=== PATIENT | female | born 1935 | race Caucasian/White ===

== ENCOUNTER 2023-07-29 14:34 | Outpatient (CLI) | payer MEDICARE, SELFPAY ==
--- NOTE | 2023-07-29 14:42 | USCV_ITS ---
Jes Durbin Age: 88 Gender: F : 1935 Exam Date: 07/29/2023 14:52 Ordering Phys: Kathy Person Technologist: Natacha Howell Exam Location: [facility] – [place] Indication: CARDIAC ARRHYTHMIA BP: 120 / 70 HR: 76 Rhythm: Other Technical Quality: Adequate MEASUREMENTS (Male / Female) Normal Values 2D ECHO LV Diastolic Diameter PLAX 3.5 cm 4.2 - 5.9 / 3.9 - 5.3 cm LV Systolic Diameter PLAX 2.3 cm LV Chamber Size 3.2 cm IVS Diastolic Thickness 1.2 cm 0.6 - 1.0 / 0.6 - 0.9 cm IVS Systolic Thickness 1.1 cm LVPW Diastolic Thickness 1.3 cm 0.6 - 1.0 / 0.6 - 0.9 cm LVPW Systolic Thickness 1.6 cm RV Chamber Size 3.1 cm LVOT Diameter 2.0 cm LV Ejection Fraction 2D Teich 63.8 % LA Diameter 4.0 cm LA Width 4.0 cm LA Height 5.7 cm RA Width 3.9 cm RA Height 3.7 cm Aorta at Sinotubular Diameter 2.4 cm IVC Diameter 2.1 cm M-MODE Aortic Annulus Diameter 2.5 cm LA Ao Ratio MM 1.8 MV E Point Septal Separation 1.9 cm DOPPLER AV Peak Velocity 416.0 cm/s LVOT Peak Velocity 117.0 cm/s AV Area Cont Eq vti 0.9 cm squared AV Area Cont Eq pk 0.9 cm squared MV Peak Velocity 194.0 cm/s MV Area PHT 1.4 cm squared Mitral E to A Ratio 1.4 MV E' Velocity 100.0 cm/s Mitral E to MV E' Ratio 10.3 Mitral E to LV E' Lateral Ratio 14.8 Mitral E to LV E' Septal Ratio 7.8 TR Peak Velocity 302.1 cm/s TR Peak Gradient 36.5 mmHg TR Mean Velocity 219.1 cm/s TR Mean Gradient 21.9 mmHg TR Velocity Time Integral 73.5 cm Right Atrial Pressure 3.0 mmHg Pulmonary Artery Systolic Pressu 39.5 mmHg RV Acceleration Time 0.2 s RV Ejection Time 0.3 s RV AcT/ET 0.5 FINDINGS Left Ventricle Normal left ventricular cavity size. Moderate left ventricular hypertrophy. Normal left ventricular systolic function. No regional wall motion abnormalities. Grade II/IV diastolic dysfunction, moderately elevated filling pressures. Left ventricular ejection fraction is estimated at 70 %. Right Ventricle Normal right ventricular size and systolic function. Mild pulmonary hypertension, RVSP 39.5 mmHg. Right Atrium Severely increased right atrial size. Left Atrium Severely increased left atrial size. Mitral Valve Structurally normal mitral valve. Moderate mitral valve regurgitation. The mitral regurgitation jet is directed toward the atrial septum. This suggest greater dysfunction of the posterior mitral valve leaflet. Aortic Valve Structurally normal trileaflet aortic valve. Severe aortic valve calcification. Moderate to severe aortic valve stenosis, mean gradient 36.2 mmHg, KARI 0.92 cm squared. No aortic valve regurgitation. Tricuspid Valve Structurally normal tricuspid valve. Mild tricuspid valve regurgitation. Pulmonic Valve Pulmonic valve not well visualized. Pericardium Normal pericardium without effusion. Aorta Normal ascending aorta dimension. IVC The inferior vena cava appears normal. CONCLUSIONS Normal left ventricular cavity size. Moderate left ventricular hypertrophy. Normal left ventricular systolic function. No regional wall motion abnormalities. Grade II/IV diastolic dysfunction, moderately elevated filling pressures. Left ventricular ejection fraction is estimated at 70 %. Normal right ventricular size and systolic function. Mild pulmonary hypertension, RVSP 39.5 mmHg. Severely increased right atrial size. Severely increased left atrial size. Structurally normal mitral valve. Moderate mitral valve regurgitation. The mitral regurgitation jet is directed toward the atrial septum. This suggest greater dysfunction of the posterior mitral valve leaflet. Structurally normal trileaflet aortic valve. Severe aortic valve calcification. Moderate to severe aortic valve stenosis, mean gradient 36.2 mmHg, KARI 0.92 cm squared. No aortic valve regurgitation. There are no prior echocardiogram studies to compare. Dr. Nikita Jeffries MD (Electronically Signed) Final Date: 29 July 2023 16:26 S
== END 2023-07-29 14:35 | disposition home or self-care (01) ==
LOC: RAD 14:38
PROVIDERS: Family Provider Physician Assistant Medical; Visit Provider Nurse Practitioner Family
DX: R01.1 Cardiac murmur, unspecified (principal); I27.20 Pulmonary hypertension, unspecified; I51.89 Other ill-defined heart diseases; I51.7 Cardiomegaly; I35.0 Nonrheumatic aortic (valve) stenosis; I34.0 Nonrheumatic mitral (valve) insufficiency
CPT/HCPCS: 93306

== ENCOUNTER → 2023-08-21 15:08 | Outpatient (BNVA) | payer MEDICARE, SELFPAY | PROVIDERS: Family Provider Physician Assistant Medical; PCP Family Medicine; Referring Provider Family Medicine; Visit Provider Internal Medicine | DX: R07.9 Chest pain, unspecified (principal); I35.0 Nonrheumatic aortic (valve) stenosis; I50.30 Unspecified diastolic (congestive) heart failure; R94.31 Abnormal electrocardiogram [ECG] [EKG] | CPT/HCPCS: 93005; 99205 ==

== ENCOUNTER 2023-09-24 08:37 | Outpatient (CLI) | payer MEDICARE, SELFPAY ==
--- NOTE | 2023-09-24 09:00 | XACV_ITS ---
Exam Room: 2 Ht: 152 cm Wt: 42 kg BSA: 1.33 m2 Gender: Female : 1935 Any Known Allergies: Penicillins Exam Priority: Routine Procedure(s): Procedure Description: Diagnostic procedure Procedure Description: Left Heart Catheterization Procedure Description: Right Heart Catheterization Procedure Description: O2 saturation Procedure Description: Miscellaneous Procedure Description: ACT Procedure Description: Coronary Angiography Diagnostic Cath Status: Elective Diagnostic Findings * Indication: Severe aortic stenosis. * Left Main is a short vessel. No significant disease.. * Left Anterior Descending has diffuse moderate disease.. * Circumflex has mild luminal irregularities. * Proximal Right Coronary Artery: Moderate 60% stenosis, KAMI: 3 flow. * Right heart cath and aortic valve study: Elevated right and left-sided cardiac pressures. Moderate pre and postcapillary pulmonary hypertension. Severe aortic stenosis. Aortic valve area: 0.6 cm2 Mean gradient across aortic valve is 37 mmHg. * Coronary angiography shows right dominance. Conclusions 1. Moderate proximal RCA stenosis. Medical therapy. 2. Severe aortic stenosis. 3. Moderate pre and postcapillary pulmonary hypertension. Elevated right and left-sided cardiac pressures. Recommendations * We will refer patient for TAVR evaluation. * Outpatient cardiology follow-up in 2 to 4 weeks. Interventional RX Recommendation: other cardiac therapy w/o CABG/PCI Diagnostic RX Recommendation: other cardiac therapy w/o CABG/PCI Pressures Phase:Rest AO : 104 / 79 ( 86 ) @ 10:56:00 AM 142 / 65 ( 96 ) @ 11:13:00 AM 145 / 63 ( 96 ) @ 11:13:00 AM 164 / 59 ( 100 ) @ 11:14:00 AM LV : 166 / 0 / 10 @ 11:13:00 AM 170 / 0 / 11 @ 11:13:00 AM RV : 52 / 3 / 13 @ 10:36:00 AM PA : 60 / 20 ( 36 ) @ 10:35:00 AM RA : a wave = 16 v wave = 12 mean = 12 @ 10:37:00 AM PCW : a wave = 25 v wave = 31 mean = 23 @ 10:34:00 AM O2 Content Phase:Rest PA : O2 Content O2: 62.1 @ 11:13:00 AM Saturations Phase:Rest AO : 95 @ 10:56:00 AM PA : 62 @ 11:13:00 AM Cardiac Output Phase:Rest Estuardo : 2 @ 11:39:29 AM Estuardo Cardiac Index: 2 @ 11:39:29 AM Flow Phase:Rest Qp : 2 @ 11:39:29 AM Qs : 2 @ 11:39:29 AM Valves Phase:DefaultPhase AV : 25.0 @ 11:39:29 AM 25.0 @ 11:39:29 AM AV Mean Gradient: 37.0 @ 11:39:29 AM 37.0 @ 11:39:29 AM AV Flow: 140 @ 11:39:29 AM AV Area: 0.5 @ 11:39:29 AM AV Area Index: 0.39 @ 11:39:29 AM Clinical Evaluation EBL: 5mL-10mL Procedural Details Procedure Consent Obtained. Admit Source: Out Patient. Pre-Procedure Time Out. Identified patient by full name and date of as verbalized by the patient/guarantor. Does the consent match the physician's order: Yes. Accurate & Complete Informed Consent: Yes. Inpatient/Outpatient History & Physical on Chart: Yes. If H&P is completed, is and addenduem needed: Yes; If yes, is the addendum complete: Yes. Visualize and Verify Site with Patient/Guarantor: N/A. Relevant Radiology Images available: Yes. The risks, benefits, and alternatives of sedation and/or procedure were discussed by physician. The patient agrees to continue. Procedure started. [facility] Clinical Fraility Score: 4: Vulnerable. Local Bulk Driver Indications: Valvular Disease. Correct patient, site and procedure confirmed by cath team. Current diagnosis: Aortic valve stenosis, Dyspnea. PERRLA. Strong, equal hand quarter backer bilaterally. Lungs clear x 5 lobes. IV Site on Arrival: 20 gauge in the left anticubital. IV Site on Arrival: 20 gauge in the right anticubital. IV Fluids: 0.9% NaCl at 75ml/hr. 0 mL infused prior to superintendent geophysical laboratory. Pre Procedural Pulses: bilateral dorsalis pedis was 3+. Pre Procedural Pulses: bilateral posterior tibial was 3+. Pre Procedural Pulses: bilateral radial was 3+. right radial was prepped with chloroprep then draped in the usual sterile fashion. right brachial was prepped with chloroprep then draped in the usual sterile fashion. right groin was prepped with chloroprep then draped in the usual sterile fashion. Baseline sample Acquired. HR: 77 BPM. Physician notified. Physician arrived. Physician scrubbed in. Immediate Pre-Procedure Time Out. Correct Patient: Yes; Correct Procedure: Yes; Correct Site: Yes; Correct Patient Position: Yes; Correct Supplies: Yes; Dried Flammable Prep: Yes; Blood Products Available: No;. Lidocaine 1% infiltrated to the right brachial. [place] MON catheter inserted. [place] guidewire in through swan catheter to reposition catheter. [place] wire out. Oximetry samples obtained. Normal venous range 60-85%. Normal arterial range :95-100%. Pressure measurements obtained. [place] out. Lidocaine 1% infiltrated to the right radial. Arterial access obtained. ABG drawn and sent with respiratory therapy. A 5 [place] TIG catheter in over wire. Wire out. Hand injection through catheter. Glidewire in through catheter. Unable to advance glidewire. Catheter and wire out. A TR Band was successful obtaining hemostatsis at the Right Radial artery insertion site. Lidocaine 1% infiltrated to the right groin. Oxygen started at 2liters/min via nasal canula. Arterial access obtained with micropuncture set. A 5 [place] JL4 catheter in over wire. Multiple views taken of left coronary artery. Catheter removed over the exchange wire. A 5 [place] JR4 catheter in over wire. Multiple views taken of right coronary artery. Glidewire in through catheter. Catheter removed over the glidewire. A 5 [place] AL1 catheter in over glidewire. Catheter advanced to left ventricle. Glidewire out. Exchange wire in through catheter. Catheter removed over the exchange wire. 6Fr [place] dual lumen catheter in over exchange wire. Exchange wire out. Gradient taken: LV 170/0,11; AO 145/63(96); Mean: 37mmHg, Peak to Peak: 25mmHg, SEP: 16sec/min; HR: 70 BPM; SpO2: 95%. Catheter removed over the exchange wire. Wire out. ACT drawn. Results 155 seconds. Therapeutic limits - pre-heparin administration 90-150 seconds and monitoring heparin during a vascular procedure >250 seconds. Physician scrubbed out. Post Procedure: Pulses reassessed and unchanged. PERRLA. Strong, equal hand quarter backer bilaterally. No VTE prophylaxis required. Medication's Wasted: Lidocaine 1% = 6 mL. Medication's Wasted: Nitro = 49.8 mg. Medication's Wasted: Other = Fentanyl 87.5 mcg. Medication's Wasted: Heparin = 2500 units. Total IV fluids: 50 mL. Post-op diagnosis: Severe Aortic Stenosis, Moderate RCA stenosis. Complications: None. Estimated blood loss: 5mL-10mL. Responsiveness - Normal response to verbal stimuli; alert and oriented, PERRLA. Airway - Unaffected, no intervention required; spontaneous ventilation. Circulation: W/N/L, pulses unchanged. Nausea/Vomiting: No. A Manual Compression was successful obtaining hemostatsis at the Right Brachial Vein insertion site. A Manual Compression was successful obtaining hemostatsis at the Right Femoral artery insertion site. Sheath(s) removed and manual pressure held until hemostasis was achieved. Sterile 4x4 and Op-site applied to the puncture site. No oozing or hematoma noted. Post sheath removal instructions were given and the patient verbalized understanding. Procedure completed. Patient transferred by bed to 1st floor. Vital chart was stopped. Access Site Site: Right Brachial Vein Sheath Size: 6 Fr Hemostasis Method: Manual Compression Hemostasis Success: Successful Site: Right Radial artery Sheath Size: 6 Fr Hemostasis Method: TR Band Hemostasis Success: Successful Site: Right Femoral artery Sheath Size: 6 Fr Hemostasis Method: Manual Compression Hemostasis Success: Successful Procedure Medications Start: 10:27 AM Stop: :27 AM Medication: Versed Amount: 0.5 mg Route: I.V. Start: 10:27 AM Stop: 10:27 AM Medication: Fentanyl Amount: 12.5 mcg Route: I.V. Start: 10:37 AM Stop: 10:37 AM Medication: Versed Amount: 0.5 mg Route: I.V. Start: 10:42 AM Stop: 10:42 AM Medication: Nitrogylcerin Amount: 200 mcg Route: I.A. Start: 10:55 AM Stop: 10:55 AM Medication: Versed Amount: 0.5 mg Route: I.V. Start: 11:03 AM Stop: 11:03 AM Medication: Heparin Amount: 1500 units Route: I.V. Start: 11:05 AM Stop: 11:05 AM Medication: Versed Amount: 0.5 mg Route: I.V. I, the attending physician, have reviewed and verified all procedure medications. Yes, all medications given per verbal order History/Risk Factors Hypertension: No Dyslipidemia: No Peripheral Arterial Disease (PAD): No Myocardial Infarction ([place]): No Obesity: No Renal Disease: No Tobacco Use: Never Prior Interventions PCI: No CABG: No Valve Surgery: No Report Signatures Finalized by Teja Rdz MD on 09/30/2023 11:39 AM
[2023-09-24] MEDS: aspirin 325 mg Tablet PO (09:10)
[2023-09-24] MEDS: diphenhydrAMINE 50 mg Capsule PO (09:15)
[2023-09-24 09:26] LABS: Basophils # 0.1 10^3/uL (0.0-0.1); Basophils % 0.9 %; Eosinophils # 0.2 10^3/uL (0.0-0.8); Eosinophils % 2.9 %; Hematocrit 39.3 % (36-47); Lymphocytes # 2.1 10^3/uL (0.8-4.8); Lymphocytes % 27.4 %; Mean Corpuscular HGB Conc 30.8 g/dL (30-55); Mean Corpuscular Hemoglobin 26.8 pg (27-33); Mean Corpuscular Volume 86.9 fl (85-98); Mean Platelet Volume 9.6 fL (7.4-10.4); Monocytes % 12.8 %; Neutrophils # 4.35 10^3/uL (1.8-7.7); Neutrophils % 55.7 %; Nucleated Red Blood Cells % 0 %; Platelet Count 231 10^3/cmm (157-399); Red Blood Count 4.52 10^6/uL (3.85-5.65); Red Cell Distribution Width 13.4 % (12.1-15.1); White Blood Count 7.81 10^3/uL (3.29-11.43)
[2023-09-24 09:31] VITALS: BP 169/95; PULSE 71; RESP 20; O2SAT 97; BMI 18.1
[2023-09-24 10:01] LABS: Anion Gap 12.6 (5-19); Blood Urea Nitrogen 18 mg/dL (8-23); Calcium 9.9 mg/dL (8.5-10.5); Carbon Dioxide 26 mmol/L (22-29); Chloride 101 mmol/L (98-107); Glucose 116 mg/dL (65-115); Osmolality Calculated 285 mOsm/kg (285-295); Potassium 3.6 mmol/L (3.5-5.1); Sodium 136 mmol/L (136-145)
--- NOTE | 2023-09-24 10:13 | W.PM.OPSFHP ---
Same Day Surgery H&P Indication for Procedure/HPI DATE OF PROCEDURE: September 24, 2023 CHIEF COMPLAINT/INDICATIONFOR SURGICAL PROCEDURE: Dyspnea on exertion/ severe aortic stenosis PREOP DIAGNOSIS: Dyspnea on exertion/ severe aortic stenosis PLANNED PROCEDURE: Operation Date: 09/24/23 10:00 Proposed Procedures p Right and Left Heart Cath 89438,I35.0,I20.0(Bilateral) - Teja Rdz M.D Possible percutaneous coronary intervention 88-year-old woman with past medical history of hypertension who has recently been diagnosed with severe aortic stenosis with aortic valve area of 0.9 cm? and mean gradient of 36 mmHg. She has been having dyspnea on exertion. Plan for right and left heart cath with valve study. Medications/Allergies* Home Medications Medication Instructions Recorded Confirmed Type amlodipine 5 mg tablet (Norvasc) 5 mg PO DAILY 08/21/23 09/24/23 History atenolol 100 mg tablet 100 mg PO DAILY 08/21/23 09/24/23 History furosemide 20 mg tablet (Lasix) 20 mg PO DAILY 08/21/23 09/24/23 History omeprazole 40 mg capsule,delayed 40 mg PO DAILY 08/21/23 09/24/23 History release potassium chloride 20 mEq 20 meq PO DAILY 08/21/23 09/24/23 History tablet,extended release trazodone 150 mg tablet 150 mg PO DAILY 08/21/23 09/24/23 History Allergies/Adverse Reactions Allergy/AdvReac Type Severity Reaction Status Date / Time Penicillins Allergy Unknown Unknown Verified 08/21/23 15:13 Current Medications: Generic Name Dose Route Start Last Admin Trade Name Freq PRN Reason Stop Dose Admin Sodium Chloride 1,000 mls @ 50 mls/hr 09/24/23 09:00 09/24/23 09:37 Sodium Chloride 0.9% IV 09/25/23 04:59 Not Given .Q20H ONE Pertinent Exam Findings alert, oriented x 3, clear to auscultation bilaterally and regular rate & rhythm Conscious Sedation Assessment PATIENT ASSESSED PRIOR TO SEDATION, WITH NO CHANGE NOTED: Yes AIRWAY EVAL/ANESTHESIA PLAN: normal airway, ASA III, Local Anesthesia, Risks, benefits & alternatives of sedation and/or procedure discussed and Patient agrees to continue as planned ADDITIONAL INFORMATION: Moderate sedation Recommendations Surgery/Procedure today (Left heart cath with possible percutaneous coronary intervention) Coding Level of Care Code Acute Code for Chg Fwd
[2023-09-24 10:52] LABS: Arterial Blood Gas Hematocrit 36.2 % (37-47); Blood Gas Operator Identificat glc; Blood Gas Sample Site Not specified; Blood Gas Sample Type Arterial; Carboxyhemoglobin 1.1 %THgb (0.4-20.1); HGB O2 Sat 93.2 % (95-100); Methemoglobin 0.3 % (0.4-1.5); Total Hemoglobin 11.8 g/dL (12-16)
[2023-09-24 10:56] LABS: Alveolar-Arterial Oxygen Gradi 8.2 mmHg (5-10); Arterial Blood Gas Hematocrit 35.6 % (37-47); Blood Gas Operator Identificat glc; Blood Gas Sample Site Not specified; Blood Gas Sample Type Arterial; Carboxyhemoglobin 1.1 %THgb (0.4-20.1); HGB O2 Sat 61.2 % (95-100); Methemoglobin 0.3 % (0.4-1.5); Total Hemoglobin 11.6 g/dL (12-16)
--- NOTE | 2023-09-24 12:07 | PC.NURSE ---
Patient presents to CSU from catheter finisher and inspector via a bed at 1150. She has a right radial TR-band and a dressing on the right groin area. cheesemaking laborer pulled her sheath right before bring her to CSU.
[2023-09-24 13:26] VITALS: PULSE 66; RESP 16; O2SAT 98
--- NOTE | 2023-09-24 16:10 | PC.NURSE ---
Patient has a right radial TR-band. 2ml's of air is removed at 1326. 2ml's of air is removed at 1358. 2ml's of air is removed at 1506. 2ml's of air is removed at 1515. 2ml's of air is removed at 1530. 2ml's of air is removed at 1545. TR-band is removed at 1610. No hematoma is noted. Dressing of a 2 x 2 and tegaderm is applied. Patient tolerated well.
[2023-09-24 16:30] VITALS: BP 132/64; PULSE 72; RESP 22; TEMP 36.6; O2SAT 97
--- NOTE | 2023-09-24 17:52 | PC.NURSE ---
Patient is being discharged to with family. Medication review, heart catheterization, post angiogram home care instructions, and follow up visits are discussed. Questions are answered. Belongings are sent with patient. Vitals are HR: 78, R: 16, O2: 97%, and BP:146/64. Patient left via a wheelchair.
== END 2023-09-24 18:16 | disposition home or self-care (01) ==
LOC: CCL 08:40 → CSU 11:55
PROVIDERS: PCP Family Medicine; Visit Provider Internal Medicine
DX: I35.0 Nonrheumatic aortic (valve) stenosis (principal); I27.20 Pulmonary hypertension, unspecified; I10 Essential (primary) hypertension; E78.5 Hyperlipidemia, unspecified
CPT/HCPCS: 36415; 80048; 82810; 85025; 85347; 93460; 96361; 96365; 99152; 99153; C1751; C1769; C1887; C1894; J1644; J2250; J3010; J3490; J7030; Q0163; Q9967

== ENCOUNTER → 2023-10-02 08:41 | Outpatient (BNVA) | payer MEDICARE, SELFPAY | PROVIDERS: PCP Family Medicine; Visit Provider Nurse Practitioner Family | DX: I35.0 Nonrheumatic aortic (valve) stenosis (principal) | CPT/HCPCS: 36415; 80048; 99214 ==

== ENCOUNTER 2023-10-09 09:42 | Observation (INO) | payer MEDICARE, SELFPAY ==
[2023-10-09] VITALS (11 sets, daily range): BP systolic 90–145; BP diastolic 48–70; PULSE 75–89; RESP 16–22; TEMP 36.7–37.6; O2SAT 87–95; BMI 18.3; BMI 18.2
--- NOTE | 2023-10-09 09:53 | ECG_ITS ---
[facility] Test Date: 2023-10-09 Pat Name: Jes Durbin Department: Room: Gender: Female Brass Buffer: : 1935 Requested By: Suman Kidd Order Number: [id number] MD: Cesar Kessler M.D. Measurements Intervals [place] Rate: 83 P: 75 [place]: 145 QRS: 63 QRSD: 128 T: 80 QT: 389 QTc: 460 Interpretive Statements SINUS RHYTHM WITH SINUS ARRHYTHMIA LEFT VENTRICULAR HYPERTROPHY AND ST-T CHANGE [VOLTAGE CRITERIA PLUS ST/T ABNORMALITY] POSSIBLE ANTERIOR MYOCARDIAL INFARCTION , OF INDETERMINATE AGE [30 ms Q WAVE IN V3/V4, OR R < 0.2 mV IN V4] Compared to ECG 08/21/2023 15:23:29 Left ventricular hypertrophy now present ST (T wave) deviation now present Myocardial infarct finding still present Electronically Signed On 10-10-2023 19:16:22 HOIST[place] by Cesar Kessler M.D. [id number]
--- NOTE | 2023-10-09 09:56 | XRR_ITS ---
PROCEDURE INFORMATION: Exam: XR Chest Exam date and time: 10/09/2023 10:11 AM Age: 88 years old Clinical indication: Shortness of breath; Additional info: SOB TECHNIQUE: Imaging protocol: Radiologic exam of the chest. Views: 1 view. COMPARISON: No relevant prior studies available. FINDINGS: Lungs: Vascular engorgement, interstitial edema, and bilateral pleural effusions indicate congestive heart failure. Nodules are present in the right lower lobe, perhaps related infiltrates but actual nodules not excluded. Chest CT recommended for further evaluation. Pleural spaces: See Lungs finding. Heart/Mediastinum: Unremarkable. No cardiomegaly. Bones/joints: Unremarkable. XR/XR chest 1V portable [id number] IMPRESSION: CHF with possible pulmonary nodules. Chest CT recommended.
--- NOTE | 2023-10-09 10:04 | ED_ITS ---
HPI - SOB/Dyspnea 2 General: Chief Complaint: Shortness of Breath/Dyspnea Stated Complaint: sob Time Seen by Provider: 10/09/23 09:56 Source: patient Mode of arrival: ambulatory Limitations: no limitations History of Present Illness: HPI Narrative: 88-year-old female with history aortic s tenosis, congestive heart failure states she has had increasing shortness of breath over the last 2 weeks is getting much worse since last night states she has had a increasing cough especially since yesterday. She states she has been having wheezing dyspnea with exertion she denies any pain she had a cardiac cath 3 weeks ago. She denies any vomiting or diarrhea. Associated symptoms: Deny abdominal pain, chest pain, fever(s), nausea or vomiting Review of Systems 2 Const: Denies: fever(s), chills, body aches or change in appetite ENMT: Denies: throat pain or dental pain Card: Denies: chest pain Resp: Reports: dyspnea and non-productive cough GI: Denies: abdominal pain, nausea, vomiting or diarrhea : Denies: dysuria Musc: Denies: neck pain or back pain Skin/Breast: Denies: rash Neuro: Denies: headache(s) Physical Exam 2 Const: COMMON NORMALS: patient oriented x3 HENMT: COMMON NORMALS: normocephalic and atraumatic HEAD & SCALP: n ormocephalic and atraumatic Eye: COMMON NORMALS: Equal, round and reactive pupils present and EOMs intact bilaterally PUPIL: Yes Equal, round and reactive pupils present Neck/C-Spine: COMMON NORMALS: full ROM and supple Chest: COMMONS NORMALS: normal inspection of the chest and normal palpation of entire chest wall Resp: COMMON NORMALS: normal respiratory effort, No retractions and No use of accessory muscles AUSCULTATION: rhonchi Cardio: COMMON NORMALS: regular rate, regular rhythm and No murmurs present (Cardio) RATE: regular rate RHYTHM: regular rhythm GI: COMMON NORMALS: Normal to inspection, nondistended, normoactive bowel sounds present, Soft to palpation, non-tender and no masses PALPATION: Yes Soft to palpation Extremity: COMMON NORMALS: normal to inspection and full ROM Neuro: COMMON NORMALS: patient oriented x3, moves all extremities and no focal motor deficits Psych: COMMON NORMALS: mental status grossly normal, Normal thought process present and cooperative THOUGHT PROCESS: Normal thought process present Skin: COMMON NORMALS: no rashes or lesions noted and no wounds GENERAL SKIN EXAM: no rashes or lesions noted Course 2 Vital Signs: Vital signs: Vital Signs Temperature 98.0 F 10/09/23 09:43 Pulse Rate 79 10/09/23 10:37 Respiratory Rate 18 10/09/23 10:33 Blood Pressure 132/67 10/09/23 09:43 Pulse Oximetry 95 10/09/23 10:33 Oxygen Delivery Me thod Room Air 10/09/23 10:33 MDM - SOB/Dyspnea Medical Decision Making Patient presents here with shortness of breath x-ray shows right-sided pulmonary edema versus pulmonary effusion or pneumonia. Will get CT of her chest we will diurese her here start antibiotics I spoke to the hospitalist will admit. Medical Records I reviewed the patient's medical records. Lab Data I reviewed the patient's lab results. 10/09/23 10:12 10/09/23 10:12 Labs/Radiology: Radiology Impressions Chest X-Ray 10/09/23 09:56 IMPRESSION: CHF with possible pulmonary nodules. Chest CT recommended. Laboratory Results WBC 10.21 10^3/uL (3.29-11.43) 10/09/23 10:12 RBC 4.39 10^6/uL (3.85-5.65) 10/09/23 10:12 Hgb 11.90 g/dL (11.27-16.99) 10/09/23 10:12 Hct 37.0 % (36-47) 10/09/23 10:12 MCV 84.3 fl (85-98) L 10/09/23 10:12 MCH 27.1 pg (27-33) 10/09/23 10:12 MCHC 32.2 g/dL (30-55) 10/09/23 10:12 RDW 14.0 % (12.1-15.1) 10/09/23 10:12 Plt Count 228 10^3/cmm (157-399) 10/09/23 10:12 MPV 9.6 fL (7.4-10.4) 10/09/23 10:12 Neut % (Auto) 84.6 % 10/09/23 10:12 Lymph % (Auto) 5.3 % 10/09/23 10:12 [place] % (Auto) 9.1 % 10/09/23 10:12 Eos % (Auto) 0.2 % 10/09/23 10:12 Baso % (Auto) 0.4 % 10/09/23 10:12 Neut # (Auto) 8.64 10^3/uL (1.8-7.7) H 10/09/23 10:12 Lymph # (Auto) 0.5 10^3/uL (0.8-4.8) L 10/09/23 10:12 [place] # (Auto) 0.9 10^3/uL (0.2-0.9) 10/09/23 10:12 Eos # (Auto) 0.0 10^3/uL (0.0-0.8) 10/09/23 10:12 Baso # (Auto) 0.0 10^3/uL (0.0-0.1) 10/09/23 10:12 Nucleated RBC % (auto) 0 % 10/09/23 10:12 Nucleated RBCs # 0.0 /100WBC 10/09/23 10:12 Sodium 133 mmol/L (136-145) L 10/09/23 10:12 Potassium 4.0 mmol/L (3.5-5.1) 10/09/23 10:12 Chloride 96 mmol/L (98-107) L 10/09/23 10:12 Carbon Dioxide 27 mmol/L (22-29) 10/09/23 10:12 Anion Gap 14.0 (5-19) 10/09/23 10:12 BUN 16 mg/dL (8-23) 10/09/23 10:12 Creatinine 0.7 mg/dL (0.5-0.9) 10/09/23 10:12 GFR Calculation Not Reportable 10/09/23 10:12 Glucose 125 mg/dL (65-115) H 10/09/23 10:12 Calculated Osmolality 279 mOsm/kg (285-295) L 10/09/23 10:12 Calcium 10.0 mg/dL (8.5-10.5) 10/09/23 10:12 Total Bilirubin 0.4 mg/dL (0.15-1.2) 10/09/23 10:12 AST 29 U/L (0-32) 10/09/23 10:12 ALT 16 U/L (0-33) 10/09/23 10:12 Alkaline Phosphatase 129 U/L (35-105) H 10/09/23 10:12 NT-Pro-B Natriuret Pep 5643 pg/mL (0-450) H 10/09/23 10:12 Total Protein 7.6 g/dL (6.6-8.7) 10/09/23 10:12 Albumin 4.3 g/dL (3.5-5.2) 10/09/23 10:12 Globulin 3.3 g/dL (1.3-4.6) 10/09/23 10:12 No radiology studies performed this visit EKG Data EKG 1: I personally reviewed and interpreted this EKG as follows: EKG Interpretation Date: 10/09/23 EKG interpretation time: 09:53 Interpretation: nsr hr [address] or t wave abnormalities qrs 128 qtc 429 Discharge Plan Discharge Patient Disposition: Admitted As Inpatient Clinical Impression: Aortic stenosis, CHF exacerbation Condition: Stable Prescriptions: No Action potassium chloride 20 mEq tablet extended release 20 meq PO QAM furosemide [Lasix] 20 mg tablet 20 mg PO QAM amlodipine [Norvasc] 5 mg tablet 5 mg PO QAM atenolol 100 mg tablet 100 mg PO QPM omeprazole 40 mg capsule,delayed release(DR/EC) 40 mg PO QAM trazodone 150 mg tablet 150 mg PO QPM Referrals: Stoney Jo [Primary Care Provider] - Coding Level of Care Code ED Brass Roller for Chg Chirag
[2023-10-09 10:26] LABS: Basophils % 0.4 %; Eosinophils % 0.2 %; Lymphocytes # 0.5 10^3/uL (0.8-4.8); Lymphocytes % 5.3 %; Mean Corpuscular HGB Conc 32.2 g/dL (30-55); Mean Corpuscular Hemoglobin 27.1 pg (27-33); Mean Corpuscular Volume 84.3 fl (85-98); Mean Platelet Volume 9.6 fL (7.4-10.4); Monocytes # 0.9 10^3/uL (0.2-0.9); Monocytes % 9.1 %; Neutrophils # 8.64 10^3/uL (1.8-7.7); Neutrophils % 84.6 %; Nucleated Red Blood Cells % 0 %; Platelet Count 228 10^3/cmm (157-399); Red Blood Count 4.39 10^6/uL (3.85-5.65); White Blood Count 10.21 10^3/uL (3.29-11.43)
[2023-10-09] MEDS: ipratropium-albuterol 3 mL Neb INHALATION ×3 (10:33→20:48)
--- NOTE | 2023-10-09 10:41 | CT_ITS ---
WS: [id number] CTA OF THE CHEST WITH PULMONARY EMBOLISM PROTOCOL TECHNIQUE: High-resolution contrast enhanced CTA of the chest with coronal and sagittal reformatted i anams with pulmonary embolism protocol. MIP images are also reviewed. CLINICAL INFORMATION: sob COMPARISON: None. DLP: 162.[address] scans at [facility] use at least one of these dose optimization techniques: automated e xposure control; mA and/or kV adjustment per patient size (includes targeted exams where dose is matc hed to clinical indication); or iterative reconstruction. FINDINGS: Proximal pulmonary arteries are normal. Normal segmental and subsegmental pulmonary arteries. No fill ing defects. No evidence of pulmonary embolus. Normal caliber thoracic aorta. Aortic calcification. No mediastinal or hilar lymphadenopathy. No axil adelaida lymphadenopathy. Small bilateral pleural effusions. Compressive atelectasis in the lung bases. P atchy hazy groundglass infiltrates in both lower lobes with bronchiectasis. Areas of groundglass infi ltrates in the RIGHT greater than LEFT lower lobes. Recommend correlation for COVID-pneumonia. Subseg mental atelectasis RIGHT middle lobe with a few groundglass infiltrates. Mild thoracic curve. Thoracic kyphosis. Splenic granulomas. Small esophageal hiatal hernia. Adrenal glands are normal. Incidental hepatic cys t. IMPRESSION: 1. No evidence of pulmonary embolus. 2. Small bilateral pleural effusions with patchy infiltrates and compressive atelectasis in the lung bases. 3. Additional nodular groundglass infiltrates in both lower lobes and RIGHT middle lobe. Recommend c orrelation for COVID-pneumonia. 4. Bronchiectasis in the RIGHT middle lobe. 5. Small esophageal hernia.
[2023-10-09 10:55] LABS: Alanine Aminotransferase 16 U/L (0-33); Albumin Level 4.3 g/dL (3.5-5.2); Alkaline Phosphatase 129 U/L (35-105); Aspartate Amino Transferase 29 U/L (0-32); Blood Urea Nitrogen 16 mg/dL (8-23); Carbon Dioxide 27 mmol/L (22-29); Chloride 96 mmol/L (98-107); Creatinine Clr Calc Pharmacy 34.0365; Globulin 3.3 g/dL (1.3-4.6); Glucose 125 mg/dL (65-115); NT Pro B Type Natriuretic Pept 5643 pg/mL (0-450); Osmolality Calculated 279 mOsm/kg (285-295); Sodium 133 mmol/L (136-145); Total Bilirubin 0.4 mg/dL (0.15-1.2); Total Protein 7.6 g/dL (6.6-8.7)
[2023-10-09] MEDS: FUROsemide 10 mg/mL SDV 10mL 60 MG IVP (11:17)
[2023-10-09] MEDS: cefTRIAXone 1,000 MG in sodium chloride 0.9% (plus) 50 ML 100 MG IV (11:21)
--- NOTE | 2023-10-09 11:58 | PC.NURSE ---
PT CARE TRANSFERED AT 11 TO ONCOMING NURSE
[2023-10-09] MEDS: iohexol 350 mg/mL 500 mL Btl (per mL) IV (12:10)
--- NOTE | 2023-10-09 12:42 | PM.HP ---
Documented by User: [email or web address] Tobar 10/09/23 13:33 Providers/Chief Complaint Admitting Physician: Jason England MD Primary Care Provider: Stoney Jo Chief Complaint: sob History of Present Illness Patient is 88-year-old female with a past medical history of diastolic CHF, aortic stenosis who presents to the emergency room with increased shortness of breath and dyspnea. Patient will be admitted to the hospital for further medical management of acute CHF exacerbation and community-acquired pneumonia. Patient reports ongoing increased shortness of breath for the past couple of months. Patient had a recent echocardiogram on 07/29/2023 which showed severe aortic valve calcification with severe aortic valve stenosis. Patient was referred to [facility] for a TAVR. Procedure has not taken place yet. This recent visit today, 10/09/2023, patient reports increased shortness of breath/dyspnea that has worsened over the past week or so. Reports last night, she had increased nonproductive cough with audible wheezes and dyspnea with exertion. States that she is unable to take more than 10 steps without becoming short of breath and weak. She denies any generalized pain, coughing blood, vomiting, nausea, diarrhea, chest discomfort, or extremity swelling. Reports alleviating factors of sleeping upright in a chair at night and rest. While in the emergency room, laboratory studies and radiology imaging were performed and stated below. Patient received and nebulized DuoNeb treatment, azithromycin, ceftriaxone, Lasix 60 mg IV. Review of Systems Narrative: Comprehensive 10 point ROS is negative except as noted in the HPI above. Resp: Reports: dyspnea, non-productive cough, wheezing and chest congestion Medications/Allergies Home Medications Medication Instructions Recorded Confirmed Last Taken Type amlodipine 5 mg tablet (Norvasc) 5 mg PO QAM 08/21/23 10/09/23 10/09/23 History atenolol 100 mg tablet 100 mg PO QPM 08/21/23 10/09/23 10/08/23 History furosemide 20 mg tablet (Lasix) 20 mg PO QAM 08/21/23 10/09/23 10/09/23 History omeprazole 40 mg capsule,delayed 40 mg PO QAM 08/21/23 10/09/23 10/09/23 History release potassium chloride 20 mEq 20 meq PO QAM 08/21/23 10/09/23 10/09/23 History tablet,extended release trazodone 150 mg tablet 150 mg PO QPM 08/21/23 10/09/23 10/08/23 History Allergies Allergy/AdvReac Type Severity Reaction Status Date / Time Penicillins Allergy Unknown Unknown Verified 08/21/23 15:13 PFSH Acute PFSH: Medical History (Updated 10/09/23 @ 13:41 by Jason England MD) Coronary artery disease CHF exacerbation Diastolic congestive heart failure Aortic stenosis Surgical History (Updated 10/09/23 @ 13:41 by Jason England MD) History of coronary angiogram Social History Smoking and tobacco/nicotine status: never used tobacco/nicotine Second hand smoke exposure: No Alcohol intake: never Substance/Drug Use: never Lives independently: Yes Vitals/I&O/Wt Last Vital Signs Temp 98.0 F 10/09/23 09:43 Pulse 85 10/09/23 11:55 Resp 22 H 10/09/23 11:55 BP 145/70 10/09/23 11:55 Pulse Ox 87 L 10/09/23 11:55 O2 Del Method Room Air 10/09/23 10:33 Weight last 48 hrs Weight 42.638 kg Physical Exam Narrative: General: Alert, oriented, slight respiratory distress HEENT: Moist mucous membranes, head normocephalic Lymph: No lymphadenopathy noted Chest: Normal to inspection Respiratory: Slight respiratory distress, audible wheezes, inspiratory and expiratory wheezes and crackles throughout per auscultation. On room air at 92% SpO2 Cardio: RRR, pulses 2+ bilateral radial and dorsalis pedis. No edema to upper or lower extremity. 2/4 murmur. GI: Active bowel sounds throughout, nontender on palpation : Deferred Neuro: Alert oriented x 4, able to answer questions appropriately Skin: No rashes or lesions noted, right groin from recent PCI healed with small nodule (not red). Data 10/09/23 10:12 10/09/23 10:12 Other Labs: Alk phos 129, BNP 5643, sodium 133 CXR: My impression: Per my interpretation, interstitial edema with bilateral pleural effusions. Right lower lobe infiltrates. Radiologist's impression: CHF with possible pulmonary nodules. Chest CT recommended. CTA Chest: My impression: Per my interpretation, small bilateral pleural effusions with right lower lobe infiltrate Radiologist's impression: 1. No evidence of pulmonary embolus. 2. Small bilateral pleural effusions with patchy infiltrates and compressive atelectasis in the lung bases. 3. Additional nodular groundglass infiltrates in both lower lobes and RIGHT middle lobe. Recommend correlation for COVID-pneumonia. 4. Bronchiectasis in the RIGHT middle lobe. 5. Small esophageal hernia. EKG 1: My Interpretation: Sinus rhythm with PVCs. Bundle branch block. No ST elevation or depression EKG computer-generated impression: Sinus rhythm with sinus arrhythmia Left ventricular hypertrophy ST and T wave deviation now present. A&P Assessment and plan (1) CHF exacerbation: Patient with recent diagnosis of CHF and has increased work of breathing/dyspnea/shortness of breath. Most likely consistent with recent diagnosis of severe aortic stenosis that was found on echocardiogram that was performed on 07/29/2023. Echocardiogram revealed no regional wall motion abnormalities. Severe aortic valve calcification with severe aortic valve stenosis gradient 3 6.2 mmHg, KARI 0.92 cm?. grade 2/4 diastolic dysfunction, moderately elevated filling pressures. LVEF 70% mild pulmonary hypertension moderate mitral valve regurg. Patient recently referred to [facility] for a TAVR procedure due to echocardiogram findings and left heart cath findings. Coronary angiogram for aortic stenosis revealed no significant disease of left main, diffuse moderate disease of the LAD, no significant disease of the circumflex, proximal RCA contained 60% stenosis. Right heart cath elevated right and left sided cardiac pressures, moderate pre and postcapillary pulmonary hypertension. No complications with right radial/femoral cath site upon physical exam. TAVR scheduled but not yet performed. Patient will receive 40 mg IV Lasix every 12 hours. Telemetry (2) Community acquired pneumonia: Chest x-ray consistent with right lower lobe infiltrate. CTA confirms right lower lobe infiltrate with bilateral pleural effusions Continue azithromycin and Rocephin. Monitor and trend blood cultures Obtain and trend sputum Oxygen protocol. Maintain SpO2 >90% Will obtain flu and COVID swab (3) Aortic stenosis: As per #1 Patient has scheduled TAVR at [facility]. Qualifiers: Cardiac valve disease etiology: nonrheumatic Qualified Code(s): I35.0 - Nonrheumatic aortic (valve) stenosis Plan Plan as stated above. Will obtain flu and COVID swab. Sputum culture. We will trend blood culture results. Plan for diuresis and continue antibiotic treatment for pneumonia. Elevated glucose levels, will obtain A1c. CODE STATUS: Full code. In the event patient is unable to make decisions for herself, Anuj son make decisions for her. DVT prophylaxis: Lovenox Coding Level of Care Code 22656 Diagnoses CHF exacerbation I50.9 Community acquired pneumonia J18.9 Nonrheumatic aortic valve stenosis I35.0 Cardiac valve disease etiology: nonrheumatic Time Spent (min) 64 Documented by User: Jason England MD 10/09/23 13:43 Providers/Chief Complaint Chief Complaint: sob Medications/Allergies Home Medications Medication Instructions Recorded Confirmed Last Taken Type amlodipine 5 mg tablet (Norvasc) 5 mg PO QAM 08/21/23 10/09/23 10/09/23 History atenolol 100 mg tablet 100 mg PO QPM 08/21/23 10/09/23 10/08/23 History furosemide 20 mg tablet (Lasix) 20 mg PO QAM 08/21/23 10/09/23 10/09/23 History omeprazole 40 mg capsule,delayed 40 mg PO QAM 08/21/23 10/09/23 10/09/23 History release potassium chloride 20 mEq 20 meq PO QAM 08/21/23 10/09/23 10/09/23 History tablet,extended release trazodone 150 mg tablet 150 mg PO QPM 08/21/23 10/09/23 10/08/23 History Allergies Allergy/AdvReac Type Severity Reaction Status Date / Time Penicillins Allergy Unknown Unknown Verified 08/21/23 15:13 PFSH Acute PFSH: Medical History (Updated 10/09/23 @ 13:41 by Jason England MD) Coronary artery disease CHF exacerbation Diastolic congestive heart failure Aortic stenosis Surgical History (Updated 10/09/23 @ 13:41 by Jason England MD) History of coronary angiogram Social History Smoking and tobacco/nicotine status: never used tobacco/nicotine Second hand smoke exposure: No Alcohol intake: never Substance/Drug Use: never Lives independently: Yes Data 10/09/23 10:12 10/09/23 10:12 A&P Assessment and plan (1) CHF exacerbation: Patient with recent diagnosis of CHF and has increased work of breathing/dyspnea/shortness of breath. Most likely consistent with recent diagnosis of severe aortic stenosis that was found on echocardiogram that was performed on 07/29/2023. Echocardiogram revealed no regional wall motion abnormalities. Severe aortic valve calcification with severe aortic valve stenosis gradient 3 6.2 mmHg, KARI 0.92 cm?. grade 2/4 diastolic dysfunction, moderately elevated filling pressures. LVEF 70% mild pulmonary hypertension moderate mitral valve regurg. Patient recently referred to [facility] for a TAVR procedure due to echocardiogram findings and left heart cath findings. Coronary angiogram for aortic stenosis revealed no significant disease of left main, diffuse moderate disease of the LAD, no significant disease of the circumflex, proximal RCA contained 60% stenosis. Right heart cath elevated right and left sided cardiac pressures, moderate pre and postcapillary pulmonary hypertension. No complications with right radial/femoral cath site upon physical exam. TAVR scheduled but not yet performed. Patient will receive 40 mg IV Lasix every 12 hours. BMP daily, as Lasix is a potentially nephrotoxic medication. Telemetry Consistent with acute diastolic heart failure, likely valve related (2) Community acquired pneumonia: Chest x-ray consistent with right lower lobe infiltrate. CTA confirms right lower lobe infiltrate with bilateral pleural effusions Continue azithromycin and Rocephin. Monitor and trend blood cultures Obtain and trend sputum Oxygen protocol. Maintain SpO2 >90% Will obtain flu and COVID swab DuoNeb as needed (3) Aortic stenosis: Qualifiers: Cardiac valve disease etiology: nonrheumatic Qualified Code(s): I35.0 - Nonrheumatic aortic (valve) stenosis Attestations Medical Necessity Statement*: Will need less than 2 midnight stay for evaluation and treatment of acute CHF, diastolic as well as pneumonia. Diagnoses CHF exacerbation I50.9 Community acquired pneumonia J18.9 Nonrheumatic aortic valve stenosis I35.0 Cardiac valve disease etiology: nonrheumatic Time Spent (min) 64
--- NOTE | 2023-10-09 12:42 | PC.NURSE ---
ATTEMPTED REPORT AT 1158, NURSE TO CALL BACK. ATTEMPTING REPORT AGAIN [id number]
[2023-10-09 14:05] LABS: Estmated Average Glucose 105; Hemoglobin A1C 5.3 % (4.0-6.0)
[2023-10-09 14:11] LABS: Thyroid Stimulating Hormone 4.47 uIU/mL (0.27-4.20)
[2023-10-09] MEDS: azithromycin 500 MG in sodium chloride 0.9% 250 ML 250 MG IV (14:40)
[2023-10-09] MEDS: enoxaparin 40 mg/0.4 mL Syringe SUBCUT (14:40)
[2023-10-09] MEDS: trolamine salicylate 10% 141 gm Cream 1 APPLIC TOPICAL (14:41)
[2023-10-09 15:27] LABS: Influenza A by IFA negative (Negative); Influenza B by IFA negative (Negative)
[2023-10-09] MEDS: trazodone 150 mg Tablet PO (21:24)
[2023-10-09] MEDS: FUROsemide 10 mg/mL SDV 4mL 40 MG IVP (21:31)
[2023-10-10 02:28] VITALS: PULSE 78; RESP 17; O2SAT 93
[2023-10-10] MEDS: ipratropium-albuterol 3 mL Neb INHALATION (02:28)
[2023-10-10 04:04] VITALS: BP 110/72; PULSE 56; RESP 16; TEMP 36.9; O2SAT 91
[2023-10-10] MEDS: amlodipine 5 mg Tablet PO (05:01)
[2023-10-10] MEDS: potassium chloride ER 20 mEq Tablet PO (05:02)
[2023-10-10] MEDS: pantoprazole DR 40 mg Tablet PO (05:02)
[2023-10-10 06:00] VITALS: PULSE 77
[2023-10-10 06:08] LABS: Basophils # 0.1 10^3/uL (0.0-0.1); Basophils % 0.8 %; Hematocrit 32.3 % (36-47); Lymphocytes # 1.1 10^3/uL (0.8-4.8); Lymphocytes % 15.9 %; Mean Corpuscular HGB Conc 32.2 g/dL (30-55); Mean Corpuscular Hemoglobin 26.9 pg (27-33); Mean Corpuscular Volume 83.5 fl (85-98); Mean Platelet Volume 10.1 fL (7.4-10.4); Monocytes # 1.1 10^3/uL (0.2-0.9); Monocytes % 16.5 %; Neutrophils % 66.6 %; Nucleated Red Blood Cells % 0 %; Platelet Count 183 10^3/cmm (157-399); Red Blood Count 3.87 10^6/uL (3.85-5.65); Red Cell Distribution Width 14.6 % (12.1-15.1)
[2023-10-10 06:34] LABS: Alanine Aminotransferase 18 U/L (0-33); Albumin Level 3.7 g/dL (3.5-5.2); Alkaline Phosphatase 100 U/L (35-105); Anion Gap 16.6 (5-19); Aspartate Amino Transferase 32 U/L (0-32); Blood Urea Nitrogen 29 mg/dL (8-23); Calcium 9.5 mg/dL (8.5-10.5); Carbon Dioxide 26 mmol/L (22-29); Chloride 97 mmol/L (98-107); Globulin 2.9 g/dL (1.3-4.6); Glucose 100 mg/dL (65-115); Osmolality Calculated 288 mOsm/kg (285-295); Potassium 3.6 mmol/L (3.5-5.1); Sodium 136 mmol/L (136-145); Total Bilirubin 0.3 mg/dL (0.15-1.2); Total Protein 6.6 g/dL (6.6-8.7)
[2023-10-10 07:50] VITALS: BP 118/49; PULSE 80; RESP 16; TEMP 37; O2SAT 92
[2023-10-10] MEDS: FUROsemide 10 mg/mL SDV 4mL 40 MG IVP (08:43)
[2023-10-10] MEDS: cefTRIAXone 1,000 MG in sodium chloride 0.9% (plus) 50 ML 100 MG IV (08:44)
--- NOTE | 2023-10-10 08:51 | PC.CHAP ---
Pastoral Care Encounter/Spiritual Assessment Type of Contact [] Declined clean room assembler visit [] Patient/Family/Request visit [] Outpatient visit [] Follow-up visit [] Physician referral [] Code/Alert [x] Routine visit [] Staff referral [] Actively dying [] Patient sleeping [] Family support [] [] Out of room [] Palliative care [] [] Receiving care in room [] Pre-surgical visit [] Trauma [] Long length of stay [] ICU visit [] Other: Relational/Emotional Strength [] Patient feels connected with others/family/visitors/staff [] Distress [] Loneliness/isolation [] Abandonment Spirituality of Patient [x] Person of Shahida [] Attends Sikh of their Shahida [x] Believes in Prayer [] Reads Bible or Taoist materials [] There are Spiritual issues to be addressed Juvenile Corrections Officer Interventions [x] Prayer [x] Active listening [] Non-anxious presence [x] Spiritual/emotional support [] Crisis/trauma care [] Spiritual counseling [] Bereavement support [] Provided bereavement packet [] Provided Bible/devotional materials [] Provided toy/stuffed animal, coloring book to patient or family member [] Provided Communion [] Anointing/[place] [] Salvation [x] Completed spiritual assessment [] Other: Impact on Illness or Injury [] Angry [] Fearful [] Anxious [] Often cries [] Exhaustion [] Unable to work [] Unable to attend religious [] Unable to walk/stand [] Unable to read [] Unable to drive [] Unable to eat/drink [] Unable to sleep [] Unable to be with family [] Patient intubated [] Other: Summary Time spent with patient 5 min
--- NOTE | 2023-10-10 10:10 | PM.DCS ---
Discharge Providers Date of Admission: 10/09/23 12:15 Date of Discharge: October 10, 2023 Attending Provider at Admission: Jason England MD Attending Provider at Discharge: Jason England MD Primary Care Provider: Stoney Jo Diagnoses at Discharge Discharge Diagnosis (1) CHF exacerbation: Status: Acute (2) Community acquired pneumonia: Status: Acute (3) Aortic stenosis: Status: Acute Qualifiers: Cardiac valve disease etiology: nonrheumatic Qualified Code(s): I35.0 - Nonrheumatic aortic (valve) stenosis Reason for Visit Reason for Visit: sob Hospital Course Hospital Course eJs is an 88-year-old white female who presented to the emergency department with shortness of breath, wheezing, and cough. She has not had any fever. There was concern of right lower lobe infiltrate, as well as heart failure on admission. She has a history of severe aortic stenosis, and has been referred to [place] for possible TAVR. BNP was elevated on admission. She was diuresed with IV Lasix 40 mg IV every 12 hours. She was started on cefdinir and Zithromax. Overnight she did not require any oxygen. By the morning she was feeling much better. She had never run any fevers. White blood cell count was normal. It was thought she could go home on a higher dose of Lasix, keep her appointment in [place], follow-up with her primary care provider in 3 to 5 days with a BMP, and complete a short course of antibiotics. She was given the opportunity to ask questions, and agreed with the plan. Physical Exam Narrative: General exam no distress Neck is supple Cardiovascular regular rate and rhythm with 3/6 systolic murmur Lungs clear Abdomen is soft Extremities no cyanosis clubbing or edema Discharge Data Studies Completed and Pending Completed Studies During Hospitalization Category Date Time Status CTA chest [CT angio chest PE protcl [id number]] Stat Cat Scan 10/09/23 10:41 Completed XR chest 1V portable [id number] Stat Exams 10/09/23 09:56 Completed Pending at discharge Category Date Time Status Blood Cultures ([facility]) Routine Lab 10/09/23 11:10 Received Blood Cultures ([facility]) Routine Lab 10/09/23 11:17 Received COVID OZH [Coronavirus PCR] Routine Lab 10/09/23 14:50 Received Sputum Culture and Gram Stain Routine Lab 10/09/23 19:02 Received Radiology Impressions Chest X-Ray 10/09/23 09:56 IMPRESSION: CHF with possible pulmonary nodules. Chest CT recommended. Laboratory Results WBC 6.60 10^3/uL (3.29-11.43) 10/10/23 05:29 RBC 3.87 10^6/uL (3.85-5.65) 10/10/23 05:29 Hgb 10.40 g/dL (11.27-16.99) L 10/10/23 05:29 Hct 32.3 % (36-47) L 10/10/23 05:29 MCV 83.5 fl (85-98) L 10/10/23 05:29 MCH 26.9 pg (27-33) L 10/10/23 05:29 MCHC 32.2 g/dL (30-55) 10/10/23 05:29 RDW 14.6 % (12.1-15.1) 10/10/23 05:29 Plt Count 183 10^3/cmm (157-399) 10/10/23 05:29 MPV 10.1 fL (7.4-10.4) 10/10/23 05:29 Neut % (Auto) 66.6 % 10/10/23 05:29 Lymph % (Auto) 15.9 % 10/10/23 05:29 [place] % (Auto) 16.5 % 10/10/23 05:29 Eos % (Auto) 0.0 % 10/10/23 05:29 Baso % (Auto) 0.8 % 10/10/23 05:29 Neut # (Auto) 4.40 10^3/uL (1.8-7.7) 10/10/23 05:29 Lymph # (Auto) 1.1 10^3/uL (0.8-4.8) 10/10/23 05:29 [place] # (Auto) 1.1 10^3/uL (0.2-0.9) H 10/10/23 05:29 Eos # (Auto) 0.0 10^3/uL (0.0-0.8) 10/10/23 05:29 Baso # (Auto) 0.1 10^3/uL (0.0-0.1) 10/10/23 05:29 Nucleated RBC % (auto) 0 % 10/10/23 05:29 Nucleated RBCs # 0.0 /100WBC 10/10/23 05:29 Sodium 136 mmol/L (136-145) 10/10/23 05:29 Potassium 3.6 mmol/L (3.5-5.1) 10/10/23 05:29 Chloride 97 mmol/L (98-107) L 10/10/23 05:29 Carbon Dioxide 26 mmol/L (22-29) 10/10/23 05:29 Anion Gap 16.6 (5-19) 10/10/23 05:29 BUN 29 mg/dL (8-23) H 10/10/23 05:29 Creatinine 1.1 mg/dL (0.5-0.9) H 10/10/23 05:29 GFR Calculation Not Reportable 10/10/23 05:29 Glucose 100 mg/dL (65-115) 10/10/23 05:29 Estimat Average Glucose 105 10/09/23 10:12 Hemoglobin A1c 5.3 % (4.0-6.0) 10/09/23 10:12 Calculated Osmolality 288 mOsm/kg (285-295) 10/10/23 05:29 Calcium 9.5 mg/dL (8.5-10.5) 10/10/23 05:29 Magnesium 2.0 mg/dL (1.7-2.3) 10/10/23 05:29 Total Bilirubin 0.3 mg/dL (0.15-1.2) 10/10/23 05:29 AST 32 U/L (0-32) 10/10/23 05:29 ALT 18 U/L (0-33) 10/10/23 05:29 Alkaline Phosphatase 100 U/L (35-105) 10/10/23 05:29 NT-Pro-B Natriuret Pep 5643 pg/mL (0-450) H 10/09/23 10:12 Total Protein 6.6 g/dL (6.6-8.7) 10/10/23 05:29 Albumin 3.7 g/dL (3.5-5.2) 10/10/23 05:29 Globulin 2.9 g/dL (1.3-4.6) 10/10/23 05:29 TSH 4.47 uIU/mL (0.27-4.20) H 10/09/23 10:12 Influenza Type A Ag negative (Negative) 10/09/23 14:50 Influenza Type B Ag negative (Negative) 10/09/23 14:50 Vitals Last Vital Signs Temp 98.6 F 10/10/23 07:50 Pulse 80 10/10/23 07:50 Resp 16 10/10/23 07:50 BP 118/49 10/10/23 07:50 Pulse Ox 92 10/10/23 07:50 O2 Del Method Room Air 10/10/23 07:50 Discharge Plan Discharge Patient Disposition: Home Condition: Stable Prescriptions: New furosemide 40 mg Tablet 40 mg PO DAILY@0800 Qty: 30 0RF azithromycin [Zithromax] 500 mg tablet 500 mg PO DAILY Qty: 1 0RF cefdinir 300 mg capsule 300 mg PO BID 7 Days Qty: 14 0RF Continued potassium chloride 20 mEq tablet extended release 20 meq PO QAM amlodipine [Norvasc] 5 mg tablet 5 mg PO QAM atenolol 100 mg tablet 100 mg PO QPM omeprazole 40 mg capsule,delayed release(DR/EC) 40 mg PO QAM trazodone 150 mg tablet 150 mg PO QPM Discontinued furosemide [Lasix] 20 mg tablet 20 mg PO QAM Discharge Orders: Discharge Order (Routine); Ordered 10/10/23 Ordered By: Jason England Referrals: Stoney Jo [Primary Care Provider] - 4-7 days (BMP on follow-up) Discharge Diet: Cardiac Discharge Activity: Increase activity as tolerated Patient Instructions: Opioid Safety Activity Restrictions/Additional Instructions: Take all medicine as prescribed Follow-up with your primary care provider 3 to 5 days, BMP on follow-up Keep your follow-up already arranged for possible TAVR, October in [place] Return for any concerns Weigh yourself daily, notify primary care provider should weight go up more than 2 pounds 2 days in a row Discharge Attestations Time Spent in Discharge Care*: greater than 30 min Quality Metrics Clinical Quality Measures [ No reported AMI, CVA or VTE this stay] Coding Level of Care Code 58297 Total time (in minutes) for Discharge: 34 Diagnoses CHF exacerbation I50.9 Community acquired pneumonia J18.9 Nonrheumatic aortic valve stenosis I35.0 Cardiac valve disease etiology: nonrheumatic
[2023-10-10 11:38] VITALS: BP 100/59; PULSE 61; RESP 18; TEMP 36.9; O2SAT 94
[2023-10-10 12:31] LABS: Adenovirus Not Detected (NOT DETECT); Chlamydia Pneumoniae Not Detected (NOT DETECT); Coronavirus 229E,HKU1,NL63,OC4 Not Detected (NOT DETECT); Human Metapneumovirus Not Detected (NOT DETECT); Human Rhinovirus/Enterovirus Not Detected (NOT DETECT); Influenza A Not Detected (NOT DETECT); Influenza A H1 Not Detected (NOT DETECT); Influenza A H1-2009 Not Detected (NOT DETECT); Influenza A H3 Not Detected (NOT DETECT); Influenza B Not Detected (NOT DETECT); Mycoplasma Pneumoniae Not Detected (NOT DETECT); Parainfluenza Virus Type 1 Not Detected (NOT DETECT); Parainfluenza Virus Type 2 Not Detected (NOT DETECT); Parainfluenza Virus Type 3 Not Detected (NOT DETECT); Parainfluenza Virus Type 4 Not Detected (NOT DETECT); Respiratory Syncytial Virus A Not Detected (NOT DETECT); Respiratory Syncytial Virus B Not Detected (NOT DETECT)
[2023-10-10 12:36] LABS: SARS-COV-2 Detected (NOT DETECT)
--- NOTE | 2023-10-10 12:40 | PC.NURSE ---
Patient had already been discharged at this time. Lab Called with a critical lab that patient's Covid-19 test came back positive. Called Dr. England notified verbally at this time. Verbal order to notify the patient and to let the patient know that we will continue with the discharge as planned. To take her antibiotic's as ordered. Called patient's home and her daughter that she lives with was notified that her Covid-19 test was positive. Updated daughter updated that patient would be fine to quarantine for 7 to 10 days.
[2023-10-10 13:21] VITALS: BP 100/59; PULSE 61; RESP 18; TEMP 36.9; O2SAT 94
== END 2023-10-10 13:00 | disposition home or self-care (01) ==
LOC: ER 11:13 → MEDSURG 14:09
PROVIDERS: Admitting Provider Internal Medicine; Emergency Provider Emergency Medicine; PCP Family Medicine; Visit Provider Internal Medicine
DX: I50.30 Unspecified diastolic (congestive) heart failure (principal); J18.9 Pneumonia, unspecified organism; I35.0 Nonrheumatic aortic (valve) stenosis; I25.10 Atherosclerotic heart disease of native coronary artery without angina pectoris
CPT/HCPCS: 36415; 71045; 71275; 80053; 83036; 83735; 83880; 84443; 85025; 87040; 87070; 87077; 87186; 87205; 87635; 87804; 93005; 94640; 96365; 96366; 96367; 96372; 96375; 96376; 99285; G0378; J0456; J0696; J1650; J1940; J7050; Q9967

== ENCOUNTER 2023-10-17 08:47 | Emergency (ER) | payer MEDICARE, SELFPAY ==
[2023-10-17] VITALS (7 sets, daily range): BP systolic 125–153; BP diastolic 70–84; PULSE 65–73; RESP 16–29; TEMP 36.5; O2SAT 93–98; BMI 18.1
--- NOTE | 2023-10-17 08:53 | ECG_ITS ---
[facility] Test Date: 2023-10-17 Pat Name: Jes Durbin Department: Room: Gender: Female Recruitment Specialist: : 1935 Requested By: Sung Perez Order Number: [id number] MD: Teja Rdz M.D. Measurements Intervals [place] Rate: 73 P: 76 TX: 167 QRS: 68 QRSD: 127 T: 64 QT: 430 QTc: 477 Interpretive Statements SINUS RHYTHM WITH OCCASIONAL VENTRICULAR PREMATURE COMPLEXES WITH FREQUENT SUPRAVENTRICULAR PREMATURE COMPLEXES LEFT BUNDLE BRANCH BLOCK [120+ ms QRS DURATION, 80+ ms Q/S IN V1/V2, 85+ ms R IN I/aVL/V5/V6] Compared to ECG 10/09/2023 09:53:51 Ventricular premature complex(es) now present Left bundle-branch block now present Sinus arrhythmia no longer present Left ventricular hypertrophy no longer present ST (T wave) deviation no longer present Myocardial infarct finding no longer present Electronically Signed On 10-17-2023 14:55:54 COMMERCIAL INSTRUCTOR SUPERVISOR by Teja Rdz M.D. [email or web address]
--- NOTE | 2023-10-17 08:53 | XRR_ITS ---
PROCEDURE INFORMATION: Exam: XR Chest Exam date and time: 10/17/2023 9:02 AM Age: 88 years old Clinical indication: Dyspnea TECHNIQUE: Imaging protocol: Radiologic exam of the chest. Views: 1 view. COMPARISON: 1. CR XR chest 1V portable [id number] 10/09/2023 10:[address] angio chest PE protcl [id number] 10/09/2023 12:07 PM FINDINGS: Lungs: Lung volumes are large. There is no focal consolidation. There is mild coarse reticular opacity in the lower lungs bilaterally which is markedly decreased since 10/09/2023. There is a 5 mm nodule in the right mid lung. Pleural spaces: The right lateral costophrenic sulcus is blunted. The left lateral costophrenic sulcus is blunted. No pneumothorax. Heart/Mediastinum: The cardiac silhouette is within normal limits of size given AP technique. Bones/joints: Convex right thoracolumbar scoliosis and upper lumbar degenerative disease. There is severe degenerative disease of the right shoulder. There is moderate degenerative disease at the left shoulder. No acute fracture. XR/XR chest 1V portable [id number] IMPRESSION: 1. Decreased bilateral lower lung consolidation since 10/09/2023. 2. Decreased size of bilateral pleural effusions.
--- NOTE | 2023-10-17 09:10 | ED_ITS ---
HPI - SOB/Dyspnea 2 General: Chief Complaint: Shortness of Breath/Dyspnea Stated Complaint: sob Time Seen by Provider: 10/17/23 08:51 History of Present Illness: HPI Narrative: Patient presents to the ER for worsening shortness of breath. Patient says she could not sleep last night because she could not breathe. She has been short of breath since Friday. Patient was in the hospital about a week ago for shortness of breath. He was discharged on 40 Lasix daily azithromycin and cefdinir Review of Systems 2 General: Reports: 10 or more systems reviewed and unremarkable except in HPI and below PFSH ED 2 PFSH: Medical History Coronary artery disease CHF exacerbation Diastolic congestive heart failure Aortic stenosis Surgical History History of coronary angiogram Social History Smoking and tobacco/nicotine status: never used tobacco/nicotine Second hand smoke exposure: No Alcohol intake: never Substance/Drug Use: never Lives independently: Yes Physical Exam 2 Const: COMMON NORMALS: no acute distress, average body habitus, patient oriented x3, no limitations, healthy appearing, alert and well nourished HENMT: COMMON NORMALS: normocephalic, atraumatic, hearing grossly normal bilaterally, external ears normal, Normal external nose present, moist oral mucous membranes and oropharynx normal HEAD & SCALP: normocephalic and atraumatic NOSE: Normal external nose present EXTERNAL EAR: Yes external ears normal Eye: COMMON NORMALS: Equal, round and reactive pupils present, EOMs intact bilaterally, conjunctivae normal and no scleral icterus CONJUNCTIVA: Yes conjunctivae normal PUPIL: Yes Equal, round and reactive pupils present Neck/C-Spine: COMMON NORMALS: full ROM, no lymphadenopathy, supple, no meningeal signs, no JVD and Thyroid normal THYROID: Thyroid normal Chest: COMMONS NORMALS: normal inspection of the chest and normal palpation of entire chest wall Resp: COMMON NORMALS: normal respiratory effort, No retractions, No use of accessory muscles and clear to auscultation bilaterally AUSCULTATION: clear to auscultation bilaterally Cardio: COMMON NORMALS: no JVD, regular rate, regular rhythm, S1 normal heart sound present, S2 normal heart sound present, No gallops present (Cardio), No clicks present (Cardio), No murmurs present (Cardio) and No rub (Cardio) R ATE: regular rate RHYTHM: regular rhythm HEART SOUNDS: S1 normal heart sound present and S2 normal heart sound present GI: COMMON NORMALS: Normal to inspection, nondistended, normoactive bowel sounds present, Soft to palpation, non-tender, No hepatosplenomegaly present and no masses PALPATION: Yes Soft to palpation and Yes No hepatosplenomegaly present Neuro: COMMON NORMALS: patient oriented x3 SENSORIUM/ORIENTATION: Yes alert MENINGEAL SIGNS: Yes no meningeal signs Course 2 Vital Signs: Vital signs: Vital Signs Temperature 97.7 F 10/17/23 08:54 Pulse Rate 71 10/17/23 12:00 Respiratory Rate 22 H 10/17/23 12:00 Blood Pressure 125/70 10/17/23 11:54 Pulse Oximetry 94 10/17/23 12:00 Oxygen Delivery Me thod Room Air 10/17/23 12:00 MDM - SOB/Dyspnea Medical Decision Making Patient presented to the ER with shortness of breath. Last hospitalization was reviewed. Chest x-ray was performed which was improved. As well as blood work. Patient maintain her oxygen saturation of 94 to 98% on room air. These findings was discussed with the patient and her family. Come to find out patient needs a heart valve that she is already set up for in [place]. This is probably the likely cause of her worsening shortness of breath when she is lying flat sleeping. Patient be discharged to follow-up with her cardiothoracic surgeon as previously scheduled to get this valve. Patient to follow-up with her PCP in the meantime. Differential Diagnosis Unlikely acute exacerbation of chronic obstructive airways disease, congestive heart failure, community acquired pneumonia, asthma with exacerbation or pulmonary embolism Medical Records I reviewed the patient's medical records. Lab Data I reviewed the patient's lab results. 10/17/23 09:12 10/17/23 09:12 Labs/Radiology: Radiology Impressions Chest X-Ray 10/17/23 08:53 IMPRESSION: 1. Decreased bilateral lower lung consolidation since 10/09/2023. 2. Decreased size of bilateral pleural effusions. Laboratory Results WBC 5.25 10^3/uL (3.29-11.43) 10/17/23 09:12 RBC 4.64 10^6/uL (3.85-5.65) 10/17/23 09:12 Hgb 12.30 g/dL (11.27-16.99) 10/17/23 09:12 Hct 39.1 % (36-47) 10/17/23 09:12 MCV 84.3 fl (85-98) L 10/17/23 09:12 MCH 26.5 pg (27-33) L 10/17/23 09:12 MCHC 31.5 g/dL (30-55) 10/17/23 09:12 RDW 14.2 % (12.1-15.1) 10/17/23 09:12 Plt Count 228 10^3/cmm (157-399) 10/17/23 09:12 MPV 9.9 fL (7.4-10.4) 10/17/23 09:12 Neut % (Auto) 63.8 % 10/17/23 09:12 Lymph % (Auto) 23.8 % 10/17/23 09:12 [place] % (Auto) 10.5 % 10/17/23 09:12 Eos % (Auto) 1.1 % 10/17/23 09:12 Baso % (Auto) 0.6 % 10/17/23 09:12 Neut # (Auto) 3.35 10^3/uL (1.8-7.7) 10/17/23 09:12 Lymph # (Auto) 1.3 10^3/uL (0.8-4.8) 10/17/23 09:12 [place] # (Auto) 0.6 10^3/uL (0.2-0.9) 10/17/23 09:12 Eos # (Auto) 0.1 10^3/uL (0.0-0.8) 10/17/23 09:12 Baso # (Auto) 0.0 10^3/uL (0.0-0.1) 10/17/23 09:12 Nucleated RBC % (auto) 0 % 10/17/23 09:12 Nucleated RBCs # 0.0 /100WBC 10/17/23 09:12 Sodium 136 mmol/L (136-145) 10/17/23 09:12 Potassium 4.2 mmol/L (3.5-5.1) 10/17/23 09:12 Chloride 98 mmol/L (98-107) 10/17/23 09:12 Carbon Dioxide 22 mmol/L (22-29) 10/17/23 09:12 Anion Gap 20.2 (5-19) H 10/17/23 09:12 BUN 17 mg/dL (8-23) 10/17/23 09:12 Creatinine 0.9 mg/dL (0.5-0.9) 10/17/23 09:12 GFR Calculation Not Reportable 10/17/23 09:12 Glucose 99 mg/dL (65-115) 10/17/23 09:12 Calculated Osmolality 284 mOsm/kg (285-295) L 10/17/23 09:12 Calcium 10.3 mg/dL (8.5-10.5) 10/17/23 09:12 Magnesium 2.0 mg/dL (1.7-2.3) 10/17/23 09:12 Total Bilirubin 0.4 mg/dL (0.15-1.2) 10/17/23 09:12 AST 23 U/L (0-32) 10/17/23 09:12 ALT 14 U/L (0-33) 10/17/23 09:12 Alkaline Phosphatase 120 U/L (35-105) H 10/17/23 09:12 Troponin T Baseline 21 ng/L (0-10) H 10/17/23 09:12 Troponin T 120 Minute 20.83 ng/L (0-10) H 10/17/23 11:12 Delta Troponin T -0.17 ABS# (0-10) L 10/17/23 11:12 NT-Pro-B Natriuret Pep 2702 pg/mL (0-450) H 10/17/23 09:12 Total Protein 8.0 g/dL (6.6-8.7) 10/17/23 09:12 Albumin 4.7 g/dL (3.5-5.2) 10/17/23 09:12 Globulin 3.3 g/dL (1.3-4.6) 10/17/23 09:12 All radiology interpretation(s) finalized by discharge EKG Data EKG 1: I personally reviewed and interpreted this EKG as follows: EKG Interpretation Date: 10/17/23 EKG interpretation time: 09:00 Prior EKG tracings: not available for review Interpretation: EKG showed ventricular rate 73 bpm, OH interval 167, QRS duration 127, QTc of 456, sinus rhythm with occasional PVC, left bundle branch block, EKG 2: I personally reviewed and interpreted this EKG as follows: EKG Interpretation Date: 10/17/23 EKG interpretation time: 10:37 Prior EKG tracings: available for review Interpretation: EKG showed ventricular rate 71 beats minute, OH interval 170, QRS duration 123, QTc of 490, sinus rhythm with occasional PVC, left ventricular operatively Discharge Plan Discharge Patient Disposition: Home Clinical Impression: Shortness of breath, Valvular heart disease Condition: Stable Prescriptions: No Action potassium chloride 20 mEq tablet extended release 20 meq PO QAM amlodipine [Norvasc] 5 mg tablet 5 mg PO QAM atenolol 100 mg tablet 100 mg PO QPM omeprazole 40 mg capsule,delayed release(DR/EC) 40 mg PO QAM trazodone 150 mg tablet 150 mg PO QPM furosemide 40 mg Tablet 40 mg PO DAILY@0800 Qty: 30 0RF albuterol sulfate [ProAir HFA] 90 mcg/actuation HFA aerosol inhaler 1 inh inhalation Q6H PRN (Reason: shortness of breath or wheezing) Qty: 8.5 0RF levofloxacin 750 mg tablet 750 mg PO DAILY 10 Days Qty: 10 0RF cefdinir 300 mg capsule 300 mg PO BID Discharge Orders: Discharge ED (Routine); Ordered 10/17/23 Ordered By: Sung Perez Referrals: Stoney Jo [Primary Care Provider] - 7-10 days Patient Instructions: Shortness of Breath (ED) Activity Restrictions/Additional Instructions: Please keep your appointment already scheduled with your cardiothoracic surgeon for your valve replacement. Please follow-up with your family practice physician in the meantime within 7 to 10 days for further evaluation and treatment. Coding Level of Care Code ED Chief Meter Reader for Zully Beard
[2023-10-17 09:27] LABS: Basophils % 0.6 %; Eosinophils # 0.1 10^3/uL (0.0-0.8); Eosinophils % 1.1 %; Hematocrit 39.1 % (36-47); Lymphocytes # 1.3 10^3/uL (0.8-4.8); Lymphocytes % 23.8 %; Mean Corpuscular HGB Conc 31.5 g/dL (30-55); Mean Corpuscular Hemoglobin 26.5 pg (27-33); Mean Corpuscular Volume 84.3 fl (85-98); Mean Platelet Volume 9.9 fL (7.4-10.4); Monocytes # 0.6 10^3/uL (0.2-0.9); Monocytes % 10.5 %; Neutrophils # 3.35 10^3/uL (1.8-7.7); Neutrophils % 63.8 %; Nucleated Red Blood Cells % 0 %; Platelet Count 228 10^3/cmm (157-399); Red Blood Count 4.64 10^6/uL (3.85-5.65); Red Cell Distribution Width 14.2 % (12.1-15.1); White Blood Count 5.25 10^3/uL (3.29-11.43)
[2023-10-17 09:46] LABS: Troponin(5th) Baseline 21 ng/L (0-10)
[2023-10-17 10:01] LABS: Alanine Aminotransferase 14 U/L (0-33); Albumin Level 4.7 g/dL (3.5-5.2); Alkaline Phosphatase 120 U/L (35-105); Anion Gap 20.2 (5-19); Aspartate Amino Transferase 23 U/L (0-32); Blood Urea Nitrogen 17 mg/dL (8-23); Calcium 10.3 mg/dL (8.5-10.5); Carbon Dioxide 22 mmol/L (22-29); Chloride 98 mmol/L (98-107); Globulin 3.3 g/dL (1.3-4.6); Glucose 99 mg/dL (65-115); NT Pro B Type Natriuretic Pept 2702 pg/mL (0-450); Osmolality Calculated 284 mOsm/kg (285-295); Potassium 4.2 mmol/L (3.5-5.1); Sodium 136 mmol/L (136-145); Total Bilirubin 0.4 mg/dL (0.15-1.2)
--- NOTE | 2023-10-17 10:53 | ECG_ITS ---
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 Measurements Intervals [place] Rate: 71 P: 89 [place]: 170 QRS: 66 QRSD: 123 T: 69 QT: 468 QTc: 509 Interpretive Statements SINUS RHYTHM WITH FREQUENT SUPRAVENTRICULAR PREMATURE COMPLEXES LEFT VENTRICULAR HYPERTROPHY AND ST-T CHANGE [VOLTAGE CRITERIA PLUS ST/T ABNORMALITY] Compared to ECG 10/17/2023 09:00:56 Left ventricular hypertrophy now present ST (T wave) deviation now present Ventricular premature complex(es) no longer present Left bundle-branch block no longer present Electronically Signed On 10-17-2023 15:40:17 DIRECTOR OF REAL ESTATE by Teja Rdz M.D. [email or web address]'s daughters medical centerAscendant Dxcleveland clinic south pointe hospital.Sr.[place]/store/OM/[id number]/[id number]
[2023-10-17 11:39] LABS: Troponin 5 2HR 20.83 ng/L (0-10)
[2023-10-17 11:40] LABS: Troponin 5 2HR Delta -0.17 ABS# (0-10)
== END 2023-10-17 13:04 | disposition home or self-care (01) ==
PROVIDERS: Emergency Provider Emergency Medicine; PCP Family Medicine
DX: R06.02 Shortness of breath (principal); I38 Endocarditis, valve unspecified; I25.10 Atherosclerotic heart disease of native coronary artery without angina pectoris; I50.30 Unspecified diastolic (congestive) heart failure
CPT/HCPCS: 36415; 71045; 80053; 83735; 83880; 84484; 85025; 93005; 99285

== ENCOUNTER 2023-12-01 09:45 | Inpatient (IN) | payer MEDICARE, SELFPAY ==
[2023-12-01] VITALS (19 sets, daily range): BP systolic 108–161; BP diastolic 56–90; PULSE 64–136; RESP 15–22; TEMP 36.4–36.6; O2SAT 92–98; BMI 18.1
--- NOTE | 2023-12-01 10:11 | XR_ITS ---
WS: [id number] PORTABLE CHEST HISTORY: dyspnea/cough COMPARISON: 10/17/2023, 10/09/2023 Hyperinflated lungs. Reaccumulation of small bilateral pleural effusions and hazy opacifications at t he lung bases since 10/17/2023. Slightly greater consolidation at the RIGHT lung base. Chronic emphys sadaf and mild pulmonary edema. No pneumothorax. Cardiac size: Cardiac silhouette is slightly increased in size since the prior study. In particular t he atria are enlarged. 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 This is new since 10/17/2023. Diffuse osteopenia. Degenerative changes at the glenohumeral joint RIGHT shoulder. IMPRESSION: 1. Reaccumulation of small bilateral pleural effusions since 10/17/2023. The effusions had slightly improved on the prior examination as compared to 10/09/2023. 2. Most dense consolidation at the RIGHT lung base. 3. Mild pulmonary edema. 4. Interval placement of aortic valve graft since the prior study.
--- NOTE | 2023-12-01 10:11 | ED_ITS ---
HPI - SOB/Dyspnea 2 General: Chief Complaint: Shortness of Breath/Dyspnea Stated Complaint: regained fluid since aortic valve replacement Time Seen by Provider: 12/01/23 10:09 Source: patient Mode of arrival: ambulatory History of Present Illness: HPI Narrative: 88-year-old female recently underwent TA VR. Post procedure she was on Lasix 40 mg daily for approximately 5 days then shifted to 20 mg daily she seen her primary lace machine operator last week she seemed to be a little bit more fluid overloaded and they had her increase her Lasix back to 40 a day for a few days and resume 20 mg daily today which she did take. States she has had a increased fluid replacement some increased swelling in her legs slight weight gain of about 3 to 4 pounds which is fluctuated slightly since her procedure. She has noticed increasing orthopnea but denies any chest pain on arrival here she is in atrial fibrillation when she does not recall being told that she had in the past. MD elicited complaint: shortness of breath and cough Pertinent past history: congestive heart failure Onset (ago): day(s) Timing: constant Exacerbating factors: lying flat, exertion and coughing Relieving factors: upright position and medication (Lasix) Known history of: congestive heart failure Associated symptoms: Reports chest congestion, cough and orthopnea; Deny abdominal pain, chest pain, diaphoresis, dizziness, extremity pain, fever(s), hemoptysis, lightheadedness, myalgias, nausea, palpitations, paresthesias, polydipsia, polyuria, rash, sense of impending doom, syncope or vomiting Treatment prior to arrival: none Review of Systems 2 Const: Denies: fever(s), chills or diaphoresis Card: Reports: orthopnea; Denies: chest pain, palpitations, lightheadedness or syncope Resp: Reports: chest congestion; Denies: dyspnea or hemoptysis GI: Denies: abdominal pain, nausea or vomiting : Denies: dysuria, urinary frequency or urinary urgency Musc: Denies: neck pain, back pain or extremity pain Skin/Breast: Denies: rash Neuro: Denies: dizziness Endo: Denies: polyuria or polydipsia PFSH ED 2 PFSH: Medical History Coronary artery disease CHF exacerbation Diastolic congestive heart failure Aortic stenosis Surgical History History of coronary angiogram Social History Smoking and tobacco/nicotine status: never used tobacco/nicotine Second hand smoke exposure: No Alcohol intake: never Substance/Drug Use: never Lives independently: Yes Physical Exam 2 Const: GENERAL APPEARANCE: cooperative and comfortable O RIENTATION/CONSCIOUSNESS: Yes awake, Yes oriented to person, Yes oriented to place and Yes oriented to time HENMT: COMMON NORMALS: normocephalic, atraumatic and hearing grossly normal bilaterally HEAD & SCALP: normocephalic and atraumatic Resp: COMMON NORMALS: normal respiratory effort, No retractions and No use of accessory muscles AUSCULTATION: crackles Cardio: COMMON NORMALS: No murmurs present (Cardio) RATE: tachycardic R HYTHM: abnormal rhythm irregularly irregular GI: COMMON NORMALS: Soft to palpation and No hepatosplenomegaly present A USCULTATION: Yes normoactive bowel sounds PALPATION: Yes Soft to palpation, No Tenderness to palpation present (GI), No Guarding due to palpation present (GI) and Yes No hepatosplenomegaly present Extremity: COMMON NORMALS: normal to inspection, capillary refill normal, no clubbing, cyanosis or edema, no calf tenderness and no pedal edema Neuro: SENSORIUM/ORIENTATION: Yes oriented to person, Yes oriented to place and Yes oriented to time Skin: COMMON NORMALS: no rashes or lesions noted GENERAL SKIN EXAM: no rashes or lesions noted Course 2 Vital Signs: Vital signs: Vital Signs Temperature 97.6 F 12/01/23 09:52 Pulse Rate 99 12/01/23 12:55 Respiratory Rate 21 H 12/01/23 12:55 Blood Pressure 135/82 12/01/23 12:55 Pulse Oximetry 94 12/01/23 12:55 Oxygen Delivery Me thod Room Air 12/01/23 09:52 MDM - SOB/Dyspnea Medical Decision Making Mild exacerbation congestive heart failure patient also having atrial fibrillation. Is not noted in her chart. Family is aware that she has had in the past she tells me she was seen at [facility] there they recommend an anticoagulant and increase her metoprolol. Her lace machine operator decreased the metoprolol told her not to take the anticoagulant while she was on the higher dose she had heart rates dipping into the 40s at times. Initially after he presented here what rest her heart rate is tolerable in the 90s in the low 100s less than 110 most of the time however when she gets up to use the bedside commode her heart rate goes up into the 140s and 150s. She did had some improvement in her symptoms with diuresis but they are still present. Discussed the hospitalist will admit for diuresis further evaluation rate control. We did start her on Cardizem IV push and a drip. Medical Records I reviewed the patient's medical records. Lab Data I reviewed the patient's lab results. 12/01/23 10:13 12/01/23 10:13 Labs/Radiology: Laboratory Results WBC 7.34 10^3/uL (3.29-11.43) 12/01/23 10:13 RBC 4.07 10^6/uL (3.85-5.65) 12/01/23 10:13 Hgb 10.50 g/dL (11.27-16.99) L 12/01/23 10:13 Hct 34.2 % (36-47) L 12/01/23 10:13 MCV 84.0 fl (85-98) L 12/01/23 10:13 MCH 25.8 pg (27-33) L 12/01/23 10:13 MCHC 30.7 g/dL (30-55) 12/01/23 10:13 RDW 14.5 % (12.1-15.1) 12/01/23 10:13 Plt Count 303 10^3/cmm (157-399) 12/01/23 10:13 MPV 9.3 fL (7.4-10.4) 12/01/23 10:13 Neut % (Auto) 73.2 % 12/01/23 10:13 Lymph % (Auto) 15.5 % 12/01/23 10:13 [place] % (Auto) 9.4 % 12/01/23 10:13 Eos % (Auto) 0.8 % 12/01/23 10:13 Baso % (Auto) 0.7 % 12/01/23 10:13 Neut # (Auto) 5.37 10^3/uL (1.8-7.7) 12/01/23 10:13 Lymph # (Auto) 1.1 10^3/uL (0.8-4.8) 12/01/23 10:13 [place] # (Auto) 0.7 10^3/uL (0.2-0.9) 12/01/23 10:13 Eos # (Auto) 0.1 10^3/uL (0.0-0.8) 12/01/23 10:13 Baso # (Auto) 0.1 10^3/uL (0.0-0.1) 12/01/23 10:13 Nucleated RBC % (auto) 0 % 12/01/23 10:13 Nucleated RBCs # 0.0 /100WBC 12/01/23 10:13 Sodium 133 mmol/L (136-145) L 12/01/23 10:13 Potassium 4.0 mmol/L (3.5-5.1) 12/01/23 10:13 Chloride 96 mmol/L (98-107) L 12/01/23 10:13 Carbon Dioxide 25 mmol/L (22-29) 12/01/23 10:13 Anion Gap 16.0 (5-19) 12/01/23 10:13 BUN 19 mg/dL (8-23) 12/01/23 10:13 Creatinine 0.8 mg/dL (0.5-0.9) 12/01/23 10:13 GFR Calculation Not Reportable 12/01/23 10:13 Glucose 113 mg/dL (65-115) 12/01/23 10:13 Calculated Osmolality 279 mOsm/kg (285-295) L 12/01/23 10:13 Calcium 9.4 mg/dL (8.5-10.5) 12/01/23 10:13 Total Bilirubin 0.2 mg/dL (0.15-1.2) 12/01/23 10:13 AST 53 U/L (0-32) H 12/01/23 10:13 ALT 43 U/L (0-33) H 12/01/23 10:13 Alkaline Phosphatase 143 U/L (35-105) H 12/01/23 10:13 Troponin T Baseline 41 ng/L (0-10) H 12/01/23 10:13 Troponin T 120 Minute 43.06 ng/L (0-10) H 12/01/23 12:22 Delta Troponin T 2.06 ABS# (0-10) 12/01/23 12:22 NT-Pro-B Natriuret Pep 8609 pg/mL (0-450) H 12/01/23 10:13 Total Protein 7.6 g/dL (6.6-8.7) 12/01/23 10:13 Albumin 3.9 g/dL (3.5-5.2) 12/01/23 10:13 Globulin 3.7 g/dL (1.3-4.6) 12/01/23 10:13 All radiology interpretation(s) finalized by discharge Discharge Plan Discharge Patient Disposition: Admitted As Inpatient Admit Provider: Sebastian Fischer Clinical Impression: Diastolic congestive heart failure, Atrial fibrillation with RVR Aortic stenosis Qualifiers: Cardiac valve disease etiology: nonrheumatic Qualified Code(s): I35.0 - Nonrheumatic aortic (valve) stenosis Condition: Stable Coding Level of Care Code ED Director Of Aviation for Zully Beard
--- NOTE | 2023-12-01 10:11 | ECG_ITS ---
[facility] Test Date: 2023-12-01 Pat Name: Jes Durbin Department: Room: Gender: Female Senior Dentist: : 1935 Requested By: Benji Bui Order Number: [id number] MD: Nikita Jeffries M.D. Measurements Intervals [place] Rate: 111 P: 0 [place]: 0 QRS: 76 QRSD: 121 T: 88 QT: 349 QTc: 476 Interpretive Statements ATRIAL FIBRILLATION WITH RAPID VENTRICULAR RESPONSE ANTEROSEPTAL MYOCARDIAL INFARCTION , OF INDETERMINATE AGE [40+ ms Q WAVE IN V1-V4] Compared to ECG 10/17/2023 10:37:43 Myocardial infarct finding now present Sinus rhythm no longer present Left ventricular hypertrophy no longer present ST (T wave) deviation no longer present Electronically Signed On 12-01-2023 14:18:54 GROOVING LATHE TENDER by Nikita Jeffries M.D. [email or web address] coast veterans health care systemGoalShare.commercy [facility].KrowdPad/store/NU/[id number] f
[2023-12-01 10:19] LABS: Basophils # 0.1 10^3/uL (0.0-0.1); Basophils % 0.7 %; Eosinophils # 0.1 10^3/uL (0.0-0.8); Eosinophils % 0.8 %; Hematocrit 34.2 % (36-47); Lymphocytes # 1.1 10^3/uL (0.8-4.8); Lymphocytes % 15.5 %; Mean Corpuscular HGB Conc 30.7 g/dL (30-55); Mean Corpuscular Hemoglobin 25.8 pg (27-33); Mean Platelet Volume 9.3 fL (7.4-10.4); Monocytes # 0.7 10^3/uL (0.2-0.9); Monocytes % 9.4 %; Neutrophils # 5.37 10^3/uL (1.8-7.7); Neutrophils % 73.2 %; Nucleated Red Blood Cells % 0 %; Platelet Count 303 10^3/cmm (157-399); Red Blood Count 4.07 10^6/uL (3.85-5.65); Red Cell Distribution Width 14.5 % (12.1-15.1); White Blood Count 7.34 10^3/uL (3.29-11.43)
[2023-12-01 10:38] LABS: Troponin(5th) Baseline 41 ng/L (0-10)
[2023-12-01] MEDS: FUROsemide 10 mg/mL SDV 10mL 60 MG IVP (10:46)
[2023-12-01 10:47] LABS: Alanine Aminotransferase 43 U/L (0-33); Albumin Level 3.9 g/dL (3.5-5.2); Alkaline Phosphatase 143 U/L (35-105); Aspartate Amino Transferase 53 U/L (0-32); Blood Urea Nitrogen 19 mg/dL (8-23); Calcium 9.4 mg/dL (8.5-10.5); Carbon Dioxide 25 mmol/L (22-29); Chloride 96 mmol/L (98-107); Globulin 3.7 g/dL (1.3-4.6); Glucose 113 mg/dL (65-115); NT Pro B Type Natriuretic Pept 8609 pg/mL (0-450); Osmolality Calculated 279 mOsm/kg (285-295); Sodium 133 mmol/L (136-145); Total Bilirubin 0.2 mg/dL (0.15-1.2); Total Protein 7.6 g/dL (6.6-8.7)
--- NOTE | 2023-12-01 10:55 | PC.PHAR ---
PT TAKEN OFF OF AMLODIPINE 5MG AND ATENOLOL 100MG. REPLACED WITH LOSARTAN 25 MG WHICH HAS ALREADY BEEN INCREASED TO 50 MG TWICE DAILY AND METOPROLOL SUCC. ER 25MG DAILY.
--- NOTE | 2023-12-01 12:01 | ECG_ITS ---
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 Measurements Intervals [place] Rate: 113 P: 0 [place]: 0 QRS: 80 QRSD: 115 T: 89 QT: 345 QTc: 475 Interpretive Statements ATRIAL FIBRILLATION WITH RAPID VENTRICULAR RESPONSE ANTEROSEPTAL MYOCARDIAL INFARCTION , OF INDETERMINATE AGE [40+ ms Q WAVE IN V1-V4] Compared to ECG 12/01/2023 10:03:51 No significant changes Electronically Signed On 12-01-2023 14:20:54 INVESTMENT OFFICER by Nikita Jeffries M.D. [email or web address] promise [facility] v[facility]Contextbrokerprotestant hospital.[employer]/store/OM/[id number]
[2023-12-01] MEDS: metoprolol tartrate 25 mg Tablet 12.5 MG PO (12:40)
--- NOTE | 2023-12-01 12:47 | ECG_ITS ---
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 Measurements Intervals [place] Rate: 113 P: 0 [place]: 0 QRS: 70 QRSD: 117 T: 88 QT: 359 QTc: 493 Interpretive Statements ATRIAL FIBRILLATION WITH RAPID VENTRICULAR RESPONSE POSSIBLE ANTERIOR MYOCARDIAL INFARCTION , OF INDETERMINATE AGE [30 ms Q WAVE IN V3/V4, OR R < 0.2 mV IN V4] Compared to ECG 12/01/2023 12:01:36 No significant changes Electronically Signed On 12-01-2023 14:21:04 DRAWBRIDGE TENDER by Nikita Jeffries M.D. [email or web address].LabMindsServerPilotkettering health – soin medical center.[employer]/store/[id number]
[2023-12-01 13:02] LABS: Troponin 5 2HR 43.06 ng/L (0-10); Troponin 5 2HR Delta 2.06 ABS# (0-10)
[2023-12-01] MEDS: dilTIAZem 5 mg/mL SDV 5 mL 20 MG IVP (13:06)
--- NOTE | 2023-12-01 14:27 | USR_ITS ---
PROCEDURE INFORMATION: Exam: US Duplex Lower Extremity Veins, Bilateral Exam date and time: 12/01/2023 5:00 PM Age: 88 years old Clinical indication: Other: SOB TECHNIQUE: Imaging protocol: Real-time duplex ultrasound of the bilateral extremities with 2-D mcpherson scale, color Doppler flow and spectral waveform analysis including responses to compression and other maneuvers (when performed) with image documentation. Complete exam focused on the lower extremity veins. COMPARISON: No relevant prior studies available. FINDINGS: Right deep veins: The common femoral, femoral, proximal profunda femoral and popliteal veins are patent without evidence of thrombus and demonstrate normal waveforms. Left deep veins: The common femoral, femoral, proximal profunda femoral and popliteal veins are patent without evidence of thrombus and demonstrate normal waveforms. Superficial veins: Bilateral saphenofemoral junctions are patent without thrombus. No evidence of thrombophlebitis. Soft tissues: Sonographically unremarkable. US/CV venous duplex [facility] [id number] IMPRESSION: 1. No sonographic evidence of deep venous thrombosis in either lower extremity.
--- NOTE | 2023-12-01 14:27 | USCV_ITS ---
Jes Durbin Age: 88 Gender: F : 1935 Exam Date: 12/01/2023 19:54 Ordering Phys: Sebastian Fischer MD Technologist: [place] [facility] [place]: [place] s/p recent TAVR. BP: 138 / 66 HR: 90 Rhythm: Atrial fibrillation Technical Quality: Adequate MEASUREMENTS (Male / Female) Normal Values 2D ECHO LV Diastolic Diameter PLAX 3.6 cm 4.2 - 5.9 / 3.9 - 5.3 cm LV Systolic Diameter PLAX 2.5 cm IVS Diastolic Thickness 1.4 cm 0.6 - 1.0 / 0.6 - 0.9 cm IVS Systolic Thickness 1.5 cm LVPW Diastolic Thickness 0.7 cm 0.6 - 1.0 / 0.6 - 0.9 cm LVPW Systolic Thickness 0.8 cm LVOT Diameter 1.5 cm LV Ejection Fraction 2D Teich 58.4 % LV Ejection Fraction MOD 2C 66.4 % LV Ejection Fraction 2C AL 67.8 % LA Diameter 5.0 cm LA Width 5.8 cm LA Height 5.3 cm RA Width 3.3 cm RA Height 4.5 cm Aorta at Sinotubular Diameter 3.0 cm IVC Diameter 1.9 cm M-MODE Aortic Annulus Diameter 1.6 cm LA Ao Ratio MM 3.1 MV E Point Septal Separation 0.2 cm DOPPLER AV Peak Velocity 163.0 cm/s LVOT Peak Velocity 92.0 cm/s AV Area Cont Eq vti 1.0 cm squared AV Area Cont Eq pk 1.0 cm squared MV Peak Velocity 202.0 cm/s MV Area PHT 2.2 cm squared MV E' Velocity 101.0 cm/s Mitral E to MV E' Ratio 19.7 Mitral E to LV E' Lateral Ratio 17.1 Mitral E to LV E' Septal Ratio 23.3 TR Peak Velocity 373.0 cm/s TR Peak Gradient 55.7 mmHg TV Peak E Velocity 56.0 cm/s Right Atrial Pressure 10.0 mmHg Pulmonary Artery Systolic Pressu 65.7 mmHg PV Peak Velocity 91.0 cm/s RV Acceleration Time 0.1 s RV Ejection Time 0.3 s RV AcT/ET 0.4 FINDINGS Left Ventricle Left ventricle is normal size. LV systolic function is normal with EF of 55 to 60%. No regional wall motion normalities are seen. Right Ventricle Normal in size and function Right Atrium Normal in size Left Atrium Dilated. Mitral Valve Moderate mitral annular calcification. Mild to moderate mitral regurgitation. Moderate mitral stenosis. Mean gradient of 7 mmHg. Aortic Valve Bioprosthetic aortic valve. Mild to moderate aortic regurgitation. No significant stenosis. DVI is 0.59. Mean gradient of 5 mmHg. Tricuspid Valve Mild tricuspid regurgitation. RVSP is more than 60 mmHg. This is consistent with severe pulm hypertension. Pulmonic Valve Not well-visualized Pericardium Pleural effusion is seen. Trivial pericardial effusion. Aorta Normal in size. IVC Appears to be normal. CONCLUSIONS LV systolic function is normal with EF 55 to 60%. Left ventricle is severely dilated. Pleural effusion is seen. Trivial pericardial effusion Bioprosthetic aortic valve is seen. Mild to moderate aortic regurgitation. No significant stenosis. Mild to moderate mitral regurgitation. Moderate mitral stenosis. Mild tricuspid regurgitation. Severe pulmonary hypertension Compared to prior echocardiogram from 2022,patient now has bioprosthetic aortic valve. Teja Rdz MD (Electronically Signed) Final Date: 02 December 2023 11:02 S
--- NOTE | 2023-12-01 14:28 | PM.HP ---
Providers/Chief Complaint Admitting Physician: Sebastian Fischer MD Primary Care Provider: Stoney Jo Chief Complaint: regained fluid since aortic valve replacement History of Present Illness Jes Durbin is a 88 year old female with a past medical history of History of TAVR, on November 19, 2023, for aortic stenosis, who presents to [facility] for shortness of breath. Patient tells me that since her aortic valve surgery, on the for about 4 days she felt significantly better, but after, she felt increasingly short of breath, short of breath with exertion with orthopnea paroxysmal nocturnal dyspnea, she tells me that they had her on a tapering dose of Lasix, she feels that she was taking too quickly off Lasix, she has gained about 4 pounds in the last few weeks, she was also found to have A-fib with RVR in the emergency room, she tells me that her special investigation unit investigator in [place] due to elevated heart rate had increased her metoprolol to 50 mg daily, however due to issues with bradycardia, her special investigation unit investigator in [place] wanted her to continue 25 mg once daily currently she is in A-fib, heart rates in the 60s, room air normotensive, alert oriented x 3, following all commands, denies being on blood thinners she was told that the special investigation unit investigator in [place] did not want her to be on any blood thinners Review of Systems Const: Denies: fever(s) Card: Reports: palpitations, dyspnea on exertion and orthopnea; Denies: chest pain Resp: Reports: dyspnea : Denies: flank pain Medications/Allergies Home Medications Medication Instructions Recorded Confirmed Last Taken Type omeprazole 40 mg capsule,delayed 40 mg PO QAM 08/21/23 12/01/23 12/01/23 History release potassium chloride 20 mEq 20 meq PO QAM 08/21/23 12/01/23 12/01/23 History tablet,extended release trazodone 150 mg tablet 150 mg PO QPM 08/21/23 12/01/23 11/30/23 History albuterol sulfate 90 mcg/actuation 1 inh inhalation Q6H PRN shortness 10/10/23 12/01/23 Unknown Rx aerosol inhaler (ProAir HFA) of breath or wheezing #8.5 grams furosemide 40 mg tablet 40 mg PO DAILY@0800 #30 tabs 10/10/23 12/01/23 12/01/23 Rx aspirin 81 mg tablet,delayed 81 mg PO DAILY 12/01/23 12/01/23 12/01/23 History release losartan 25 mg tablet 50 mg PO BID 12/01/23 12/01/23 12/01/23 History metoprolol succinate 25 mg 25 mg PO DAILY 12/01/23 12/01/23 12/01/23 History tablet,extended release 24 hr Allergies Allergy/AdvReac Type Severity Reaction Status Date / Time Penicillins Allergy Unknown Unknown Verified 12/01/23 09:48 PFSH Acute PFSH: Medical History Coronary artery disease CHF exacerbation Diastolic congestive heart failure Aortic stenosis Surgical History History of coronary angiogram Social History Smoking and tobacco/nicotine status: never used tobacco/nicotine Second hand smoke exposure: No Alcohol intake: never Substance/Drug Use: never Lives independently: Yes Vitals/I&O/Wt Last Vital Signs Temp 97.6 F 12/01/23 09:52 Pulse 71 12/01/23 13:49 Resp 15 12/01/23 13:49 BP 127/63 12/01/23 13:49 Pulse Ox 94 12/01/23 13:49 O2 Del Method Room Air 12/01/23 09:52 Weight last 48 hrs Weight 42.184 kg Physical Exam Const: COMMON NORMALS: no acute distress and patient oriented x3 HENMT: COMMON NORMALS: normocephalic HEAD & SCALP: normocephalic Eye: COMMON NORMALS: Equal, round and reactive pupils present and EOMs intact bilaterally Neck/C-Spine: COMMON NORMALS: no JVD Lymph: LYMPHATIC: no lymphadenopathy noted Resp: COMMON NORMALS: normal respiratory effort, No retractions, No use of accessory muscles and clear to auscultation bilaterally AUSCULTATION: clear to auscultation bilaterally Cardio: COMMON NORMALS: regular rate, regular rhythm, S1 normal heart sound present and S2 normal heart sound present RATE: regular rate RHYTHM: abnormal rhythm irregularly irregular HEART SOUNDS: S1 normal heart sound present and S2 normal heart sound present GI: COMMON NORMALS: Normal to inspection, nondistended, normoactive bowel sounds present, Soft to palpation and non-tender Extremity: COMMON NORMALS: no pedal edema Neuro: COMMON NORMALS: patient oriented x3, CN's II-XII intact bilaterally, moves all extremities and no focal motor deficits Psych: COMMON NORMALS: mental status grossly normal Data 12/01/23 10:13 12/01/23 10:13 A&P Assessment and plan (1) Diastolic congestive heart failure: (2) CHF exacerbation: (3) Aortic stenosis: Qualifiers: Cardiac valve disease etiology: nonrheumatic Qualified Code(s): I35.0 - Nonrheumatic aortic (valve) stenosis (4) Atrial fibrillation with RVR: (5) Shortness of breath: Plan Shortness of breath -Likely multifactorial -From A-fib with RVR -Diastolic CHF exacerbation -Recent history of TAVR Plan -Admit to cardiac stepdown unit -Has received 60 mg IV push Lasix in the emergency room, will dose Lasix based on clinical progress -Currently in A-fib heart rates are well-controlled but she has developed A-fib with RVR in the emergency room, there was plans on Cardizem drip currently heart rates are well-controlled we will hold off -Patient has been having tachybradycardia syndrome, will continue to monitor continue home metoprolol 25 mg once daily -Cardiac echo -Recent surgery, venous ultrasound for DVT, Pro-Anthony, CRP, D-dimer, respiratory viral panel -Troponin series, serial EKGs, serial troponins, telemetry monitoring -Full code -Lovenox for DVT prophylaxis Attestations Medical Necessity Statement*: Patient requires hospitalization, inpatient, greater than 2 midnights, for shortness of breath, likely multifactorial from CHF exacerbation diastolic, fluid overload, A-fib with RVR Diagnoses Diastolic congestive heart failure I50.30 CHF exacerbation I50.9 Nonrheumatic aortic valve stenosis I35.0 Cardiac valve disease etiology: nonrheumatic Atrial fibrillation with RVR I48.91 Shortness of breath R06.02
[2023-12-01 14:40] LABS: INR 0.97 (0.8-1.2)
[2023-12-01 14:49] LABS: D Dimer 3.09 ug/mLFEU (0-0.59)
[2023-12-01] MEDS: enoxaparin 40 mg/0.4 mL Syringe SUBCUT (14:50)
[2023-12-01] MEDS: pantoprazole 40 mg SDV IVP (14:51)
[2023-12-01 15:12] LABS: Procalcitonin 0.11 ng/mL (0-0.5); Thyroid Stimulating Hormone 6.39 uIU/mL (0.27-4.20)
[2023-12-01 15:17] LABS: Troponin 5 6HR 47.12 ng/L (0-10); Troponin 5 6HR Delta 6.12 ng/L (0-12)
[2023-12-01 15:19] LABS: Lactic Sepsis W/Reflex 1.5 mmol/L (0.5-2.2)
[2023-12-01 15:23] LABS: C Reactive Protein 7.9 mg/L (0.0-4.9)
--- NOTE | 2023-12-01 15:52 | CTR_ITS ---
PROCEDURE INFORMATION: Exam: CTA Chest With Contrast Exam date and time: 12/01/2023 4:05 PM Age: 88 years old Clinical indication: Shortness of breath; Prior surgery; Surgery date: <1 month; Surgery type: Heart valve replacement; Additional info: SOB TECHNIQUE: Imaging protocol: Computed tomographic angiography of the chest with contrast. Exam focused on the arteries. 3D rendering (Not supervised by radiologist): MIP and/or 3D reconstructed images were created by the technologist. Radiation optimization: All CT scans at this facility use at least one of these dose optimization techniques: automated exposure control; mA and/or kV adjustment per patient size (includes targeted exams where dose is matched to clinical indication); or iterative reconstruction. Contrast material: OMNI 350; Contrast volume: 100 ml; Contrast route: INTRAVENOUS (IV); COMPARISON: CT angio chest PE protcl [id number] 10/09/2023 12:07 PM RADIATION DOSE METRICS: Total DLP (mGy-cm): 151.2 FINDINGS: Pulmonary arteries: Evaluation for pulmonary thromboembolism is limited beyond the segmental level due to respiratory motion. No evidence of PE. Aorta: Postsurgical changes of the aortic valve and aortic root. No evidence of aneurysmal dilatation. Detailed evaluation is limited by minimal IV contrast within the thoracic aorta. No evidence of dissection. Thyroid: Grossly unremarkable. Lungs: No focal consolidation or evidence of pneumonia. There is bibasilar mucous plugging and subsegmental atelectasis. Fibronodular changes of the apices. Moderate simple bilateral pleural effusions. No pneumothorax. Heart: Mild cardiomegaly. No pericardial effusion. Mediastinal space: No evidence of mediastinal mass, fluid collection or hematoma. Lymph nodes: No mediastinal or hilar adenopathy. There are few prominent mediastinal and hilar nodes, possibly secondary to lymphovascular congestion. Bones/joints: No evidence of acute fracture or aggressive osseous lesion. Soft tissues: No evidence of fluid collection or hematoma in the superficial soft tissues. Other findings: No evidence of acute abnormality in the upper abdomen. CT/CT angio chest PE protcl [id number] IMPRESSION: 1. No evidence of PE or acute aortic abnormality. 2. Moderate bilateral pleural effusions. 3. Bibasilar mucous plugging and subsegmental atelectasis. 4. Postsurgical changes of the aortic valve and aortic root.
[2023-12-01 16:45] LABS: Bilirubin Urine Neg (Negative); Blood Urine 2+ (Negative); Glucose Urine UA Norm (Normal); Ketones Urine Negative (Negative); Nitrate Urine Negative (Negative); Protein Urine Neg (Negative); Specific Gravity, Urine 1.005 (1.005-1.030); Urine Appearance Clear (CLEAR); Urine Color Straw (Yellow); pH Urine 7 (5-7)
[2023-12-01 16:46] LABS: Add Urine Culture? Yes; Add Urine Microscopic? YES; Bacteria Urine 1+ /hpf; Leukocyte Esterase Urine 2+ (Negative); RBC Urine 0-4 /hpf (0-2); Squamous Epithelial Cell Urine 0-4 /hpf (0-5); Urobilinogen Urine Norm (Negative)
[2023-12-01 16:48] LABS: ABG PCO2 37.6 mmHg (35-45); ABG PH Result 7.47 (7.35-7.45); Arterial Blood Gas Hematocrit 30.2 % (37-47); Base Excess ABG 3.2 mmol/L (-2.0-2.0); Blood Gas Allen Test Pos; Blood Gas Operator Identificat glc; Blood Gas Sample Site Radial, right; Blood Gas Sample Type Arterial; HCO3 ABG 27.1 mmol/L (22-26); Oxygen Device ROOM AIR; PO2 ABG 64.1 mmHg (80.0-100.0); PO2 FiO2 Ratio Arterial Blood 0
[2023-12-01] MEDS: losartan 50 mg Tablet PO (17:24)
[2023-12-01 17:27] LABS: Adenovirus Not Detected (NOT DETECT); Chlamydia Pneumoniae Not Detected (NOT DETECT); Coronavirus 229E,HKU1,NL63,OC4 Not Detected (NOT DETECT); Human Metapneumovirus Not Detected (NOT DETECT); Human Rhinovirus/Enterovirus Not Detected (NOT DETECT); Influenza A Not Detected (NOT DETECT); Influenza A H1 Not Detected (NOT DETECT); Influenza A H1-2009 Not Detected (NOT DETECT); Influenza A H3 Not Detected (NOT DETECT); Influenza B Not Detected (NOT DETECT); Mycoplasma Pneumoniae Not Detected (NOT DETECT); Parainfluenza Virus Type 1 Not Detected (NOT DETECT); Parainfluenza Virus Type 2 Not Detected (NOT DETECT); Parainfluenza Virus Type 3 Not Detected (NOT DETECT); Parainfluenza Virus Type 4 Not Detected (NOT DETECT); Respiratory Syncytial Virus A Not Detected (NOT DETECT); Respiratory Syncytial Virus B Not Detected (NOT DETECT); SARS-COV-2 Not Detected (NOT DETECT)
[2023-12-01] MEDS: trazodone 150 mg Tablet PO (20:40)
[2023-12-01] MEDS: acetaminophen 325 mg Tablet 650 MG PO (23:53)
[2023-12-02] VITALS (16 sets, daily range): BP systolic 112–141; BP diastolic 58–93; PULSE 94–134; RESP 16–26; TEMP 36.3–37; O2SAT 94–98
[2023-12-02] MEDS: albuterol 2.5 mg/3 mL Neb INHALATION ×2 (03:42→20:42)
[2023-12-02 05:21] LABS: Basophils # 0.1 10^3/uL (0.0-0.1); Basophils % 0.9 %; Eosinophils # 0.2 10^3/uL (0.0-0.8); Hematocrit 30.9 % (36-47); Lymphocytes # 1.6 10^3/uL (0.8-4.8); Lymphocytes % 21.2 %; Mean Corpuscular HGB Conc 30.7 g/dL (30-55); Mean Corpuscular Hemoglobin 25.4 pg (27-33); Mean Corpuscular Volume 82.6 fl (85-98); Mean Platelet Volume 9.3 fL (7.4-10.4); Monocytes # 0.8 10^3/uL (0.2-0.9); Monocytes % 10.8 %; Neutrophils # 4.81 10^3/uL (1.8-7.7); Neutrophils % 63.7 %; Nucleated Red Blood Cells % 0 %; Platelet Count 280 10^3/cmm (157-399); Red Blood Count 3.74 10^6/uL (3.85-5.65); Red Cell Distribution Width 14.6 % (12.1-15.1); White Blood Count 7.56 10^3/uL (3.29-11.43)
[2023-12-02 05:49] LABS: Anion Gap 14.4 (5-19); Blood Urea Nitrogen 31 mg/dL (8-23); Calcium 8.9 mg/dL (8.5-10.5); Carbon Dioxide 27 mmol/L (22-29); Chloride 101 mmol/L (98-107); Glucose 127 mg/dL (65-115); Magnesium 2.3 mg/dL (1.7-2.3); Osmolality Calculated 294 mOsm/kg (285-295); Phosphorus 4.3 mg/dL (2.5-4.5); Potassium 4.4 mmol/L (3.5-5.1); Sodium 138 mmol/L (136-145)
[2023-12-02] MEDS: pantoprazole DR 40 mg Tablet PO (06:11)
[2023-12-02 08:39] LABS: Alanine Aminotransferase 31 U/L (0-33); Albumin Level 3.5 g/dL (3.5-5.2); Alkaline Phosphatase 117 U/L (35-105); Aspartate Amino Transferase 36 U/L (0-32); Globulin 2.7 g/dL (1.3-4.6); Total Bilirubin 0.2 mg/dL (0.15-1.2); Total Protein 6.2 g/dL (6.6-8.7)
[2023-12-02] MEDS: potassium chloride ER 20 mEq Tablet PO (08:47)
[2023-12-02] MEDS: losartan 50 mg Tablet PO ×2 (08:48→17:31)
[2023-12-02] MEDS: metoprolol tartrate 25 mg Tablet PO ×2 (08:48→20:27)
[2023-12-02] MEDS: aspirin 81 mg EC Tablet PO (08:48)
[2023-12-02] MEDS: FUROsemide 10 mg/mL SDV 4mL 40 MG IVP (08:49)
[2023-12-02] MEDS: enoxaparin 40 mg/0.4 mL Syringe SUBCUT (15:05)
--- NOTE | 2023-12-02 15:18 | P.PN_ITS ---
Subjective 2 Subjective: Patient was seen this morning, she sitting up at the side of the bed, heart rates in the 140s, A-fib with RVR, she is receiving her morning metoprolol she tells me that she continues to feel short of breath, does have palpitations no chest pain, no lightheadedness, dizziness, no nausea, no vomiting, Vitals/I&O/Wt Last Vital Signs Temp 97.3 F L 12/02/23 11:15 Pulse 97 12/02/23 14:00 Resp 21 H 12/02/23 11:15 BP 118/65 12/02/23 11:15 Pulse Ox 94 12/02/23 11:15 O2 Del Method Room Air 12/02/23 11:15 12/02/23 12/02/23 12/02/23 06:59 14:59 22:59 Intake Total 200 / 920 480 / 480 Balance 200 / 840 480 / 480 Weight last 48 hrs Weight 43.726 kg Weight 42.779 kg Weight 42.184 kg Physical Exam 2 Const: COMMON NORMALS: no acute distress and patient oriented x3 Resp: COMMON NORMALS: normal respiratory effort, No retractions and No use of accessory muscles AUSCULTATION: crackles and wheezes Cardio: COMMON NORMALS: regular rhythm, S1 normal heart sound present and S2 normal heart sound present RATE: tachycardic RHYTHM: regular rhythm H EART SOUNDS: S1 normal heart sound present and S2 normal heart sound present GI: COMMON NORMALS: Normal to inspection, nondistended, normoactive bowel sounds present and non-tender Extremity: COMMON NORMALS: no pedal edema Neuro: COMMON NORMALS: patient oriented x3 Psych: COMMON NORMALS: mental status grossly normal Data 12/02/23 04:59 12/02/23 04:59 Micro: Microbiology 12/01/23 16:18 Urine Culture - Final Urine,Clean Catch Strep agalactiae - (group b) A&P Assessment and plan (1) Diastolic congestive heart failure: (2) CHF exacerbation: (3) Aortic stenosis: Qualifiers: Cardiac valve disease etiology: nonrheumatic Qualified Code(s): I35.0 - Nonrheumatic aortic (valve) stenosis (4) Atrial fibrillation with RVR: (5) Shortness of breath: Plan Shortness of breath -Likely multifactorial -From A-fib with RVR -Diastolic CHF exacerbation -Recent history of TAVR Plan -Admit to cardiac stepdown unit - 1 dose of IV lasix 40mg -metoprolol 25mg BID -Cardiac echo CONCLUSIONS LV systolic function is normal with EF 55 to 60%. Left ventricle is severely dilated. Pleural effusion is seen. Trivial pericardial effusion Bioprosthetic aortic valve is seen. Mild to moderate aortic regurgitation. No significant stenosis. Mild to moderate mitral regurgitation. Moderate mitral stenosis. Mild tricuspid regurgitation. Severe pulmonary hypertension Compared to prior echocardiogram from 2022,patient now has bioprosthetic aortic valve. -Recent surgery, venous ultrasound for negative for DVT, ct angio negative for pe -Troponin series, serial EKGs, serial troponins, telemetry monitoring -Full code -Lovenox for DVT prophylaxis Plan for today diuresis with Lasix 40 mg IV, increase metoprolol to 25 twice daily, monitor heart rate as patient is in A-fib with RVR, follow cultures, Attestations 2 Medical Necessity Statement*: Patient requires hospitalization, inpatient, greater than 2 minutes, for CHF exacerbation, A-fib, Diagnoses Diastolic congestive heart failure I50.30 CHF exacerbation I50.9 Nonrheumatic aortic valve stenosis I35.0 Cardiac valve disease etiology: nonrheumatic Atrial fibrillation with RVR I48.91 Shortness of breath R06.02
[2023-12-02] MEDS: trazodone 150 mg Tablet PO (20:27)
[2023-12-03] VITALS (11 sets, daily range): BP systolic 114–136; BP diastolic 54–96; PULSE 84–142; RESP 18–35; TEMP 36.4–37; O2SAT 94–100
[2023-12-03 04:53] LABS: Basophils # 0.1 10^3/uL (0.0-0.1); Basophils % 0.7 %; Eosinophils # 0.3 10^3/uL (0.0-0.8); Eosinophils % 3.6 %; Hematocrit 29.3 % (36-47); Lymphocytes # 1.6 10^3/uL (0.8-4.8); Lymphocytes % 22.6 %; Mean Corpuscular Hemoglobin 25.1 pg (27-33); Mean Corpuscular Volume 83.5 fl (85-98); Mean Platelet Volume 9.9 fL (7.4-10.4); Monocytes # 0.8 10^3/uL (0.2-0.9); Monocytes % 11.9 %; Neutrophils # 4.22 10^3/uL (1.8-7.7); Neutrophils % 60.8 %; Nucleated Red Blood Cells % 0 %; Platelet Count 266 10^3/cmm (157-399); Red Blood Count 3.51 10^6/uL (3.85-5.65); Red Cell Distribution Width 14.6 % (12.1-15.1); White Blood Count 6.95 10^3/uL (3.29-11.43)
[2023-12-03 05:13] LABS: Alanine Aminotransferase 26 U/L (0-33); Albumin Level 3.4 g/dL (3.5-5.2); Alkaline Phosphatase 108 U/L (35-105); Anion Gap 14.3 (5-19); Aspartate Amino Transferase 24 U/L (0-32); Blood Urea Nitrogen 35 mg/dL (8-23); Carbon Dioxide 25 mmol/L (22-29); Chloride 102 mmol/L (98-107); Glucose 99 mg/dL (65-115); Magnesium 2.2 mg/dL (1.7-2.3); Osmolality Calculated 292 mOsm/kg (285-295); Phosphorus 3.8 mg/dL (2.5-4.5); Potassium 4.3 mmol/L (3.5-5.1); Sodium 137 mmol/L (136-145); Total Bilirubin 0.2 mg/dL (0.15-1.2); Total Protein 6.4 g/dL (6.6-8.7)
[2023-12-03] MEDS: pantoprazole DR 40 mg Tablet PO (06:12)
[2023-12-03] MEDS: losartan 50 mg Tablet PO (08:45)
[2023-12-03] MEDS: metoprolol tartrate 25 mg Tablet PO (08:46)
[2023-12-03] MEDS: FUROsemide 10 mg/mL SDV 4mL 40 MG IVP (08:46)
[2023-12-03] MEDS: aspirin 81 mg EC Tablet PO (08:46)
--- NOTE | 2023-12-03 11:14 | PC.SOCIAL ---
Pg 2 IMM Explained to pt Pg 2 IMM. No questions voiced. Provided pt a copy. Initialed, dated, & timed a copy & placed in chart.
--- NOTE | 2023-12-03 13:11 | PC.NURSE ---
PT BRINGS IN AUTOLOGOUS SERUM EYE GTTS FROM HOME TO BE TAKEN TID. MUST BE REFRIGERATED. DR. MARTIN OK'D STARTING THESE IN HOSPITAL. NOTIFIED ALICIA IN PHARMACY. GTTS TAKEN TO PHARMACY FOR VERIFICATION.
--- NOTE | 2023-12-03 14:43 | P.PN_ITS ---
Subjective 2 Subjective: Patient does report fluctuations of her heart rate, does report shortness of breath and edema but it is improving, during my discussion with her with minimal movement her heart rates to go to the 140s, but quickly settled back down into the low 100s Vitals/I&O/Wt Last Vital Signs Temp 97.9 F 12/03/23 12:00 Pulse 103 H 12/03/23 12:00 Resp 18 12/03/23 12:00 BP 119/60 12/03/23 12:00 Pulse Ox 94 12/03/23 12:00 O2 Del Method Room Air 12/03/23 12:00 12/02/23 12/03/23 12/03/23 22:59 06:59 14:59 Intake Total 400 / 880 Balance 400 / 880 Weight last 48 hrs Weight 44.633 kg Weight 43.726 kg Physical Exam 2 Const: COMMON NORMALS: no acute distress and patient oriented x3 Resp: COMMON NORMALS: normal respiratory effort, No retractions, No use of accessory muscles and clear to auscultation bilaterally AUSCULTATION: clear to auscultation bilaterally Cardio: COMMON NORMALS: regular rate, regular rhythm, S1 normal heart sound present and S2 normal heart sound present RATE: regular rate RHYTHM: r egular rhythm HEART SOUNDS: S1 normal heart sound present and S2 normal heart sound present GI: COMMON NORMALS: Normal to inspection, nondistended, normoactive bowel sounds present and non-tender Extremity: COMMON NORMALS: no pedal edema Neuro: COMMON NORMALS: patient oriented x3 Psych: COMMON NORMALS: mental status grossly normal Data 12/03/23 04:12 12/03/23 04:12 Micro: Microbiology 12/01/23 16:18 Urine Culture - Final Urine,Clean Catch Strep agalactiae - (group b) A&P Assessment and plan (1) Diastolic congestive heart failure: (2) CHF exacerbation: (3) Aortic stenosis: Qualifiers: Cardiac valve disease etiology: nonrheumatic Qualified Code(s): I35.0 - Nonrheumatic aortic (valve) stenosis (4) Atrial fibrillation with RVR: (5) Shortness of breath: Plan Shortness of breath -Likely multifactorial -From A-fib with RVR -Diastolic CHF exacerbation -Recent history of TAVR Plan -Admit to cardiac stepdown unit - 1 dose of IV lasix 40mg -Increase metoprolol to 37.5 mg twice daily -Cardiac echo CONCLUSIONS LV systolic function is normal with EF 55 to 60%. Left ventricle is severely dilated. Pleural effusion is seen. Trivial pericardial effusion Bioprosthetic aortic valve is seen. Mild to moderate aortic regurgitation. No significant stenosis. Mild to moderate mitral regurgitation. Moderate mitral stenosis. Mild tricuspid regurgitation. Severe pulmonary hypertension Compared to prior echocardiogram from 2022,patient now has bioprosthetic aortic valve. -Recent surgery, venous ultrasound for negative for DVT, ct angio negative for pe -Troponin series, serial EKGs, serial troponins, telemetry monitoring -Full code -Lovenox for DVT prophylaxis Plan for today diuresis with Lasix 40 mg IV, increase metoprolol to 37.5 twice daily, monitor heart rate as patient is in A-fib with RVR, follow cultures, Attestations 2 Medical Necessity Statement*: Patient requires hospitalization for A-fib with RVR, fluid overload Coding Level of Care Code Acute Code for Chg Fwd Diagnoses Diastolic congestive heart failure I50.30 CHF exacerbation I50.9 Nonrheumatic aortic valve stenosis I35.0 Cardiac valve disease etiology: nonrheumatic Atrial fibrillation with RVR I48.91 Shortness of breath R06.02
[2023-12-03] MEDS: enoxaparin 40 mg/0.4 mL Syringe SUBCUT (15:14)
[2023-12-03] MEDS: metoprolol tartrate 25 mg Tablet 37.5 MG PO (17:14)
[2023-12-03] MEDS: trazodone 150 mg Tablet PO (20:42)
[2023-12-03] MEDS: albuterol 2.5 mg/3 mL Neb INHALATION (21:19)
[2023-12-04] VITALS (7 sets, daily range): BP systolic 110–123; BP diastolic 57–81; PULSE 79–110; RESP 20–24; TEMP 36.4–37.1; O2SAT 94–100; BMI 19.0
[2023-12-04 03:56] LABS: Basophils # 0.1 10^3/uL (0.0-0.1); Eosinophils # 0.3 10^3/uL (0.0-0.8); Eosinophils % 4.1 %; Hematocrit 30.2 % (36-47); Lymphocytes # 1.9 10^3/uL (0.8-4.8); Lymphocytes % 29.8 %; Mean Corpuscular HGB Conc 30.1 g/dL (30-55); Mean Corpuscular Hemoglobin 25.2 pg (27-33); Mean Corpuscular Volume 83.7 fl (85-98); Mean Platelet Volume 9.9 fL (7.4-10.4); Monocytes # 0.9 10^3/uL (0.2-0.9); Neutrophils # 3.19 10^3/uL (1.8-7.7); Neutrophils % 50.8 %; Nucleated Red Blood Cells % 0 %; Platelet Count 255 10^3/cmm (157-399); Red Blood Count 3.61 10^6/uL (3.85-5.65); Red Cell Distribution Width 14.5 % (12.1-15.1); White Blood Count 6.28 10^3/uL (3.29-11.43)
[2023-12-04 04:20] LABS: Alanine Aminotransferase 20 U/L (0-33); Albumin Level 3.4 g/dL (3.5-5.2); Alkaline Phosphatase 102 U/L (35-105); Anion Gap 13.5 (5-19); Aspartate Amino Transferase 22 U/L (0-32); Blood Urea Nitrogen 48 mg/dL (8-23); Calcium 9.2 mg/dL (8.5-10.5); Carbon Dioxide 27 mmol/L (22-29); Chloride 103 mmol/L (98-107); Globulin 3.3 g/dL (1.3-4.6); Glucose 94 mg/dL (65-115); Magnesium 2.3 mg/dL (1.7-2.3); Osmolality Calculated 300 mOsm/kg (285-295); Phosphorus 4.1 mg/dL (2.5-4.5); Potassium 4.5 mmol/L (3.5-5.1); Sodium 139 mmol/L (136-145); Total Bilirubin 0.2 mg/dL (0.15-1.2); Total Protein 6.7 g/dL (6.6-8.7)
[2023-12-04] MEDS: pantoprazole DR 40 mg Tablet PO (06:18)
[2023-12-04] MEDS: metoprolol tartrate 25 mg Tablet 37.5 MG PO (06:19)
[2023-12-04] MEDS: aspirin 81 mg EC Tablet PO (08:00)
[2023-12-04] MEDS: FUROsemide 10 mg/mL SDV 4mL 40 MG IVP (09:18)
--- NOTE | 2023-12-04 09:44 | PC.NURSE ---
ambulating down hallways with machinist apprentice wood at bedside. Pt denies any chest pain or discomfort but reports of shortness of breath. Afib rhythm for a couple sec during activity increased to 110 to 120s then down to upper 80s with rest. Doctor Fischer notified.
--- NOTE | 2023-12-04 11:57 | PM.DCS ---
Discharge Providers Date of Admission: 12/01/23 13:32 Date of Discharge: December 04, 2023 Attending Provider at Admission: Sebastian Fischer MD Attending Provider at Discharge: Sebastian Fischer MD Primary Care Provider: Stoney Jo Diagnoses at Discharge Discharge Diagnosis (1) Diastolic congestive heart failure: Status: Acute (2) CHF exacerbation: Status: Acute (3) Aortic stenosis: Status: Acute Qualifiers: Cardiac valve disease etiology: nonrheumatic Qualified Code(s): I35.0 - Nonrheumatic aortic (valve) stenosis (4) Atrial fibrillation with RVR: Status: Acute (5) Shortness of breath: Status: Inactive Reason for Visit Reason for Visit: regained fluid since aortic valve replacement Hospital Course Hospital Course Jes Durbin is a 88 year old female with a past medical history of History of TAVR, on November 19, 2023, for aortic stenosis, who presents to [facility] for shortness of breath. Patient tells me that since her aortic valve surgery, on the for about 4 days she felt significantly better, but after, she felt increasingly short of breath, short of breath with exertion with orthopnea paroxysmal nocturnal dyspnea, she tells me that they had her on a tapering dose of Lasix, she feels that she was taking too quickly off Lasix, she has gained about 4 pounds in the last few weeks, she was also found to have A-fib with RVR in the emergency room, she tells me that her gastroenterology professor in [place] due to elevated heart rate had increased her metoprolol to 50 mg daily, however due to issues with bradycardia, her gastroenterology professor in [place] wanted her to continue 25 mg once daily currently she is in A-fib, heart rates in the 60s, room air normotensive, alert oriented x 3, following all commands, denies being on blood thinners she was told that the gastroenterology professor in [place] did not want her to be on any blood thinners Patient was admitted to [facility] for shortness of breath likely multifactorial from A-fib with RVR, diastolic CHF exacerbation, recent TAVR, for A-fib with RVR, due to developing of tachybradycardia syndrome, her metoprolol was slowly upward titrated to 37.5 mg twice daily, follow-up with cardiology as outpatient, her heart rates do increase into the 120s at times with exertion, however these rapidly improved, the hindrance to increasing her metoprolol dose is development of bradycardia. Patient was advised if she has any chest pain or palpitations to go to emergency room. For her A-fib, stroke prophylaxis, discharged on Eliquis 2.5 mg twice daily for diastolic CHF exacerbation she was diuresed as inpatient, discharged on Lasix 40 mg once daily with potassium placement therapy Physical Exam Const: COMMON NORMALS: no acute distress and patient oriented x3 Resp: COMMON NORMALS: normal respiratory effort, No retractions, No use of accessory muscles and clear to auscultation bilaterally AUSCULTATION: clear to auscultation bilaterally Cardio: COMMON NORMALS: regular rate, S1 normal heart sound present and S2 normal heart sound present RATE: regular rate RHYTHM: abnormal rhythm irregularly irregular HEART SOUNDS: S1 normal heart sound present and S2 normal heart sound present GI: COMMON NORMALS: Normal to inspection, nondistended, normoactive bowel sounds present, Soft to palpation, non-tender, No hepatosplenomegaly present, no masses and no bruits PALPATION: Yes Soft to palpation and Yes No hepatosplenomegaly present Extremity: COMMON NORMALS: no pedal edema Neuro: COMMON NORMALS: patient oriented x3 Psych: COMMON NORMALS: mental status grossly normal Discharge Data Studies Completed and Pending Completed Studies During Hospitalization Category Date Time Status CT angio chest PE protcl [id number] Stat Cat Scan 12/01/23 15:52 Completed XR chest 1V portable [id number] Stat Exams 12/01/23 10:11 [place] [id number] Routine Ultrasound 12/01/23 14:27 Completed CV. echo complete* [id number] Routine Ultrasound 12/01/23 14:27 Completed Pending at discharge Category Date Time Status Complete Blood Count w/Auto AM LABS Lab 12/05/23 04:00 Ordered Comprehensive Metabolic Panel AM LABS Lab 12/05/23 04:00 Ordered Magnesium AM LABS Lab 12/05/23 04:00 Ordered Phosphorus AM LABS Lab 12/05/23 04:00 Ordered Radiology Impressions Venous Duplex 12/01/23 14:27 IMPRESSION: 1. No sonographic evidence of deep venous thrombosis in either lower extremity. Chest CTA 12/01/23 15:52 IMPRESSION: 1. No evidence of PE or acute aortic abnormality. 2. Moderate bilateral pleural effusions. 3. Bibasilar mucous plugging and subsegmental atelectasis. 4. Postsurgical changes of the aortic valve and aortic root. Laboratory Results WBC 6.28 10^3/uL (3.29-11.43) 12/04/23 03:10 RBC 3.61 10^6/uL (3.85-5.65) L 12/04/23 03:10 Hgb 9.10 g/dL (11.27-16.99) L 12/04/23 03:10 Hct 30.2 % (36-47) L 12/04/23 03:10 MCV 83.7 fl (85-98) L 12/04/23 03:10 MCH 25.2 pg (27-33) L 12/04/23 03:10 MCHC 30.1 g/dL (30-55) 12/04/23 03:10 RDW 14.5 % (12.1-15.1) 12/04/23 03:10 Plt Count 255 10^3/cmm (157-399) 12/04/23 03:10 MPV 9.9 fL (7.4-10.4) 12/04/23 03:10 Neut % (Auto) 50.8 % 12/04/23 03:10 Lymph % (Auto) 29.8 % 12/04/23 03:10 Garrett % (Auto) 14.0 % 12/04/23 03:10 Eos % (Auto) 4.1 % 12/04/23 03:10 Baso % (Auto) 1.0 % 12/04/23 03:10 Neut # (Auto) 3.19 10^3/uL (1.8-7.7) 12/04/23 03:10 Lymph # (Auto) 1.9 10^3/uL (0.8-4.8) 12/04/23 03:10 Garrett # (Auto) 0.9 10^3/uL (0.2-0.9) 12/04/23 03:10 Eos # (Auto) 0.3 10^3/uL (0.0-0.8) 12/04/23 03:10 Baso # (Auto) 0.1 10^3/uL (0.0-0.1) 12/04/23 03:10 Nucleated RBC % (auto) 0 % 12/04/23 03:10 Nucleated RBCs # 0.0 /100WBC 12/04/23 03:10 PT 13.20 SECONDS (12.1-14.9) 12/01/23 10:13 INR 0.97 (0.8-1.2) 12/01/23 10:13 D-Dimer 3.09 ug/mLFEU (0-0.59) H 12/01/23 10:13 Specimen Type Arterial 12/01/23 16:38 Sample Site Radial, right 12/01/23 16:38 ABG pH 7.47 (7.35-7.45) H 12/01/23 16:38 ABG pCO2 37.6 mmHg (35-45) 12/01/23 16:38 ABG pO2 64.1 mmHg (80.0-100.0) L 12/01/23 16:38 ABG PO2/FiO2 Ratio 0 12/01/23 16:38 ABG HCO3 27.1 mmol/L (22-26) H 12/01/23 16:38 ABG Base Excess 3.2 mmol/L (-2.0-2.0) H 12/01/23 16:38 Zaid Test Pos 12/01/23 16:38 Hematocrit 30.2 % (37-47) L 12/01/23 16:38 O2 Delivery Device Room air 12/01/23 16:38 FiO2 21.0 % 12/01/23 16:38 Aeronautical Engineer ID glc 12/01/23 16:38 Sodium 139 mmol/L (136-145) 12/04/23 03:10 Potassium 4.5 mmol/L (3.5-5.1) 12/04/23 03:10 Chloride 103 mmol/L (98-107) 12/04/23 03:10 Carbon Dioxide 27 mmol/L (22-29) 12/04/23 03:10 Anion Gap 13.5 (5-19) 12/04/23 03:10 BUN 48 mg/dL (8-23) H 12/04/23 03:10 Creatinine 1.1 mg/dL (0.5-0.9) H 12/04/23 03:10 GFR Calculation Not Reportable 12/04/23 03:10 Glucose 94 mg/dL (65-115) 12/04/23 03:10 Calculated Osmolality 300 mOsm/kg (285-295) H 12/04/23 03:10 Lactic Acid 1.5 mmol/L (0.5-2.2) 12/01/23 14:30 Calcium 9.2 mg/dL (8.5-10.5) 12/04/23 03:10 Phosphorus 4.1 mg/dL (2.5-4.5) 12/04/23 03:10 Magnesium 2.3 mg/dL (1.7-2.3) 12/04/23 03:10 Total Bilirubin 0.2 mg/dL (0.15-1.2) 12/04/23 03:10 Direct Bilirubin 0.20 mg/dL (0.00-0.30) 12/02/23 04:59 AST 22 U/L (0-32) 12/04/23 03:10 ALT 20 U/L (0-33) 12/04/23 03:10 Alkaline Phosphatase 102 U/L (35-105) 12/04/23 03:10 Troponin T Baseline 41 ng/L (0-10) H 12/01/23 10:13 Troponin T 120 Minute 43.06 ng/L (0-10) H 12/01/23 12:22 Delta Troponin T 2.06 ABS# (0-10) 12/01/23 12:22 Troponin T Hi Sens 6Hr 47.12 ng/L (0-10) H 12/01/23 14:30 Troponin T Hi Sens 6Hr Delta 6.12 ng/L (0-12) 12/01/23 14:30 C-Reactive Protein 7.9 mg/L (0.0-4.9) H 12/01/23 10:13 NT-Pro-B Natriuret Pep 8609 pg/mL (0-450) H 12/01/23 10:13 Total Protein 6.7 g/dL (6.6-8.7) 12/04/23 03:10 Albumin 3.4 g/dL (3.5-5.2) L 12/04/23 03:10 Globulin 3.3 g/dL (1.3-4.6) 12/04/23 03:10 Procalcitonin 0.11 ng/mL (0-0.5) 12/01/23 10:13 TSH 6.39 uIU/mL (0.27-4.20) H 12/01/23 10:13 Urine Color Straw (Yellow) 12/01/23 16:18 Urine Appearance Clear (CLEAR) 12/01/23 16:18 Urine pH 7 (5-7) 12/01/23 16:18 Ur Specific [place] 1.005 (1.005-1.030) 12/01/23 16:18 Urine Protein Neg (Negative) 12/01/23 16:18 Urine Glucose (UA) Norm (Normal) 12/01/23 16:18 Urine Ketones Negative (Negative) 12/01/23 16:18 Urine Blood 2+ (Negative) H 12/01/23 16:18 Urine Nitrate Negative (Negative) 12/01/23 16:18 Urine Bilirubin Neg (Negative) 12/01/23 16:18 Urine Urobilinogen Norm mg/dL (Negative) 12/01/23 16:18 Ur Leukocyte Esterase 2+ (Negative) H 12/01/23 16:18 Urine RBC 0-4 /hpf (0-2) H 12/01/23 16:18 Urine WBC 5-10 /hpf (0-5) H 12/01/23 16:18 Ur Squamous Epith Cells 0-4 /hpf (0-5) H 12/01/23 16:18 Amorphous Sediment Not Reportable 12/01/23 16:18 Urine Bacteria 1+ /hpf (NONE) H 12/01/23 16:18 Adenovirus (PCR) Not detected (NOT DETECT) 12/01/23 15:34 C. pneumoniae DNA (PCR) Not detected (NOT DETECT) 12/01/23 15:34 Coronavirus 229E (PCR) Not detected (NOT DETECT) 12/01/23 15:34 Human Metapneumovir PCR Not detected (NOT DETECT) 12/01/23 15:34 Influenza A (H1) PCR Not detected (NOT DETECT) 12/01/23 15:34 Influ A (H1/09) PCR Not detected (NOT DETECT) 12/01/23 15:34 Influenza A (H3) PCR Not detected (NOT DETECT) 12/01/23 15:34 Influenza Type A (PCR) Not detected (NOT DETECT) 12/01/23 15:34 Influenza Type B (PCR) Not detected (NOT DETECT) 12/01/23 15:34 M. pneumoniae (PCR) Not detected (NOT DETECT) 12/01/23 15:34 Parainfluenza 1 (PCR) Not detected (NOT DETECT) 12/01/23 15:34 Parainfluenza 2 (PCR) Not detected (NOT DETECT) 12/01/23 15:34 Parainfluenza 3 (PCR) Not detected (NOT DETECT) 12/01/23 15:34 Parainfluenza 4 (PCR) Not detected (NOT DETECT) 12/01/23 15:34 RSV Type A (PCR) Not detected (NOT DETECT) 12/01/23 15:34 RSV Type B (PCR) Not detected (NOT DETECT) 12/01/23 15:34 Entero/Rhino (PCR) Not detected (NOT DETECT) 12/01/23 15:34 SARS-CoV-2 (PCR) Not detected (NOT DETECT) 12/01/23 15:34 Vitals Last Vital Signs Temp 98.7 F 12/04/23 11:06 Pulse 85 12/04/23 11:06 Resp 21 H 12/04/23 11:06 BP 111/57 12/04/23 11:06 Pulse Ox 100 12/04/23 11:06 O2 Del Method Room Air 12/04/23 11:06 Discharge Plan Discharge Patient Disposition: Home Condition: Stable Prescriptions: New metoprolol tartrate 25 mg Tablet 37.5 mg PO Q12H 30 Days Qty: 90 0RF Eliquis 2.5 mg tablet 2.5 mg PO BID 30 Days Qty: 60 0RF Continued omeprazole 40 mg capsule,delayed release(DR/EC) 40 mg PO QAM trazodone 150 mg tablet 150 mg PO QPM albuterol sulfate [ProAir HFA] 90 mcg/actuation HFA aerosol inhaler 1 inh inhalation Q6H PRN (Reason: shortness of breath or wheezing) Qty: 8.5 0RF potassium chloride 20 mEq tablet extended release 20 meq PO QAM 30 Days Qty: 30 0RF furosemide 40 mg Tablet 40 mg PO DAILY@0800 30 Days Qty: 30 0RF Discontinued Aspir-Low 81 mg Tablet,Delayed Release (Dr/Ec) 81 mg PO DAILY losartan 25 mg tablet 50 mg PO BID metoprolol succinate 25 mg tablet extended release 24 hr 25 mg PO DAILY Discharge Orders: Discharge Order (Routine); Ordered 12/04/23 Ordered By: Sebastian Fischer Referrals: Teja Rdz M.D [Physician] - 4-7 days Stoney Jo [Primary Care Provider] - 12/10/23 2:00 pm Discharge Diet: Cardiac Discharge Activity: Resume usual activity Patient Instructions: Heart Failure (DC), CHF Stoplight Activity Restrictions/Additional Instructions: - Please limit fluid intake to 2 L a day -Please take Eliquis 2.5 mg twice daily, if you develop bloody or black stools please go to emergency room -If you have worsening shortness of breath please go to emergency room -Take Lasix 40 mg once daily with potassium replacement Discharge Attestations Time Spent in Discharge Care*: greater than 30 min Quality Metrics Clinical Quality Measures [ No reported AMI, CVA or VTE this stay] Coding Level of Care Code 62816 Total time (in minutes) for Discharge: 45 Diagnoses Diastolic congestive heart failure I50.30 CHF exacerbation I50.9 Nonrheumatic aortic valve stenosis I35.0 Cardiac valve disease etiology: nonrheumatic Atrial fibrillation with RVR I48.91 Shortness of breath R06.02
--- NOTE | 2023-12-04 13:53 | PC.NURSE ---
called doctor pt's family at bedside would like to speak to the hospitalist. they have questions regarding her discharge.
--- NOTE | 2023-12-04 15:52 | PC.NURSE ---
Notified doctor son and granddaughter at bedside and has multiple questions, doctor notified and doctor in room with nurse. They feel like the pt is not ready to go home without an event monitor. Called [facility] and they said that she has an appointment on with event monitor and dr matthews. pt verbalizes understanding.
[2023-12-04] MEDS: albuterol 2.5 mg/3 mL Neb INHALATION (16:02)
[2023-12-04] MEDS: enoxaparin 30 mg/0.3 mL Syringe SUBCUT (16:10)
--- NOTE | 2023-12-04 17:00 | PC.NURSE ---
Discharge instructions Educated pt and family that she will have an appt on dec 09 at 10:30 AM for event monitor then ff-up w/ Dr Rdz at 1:30 PM. Educated pt and family on new meds dosing and timing and possible side effects. Informed pt and family on stopped meds. Discharge packet provided to family.
== END 2023-12-04 17:09 | disposition home or self-care (01) | DRG 308 ==
LOC: ER 10:12 → CSU 13:51
PROVIDERS: Admitting Provider Family Medicine; Emergency Provider Family Medicine; PCP Family Medicine; Visit Provider Family Medicine
DX: I48.91 Unspecified atrial fibrillation (principal); I50.31 Acute diastolic (congestive) heart failure; I25.10 Atherosclerotic heart disease of native coronary artery without angina pectoris; I49.5 Sick sinus syndrome; Z11.52 Encounter for screening for COVID-19; Z95.3 Presence of xenogenic heart valve
CPT/HCPCS: 36415; 36600; 71045; 71275; 80048; 80053; 80076; 81001; 82803; 83605; 83735; 83880; 84100; 84145; 84443; 84484; 85025; 85378; 85610; 86140; 87086; 87486; 87581; 87633; 93005; 93306; 93970; 94640; 94664; 96365; 96372; 96375; 96376; 97110; 97116; 97161; 97165; 99285; C9113; J1650; J1940; J3490; J7613; Q9967

== ENCOUNTER 2023-12-08 08:36 | Inpatient (IN) | payer MEDICARE, SELFPAY ==
[2023-12-08] VITALS (39 sets, daily range): BP systolic 111–146; BP diastolic 48–94; PULSE 69–128; RESP 16–34; TEMP 36.3–36.6; O2SAT 88–99; BMI 18.1
--- NOTE | 2023-12-08 08:50 | XRR_ITS ---
PROCEDURE INFORMATION: Exam: XR Chest Exam date and time: 12/08/2023 9:26 AM Age: 88 years old Clinical indication: Cough and dyspnea; Additional info: Dyspnea/cough TECHNIQUE: Imaging protocol: Radiologic exam of the chest. Views: 1 view. COMPARISON: CT angio chest PE protcl [id number] 12/01/2023 4:05 PM FINDINGS: Lungs: Bibasilar airspace opacities. Pleural spaces: Small bilateral pleural effusions. No pneumothorax. Heart/Mediastinum: Aortic valve replacement. Bones/joints: Unremarkable. XR/XR chest 1V portable [id number] IMPRESSION: Small bilateral pleural effusions with bibasilar airspace opacities, which may reflect atelectasis or pneumonia.
--- NOTE | 2023-12-08 09:09 | ECG_ITS ---
[facility] Test Date: 2023-12-08 Pat Name: Jes Durbin Department: Room: Gender: Female Form Grader Operator: : [id number] Requested By: Benji Bui Order Number: [id number] MD: Teja Rdz M.D. Measurements Intervals Premier Rate: 125 P: 0 LA: 0 QRS: 5 QRSD: 122 T: 82 QT: 326 QTc: 470 Interpretive Statements ATRIAL FIBRILLATION WITH RAPID VENTRICULAR RESPONSE POSSIBLE ANTERIOR MYOCARDIAL INFARCTION , OF INDETERMINATE AGE [30 ms Q WAVE IN V3/V4, OR R < 0.2 mV IN V4] Compared to ECG 12/01/2023 12:47:56 No significant changes Electronically Signed On 12-08-2023 9:48:58 INDIRECT SALES EXEC by Teja Rdz M.D. [id number]
[2023-12-08] MEDS: dilTIAZem 5 mg/mL SDV 5 mL 10 MG IVP (09:31)
[2023-12-08 09:42] LABS: Basophils # 0.1 10^3/uL (0.0-0.1); Basophils % 0.7 %; Eosinophils % 0.5 %; Lymphocytes # 0.9 10^3/uL (0.8-4.8); Lymphocytes % 12.3 %; Mean Corpuscular HGB Conc 29.7 g/dL (30-55); Mean Corpuscular Hemoglobin 24.9 pg (27-33); Mean Platelet Volume 9.9 fL (7.4-10.4); Monocytes # 0.6 10^3/uL (0.2-0.9); Neutrophils # 5.84 10^3/uL (1.8-7.7); Neutrophils % 78.1 %; Nucleated Red Blood Cells % 0 %; Platelet Count 319 10^3/cmm (157-399); Red Blood Count 3.93 10^6/uL (3.85-5.65); Red Cell Distribution Width 14.7 % (12.1-15.1); White Blood Count 7.48 10^3/uL (3.29-11.43)
--- NOTE | 2023-12-08 09:45 | W.ED.SOB ---
HPI - SOB/Dyspnea General: Chief Complaint: Shortness of Breath/Dyspnea Stated Complaint: Retaining Fluids Time Seen by Provider: 12/08/23 08:49 Source: patient and family Mode of arrival: ambulatory History of Present Illness: HPI Narrative: 88-year-old female presents emergency room complaining of shortness of breath with minimal activity. Was seen last week she was admitted for 3 days she had some diastolic congestive heart failure and was also in atrial fibrillation she recently had a TAVR procedure done she is on metoprolol for her rate control she did take that this morning on arrival here she is in the 120s and very symptomatic she converted and decreased her heart rate with a single dose of Cardizem 10 mg IV push she is resting comfortably she denies any chest pain. MD elicited complaint: shortness of breath Pertinent past history: congestive heart failure Context: occurred during exertion Exacerbating factors: exertion Relieving factors: rest Known history of: congestive heart failure Associated symptoms: Deny abdominal pain, chest congestion, chest pain, cough, diaphoresis, dizziness, extremity pain, fever(s), hemoptysis, lightheadedness, myalgias, nausea, orthopnea, palpitations, paresthesias, polydipsia, polyuria, rash, sense of impending doom, syncope or vomiting Treatment prior to arrival: none Review of Systems Const: Denies: fever(s) or diaphoresis Card: Denies: chest pain, palpitations, lightheadedness, syncope or orthopnea Resp: Denies: hemoptysis or chest congestion GI: Denies: abdominal pain, nausea or vomiting : Denies: dysuria, urinary frequency or urinary urgency Musc: Denies: extremity pain Skin/Breast: Denies: rash Neuro: Denies: dizziness Endo: Denies: polyuria or polydipsia [facility] ED PFSH: Medical History (Updated 12/08/23 @ 14:52 by Benji Mcdaniel DO) Atrial fibrillation Mitral regurgitation Coronary artery disease CHF exacerbation Diastolic congestive heart failure Aortic stenosis Surgical History S/P TAVR (transcatheter aortic valve replacement) History of coronary angiogram Social History Smoking and tobacco/nicotine status: never used tobacco/nicotine Second hand smoke exposure: No Alcohol intake: never Substance/Drug Use: never Lives independently: Yes Physical Exam Const: GENERAL APPEARANCE: cooperative and comfortable ORIENTATION/CONSCIOUSNESS: Yes awake, Yes oriented to person, Yes oriented to place and Yes oriented to time HENMT: COMMON NORMALS: normocephalic, atraumatic and hearing grossly normal bilaterally HEAD & SCALP: normocephalic and atraumatic Resp: COMMON NORMALS: normal respiratory effort, No retractions, No use of accessory muscles and clear to auscultation bilaterally AUSCULTATION: clear to auscultation bilaterally Cardio: COMMON NORMALS: No murmurs present (Cardio) RATE: tachycardic RHYTHM: abnormal rhythm irregularly irregular GI: COMMON NORMALS: Soft to palpation and No hepatosplenomegaly present AUSCULTATION: Yes normoactive bowel sounds PALPATION: Yes Soft to palpation, No Tenderness to palpation present (GI), No Guarding due to palpation present (GI) and Yes No hepatosplenomegaly present Extremity: COMMON NORMALS: normal to inspection, capillary refill normal, no clubbing, cyanosis or edema, no calf tenderness and no pedal edema Neuro: SENSORIUM/ORIENTATION: Yes oriented to person, Yes oriented to place and Yes oriented to time Skin: COMMON NORMALS: no rashes or lesions noted GENERAL SKIN EXAM: no rashes or lesions noted Course Vital Signs: Vital signs: Vital Signs Temperature 97.6 F 12/08/23 11:56 Pulse Rate 69 12/08/23 13:40 Respiratory Rate 16 12/08/23 13:40 Blood Pressure 118/63 12/08/23 12:40 Pulse Oximetry 96 12/08/23 13:40 Oxygen Delivery Me thod Room Air 12/08/23 13:40 MDM - SOB/Dyspnea Medical Decision Making On return patient initially has A-fib with RVR resolves down to the 70s and 80s with IV push Cardizem however after time and rate began to worsen again. She did take all of her medications this morning she has had problems in the past with recent hospitalization of the same. Patient started on a Cardizem drip will admit to the hospitalist discussed with Dr. Argueta he will see the patient as well Medical Records I reviewed the patient's medical records. Lab Data I reviewed the patient's lab results. 12/08/23 09:32 12/08/23 09:32 Labs/Radiology: Radiology Impressions Chest X-Ray 12/08/23 08:50 IMPRESSION: Small bilateral pleural effusions with bibasilar airspace opacities, which may reflect atelectasis or pneumonia. Laboratory Results WBC 7.48 10^3/uL (3.29-11.43) 12/08/23 09:32 RBC 3.93 10^6/uL (3.85-5.65) 12/08/23 09:32 Hgb 9.80 g/dL (11.27-16.99) L 12/08/23 09:32 Hct 33.0 % (36-47) L 12/08/23 09:32 MCV 84.0 fl (85-98) L 12/08/23 09:32 MCH 24.9 pg (27-33) L 12/08/23 09:32 MCHC 29.7 g/dL (30-55) L 12/08/23 09:32 RDW 14.7 % (12.1-15.1) 12/08/23 09:32 Plt Count 319 10^3/cmm (157-399) 12/08/23 09:32 MPV 9.9 fL (7.4-10.4) 12/08/23 09:32 Neut % (Auto) 78.1 % 12/08/23 09:32 Lymph % (Auto) 12.3 % 12/08/23 09:32 [place] % (Auto) 8.0 % 12/08/23 09:32 Eos % (Auto) 0.5 % 12/08/23 09:32 Baso % (Auto) 0.7 % 12/08/23 09:32 Neut # (Auto) 5.84 10^3/uL (1.8-7.7) 12/08/23 09:32 Lymph # (Auto) 0.9 10^3/uL (0.8-4.8) 12/08/23 09:32 [place] # (Auto) 0.6 10^3/uL (0.2-0.9) 12/08/23 09:32 Eos # (Auto) 0.0 10^3/uL (0.0-0.8) 12/08/23 09:32 Baso # (Auto) 0.1 10^3/uL (0.0-0.1) 12/08/23 09:32 Nucleated RBC % (auto) 0 % 12/08/23 09:32 Nucleated RBCs # 0.0 /100WBC 12/08/23 09:32 Sodium 140 mmol/L (136-145) 12/08/23 09:32 Potassium 5.9 mmol/L (3.5-5.1) H 12/08/23 09:32 Chloride 104 mmol/L (98-107) 12/08/23 09:32 Carbon Dioxide 23 mmol/L (22-29) 12/08/23 09:32 Anion Gap 18.9 (5-19) 12/08/23 09:32 BUN 40 mg/dL (8-23) H 12/08/23 09:32 Creatinine 1.0 mg/dL (0.5-0.9) H 12/08/23 09:32 GFR Calculation Not Reportable 12/08/23 09:32 Glucose 188 mg/dL (65-115) H 12/08/23 09:32 Calculated Osmolality 305 mOsm/kg (285-295) H 12/08/23 09:32 Calcium 9.1 mg/dL (8.5-10.5) 12/08/23 09:32 Total Bilirubin 0.3 mg/dL (0.15-1.2) 12/08/23 09:32 AST 84 U/L (0-32) H 12/08/23 09:32 ALT 91 U/L (0-33) H 12/08/23 09:32 Alkaline Phosphatase 193 U/L (35-105) H 12/08/23 09:32 NT-Pro-B Natriuret Pep 08531 pg/mL (0-450) H 12/08/23 09:32 Total Protein 7.2 g/dL (6.6-8.7) 12/08/23 09:32 Albumin 3.8 g/dL (3.5-5.2) 12/08/23 09:32 Globulin 3.4 g/dL (1.3-4.6) 12/08/23 09:32 All radiology interpretation(s) finalized by discharge Discharge Plan Discharge Patient Disposition: Admitted As Inpatient Admit Provider: Jason England Clinical Impression: Atrial fibrillation, Diastolic congestive heart failure Condition: Stable Coding Level of Care Code ED Captain Cannery Tender for Zully Beard
--- NOTE | 2023-12-08 10:07 | PC.PHAR ---
PTS' MED LIST HAS THE FOLLOWING CHANGES: ASA 81 MG AND LOSARTAN 25 MG ARE DISCONTINUED, AND METOPROLOL IS CHANGED TO TARTRATE 25 MG TAKE 37.5MG TWICE DAILY.
[2023-12-08 10:11] LABS: Alanine Aminotransferase 91 U/L (0-33); Albumin Level 3.8 g/dL (3.5-5.2); Alkaline Phosphatase 193 U/L (35-105); Anion Gap 18.9 (5-19); Aspartate Amino Transferase 84 U/L (0-32); Blood Urea Nitrogen 40 mg/dL (8-23); Calcium 9.1 mg/dL (8.5-10.5); Carbon Dioxide 23 mmol/L (22-29); Chloride 104 mmol/L (98-107); Creatinine Clr Calc Pharmacy 27.1177; Globulin 3.4 g/dL (1.3-4.6); Glucose 188 mg/dL (65-115); NT Pro B Type Natriuretic Pept 10040 pg/mL (0-450); Osmolality Calculated 305 mOsm/kg (285-295); Potassium 5.9 mmol/L (3.5-5.1); Sodium 140 mmol/L (136-145); Total Bilirubin 0.3 mg/dL (0.15-1.2); Total Protein 7.2 g/dL (6.6-8.7)
[2023-12-08] MEDS: levalbuterol 1.25 mg/3 mL Neb INHALATION (10:27)
[2023-12-08] MEDS: FUROsemide 10 mg/mL SDV 4mL 40 MG IVP ×2 (11:10→20:14)
--- NOTE | 2023-12-08 11:15 | PC.NURSE ---
PER VERBAL ORDERS FROM DR. GODWIN, TARGET HEART RATE WHILE ON THE CARDIZEM DRIP IS BELOW 100BPM.
[2023-12-08] MEDS: dilTIAZem 100 MG in sodium chloride 0.9% (add-van) 100 ML IV (11:18)
--- NOTE | 2023-12-08 11:42 | P.HP_ITS ---
Providers/Chief Complaint 2 Admitting Physician: Jason England MD Primary Care Provider: Stoney Jo Chief Complaint: Retaining Fluids History of Present Illness Jes Durbin is a 88 year old female presents with shortness of breath to the ED. Recently discharged on 12/04 with CHF, Afib. Some difficulties with control of heart rate with kike with Metoprolol at higher doses. Currently taking 37.5mg BID. Heart rate at home over 100 resting. Some coughing. No fever. Occasional sputum production. No hemoptysis. No vomiting. Denies chest pain. Review of Systems 2 General: Reports: 10 or more systems reviewed and unremarkable except in HPI and below Card: Reports: palpitations and dyspnea on exertion; Denies: chest pain Resp: Reports: dyspnea and productive cough GI: Denies: abdominal pain, nausea, vomiting, hematochezia or melena Medications/Allergies Home Medications Medication Instructions Recorded Confirmed Last Taken Type omeprazole 40 mg capsule,delayed 40 mg PO QAM 08/21/23 12/08/23 12/08/23 History release trazodone 150 mg tablet 150 mg PO QPM 08/21/23 12/08/23 12/07/23 History albuterol sulfate 90 mcg/actuation 1 inh inhalation Q6H PRN shortness 10/10/23 12/08/23 Unknown Rx aerosol inhaler (ProAir HFA) of breath or wheezing #8.5 grams apixaban 2.5 mg tablet (Eliquis) 2.5 mg PO BID 30 days #60 tabs 12/04/23 12/08/23 12/08/23 Rx furosemide 40 mg tablet 40 mg PO DAILY@0800 30 days #30 12/04/23 12/08/23 12/08/23 Rx tabs metoprolol tartrate 25 mg tablet 37.5 mg (1.5 x 25 mg) PO Q12H 30 12/04/23 12/08/23 12/08/23 Rx days #90 tabs potassium chloride 20 mEq 20 meq PO QAM 30 days #30 tabs 12/04/23 12/08/23 12/08/23 Rx tablet,extended release Allergies Allergy/AdvReac Type Severity Reaction Status Date / Time Penicillins Allergy Unknown Unknown Verified 12/08/23 08:57 PFSH Acute 2 PFSH: Medical History (Updated 02/19/24 @ 12:33 by Jason England MD) Atrial fibrillation Mitral regurgitation Coronary artery disease CHF exacerbation Diastolic congestive heart failure Aortic stenosis Surgical History S/P TAVR (transcatheter aortic valve replacement) History of coronary angiogram Social History Smoking and tobacco/nicotine status: never used tobacco/nicotine Second hand smoke exposure: No Alcohol intake: never Substance/Drug Use: never Lives independently: Yes Vitals/I&O/Wt Last Vital Signs Temp 97.4 F L 12/08/23 08:57 Pulse 120 H 12/08/23 11:36 Resp 16 12/08/23 10:24 BP 128/94 12/08/23 11:30 Pulse Ox 97 12/08/23 11:30 O2 Del Method Room Air 12/08/23 10:30 12/07/23 12/08/23 12/08/23 22:59 06:59 14:59 Intake Total 1.583 / 1.583 Balance 1.583 / 1.583 Weight last 48 hrs Weight 42.184 kg Physical Exam 2 Narrative: General exam NAD HEENT AT/NC PEERLA adentulous Neck no LAD, thyroegaly CV irreg, irreg, with 2/6 systolic murmur. Lungs Dimished BS bases, a few crackles Abd S positive bowel sounds. No obvious organomegaly. exam was deferred Extremities no cyanosis clubbing or edema, cap refill brisk Skin no rash Neuro no obvious focal deficits./NT, Data 12/08/23 09:32 12/08/23 09:32 Other Labs: LFTs demonstrate elevation of AST of 84, ALT 91, alk phos 193. Bilirubin is normal. Albumin and calcium are normal BNP is 10,040 Chest x-ray which I reviewed demonstrated bibasilar opacifications, likely representing atelectasis with small effusions. CTA performed December 01 demonstrated moderate bilateral pleural effusions and bibasilar mucous plugging/bronchiectasis A sputum culture in September demonstrated Pseudomonas, pansensitive. EKG demonstrates A-fib with RVR, normal axis, nonspecific ST-T wave changes. Poor R wave progression is noted. No ST elevation. By my read. Recent echocardiogram February 12 demonstrated preserved EF, moderate MR, bioprosthetic aortic valve A&P Assessment and plan (1) Atrial fibrillation: Patient presents with atrial fibrillation with rapid ventricular rate. This is been difficult to control. She has had metoprolol dose increase and decrease She is currently on a Cardizem drip. Titrate to heart rate less than 100 Continue apixaban 2.5 mg twice daily Cardiology consultation. She may require another antiarrhythmic for control. Observation to telemetry (2) Diastolic congestive heart failure: Patient has evidence of diastolic heart failure with elevated BNP, evidence of liver congestion, chest x-ray evidence of pleural effusions. She has received Lasix 40 mg IV once in the ER. Continue Lasix 40 mg IV every 12 hours BMP, magnesium daily No reason for repeat echo. She has had a recent echocardiogram. Wean oxygen as tolerated (3) Bronchiectasis: Patient has evidence of bronchiectasis on her most recent CT scan Previous sputum culture demonstrated Pseudomonas She has had increased sputum production. Will place on Cipro 500 mg twice daily Nebulized treatments with DuoNeb every 6 hours Add budesonide twice daily Repeat CBC tomorrow Plan History of recent TAVR Other medical problems as outlined in past medical history Full code currently Eliquis will be sufficient for DVT prophylaxis Protonix for GI prophylaxis Attestations 2 Medical Necessity Statement*: Will need less than 2 midnight stay for evaluation and treatment of atrial fibrillation with rapid ventricular rate and heart failure Diagnoses Atrial fibrillation I48.91 Diastolic congestive heart failure I50.30 Bronchiectasis J47.9 Time Spent (min) 54
[2023-12-08] MEDS: ipratropium-albuterol 3 mL Neb INHALATION ×2 (14:00→20:47)
--- NOTE | 2023-12-08 14:25 | P.CONIM_ITS ---
Providers/Reason For Consult 2 Consulting Physician/Specialty*: Teja Rdz MD/ Cardiology Reason for Consult*: Congestive heart failure/ atrial fibrillation with RVR Requesting Physician: Dr England Attending Physician: Jason England MD Primary Care Provider: Stoney Jo History of Present Illness History of Present Illness Jes Durbin is a 88 year old female with recent TAVR who was admitted to hospital last week with CHF and A-fib with RVR. She came to hospital again with shortness of breath. NT proBNP is elevated. She is in A-fib with RVR. She was discharged home at higher dose of metoprolol 50 twice daily however became bradycardic. Echo done last week showed normal LV systolic function. Review of Systems 2 General: Reports: 10 or more systems reviewed and unremarkable except in HPI and below Card: Reports: palpitations and dyspnea on exertion; Denies: chest pain Resp: Reports: dyspnea and productive cough GI: Denies: abdominal pain, nausea, vomiting, hematochezia or melena Medications/Allergies Home Medications Medication Instructions Recorded Confirmed Last Taken Type omeprazole 40 mg capsule,delayed 40 mg PO QAM 08/21/23 12/08/23 12/08/23 History release trazodone 150 mg tablet 150 mg PO QPM 08/21/23 12/08/23 12/07/23 History albuterol sulfate 90 mcg/actuation 1 inh inhalation Q6H PRN shortness 10/10/23 12/08/23 Unknown Rx aerosol inhaler (ProAir HFA) of breath or wheezing #8.5 grams apixaban 2.5 mg tablet (Eliquis) 2.5 mg PO BID 30 days #60 tabs 12/04/23 12/08/23 12/08/23 Rx furosemide 40 mg tablet 40 mg PO DAILY@0800 30 days #30 12/04/23 12/08/23 12/08/23 Rx tabs metoprolol tartrate 25 mg tablet 37.5 mg (1.5 x 25 mg) PO Q12H 30 12/04/23 12/08/23 12/08/23 Rx days #90 tabs potassium chloride 20 mEq 20 meq PO QAM 30 days #30 tabs 12/04/23 12/08/23 12/08/23 Rx tablet,extended release Allergies Allergy/AdvReac Type Severity Reaction Status Date / Time Penicillins Allergy Unknown Unknown Verified 12/08/23 08:57 Current Medications Generic Name Dose Route Start Last Admin Trade Name Freq PRN Reason Stop Dose Admin Diltiazem HCl 100 mg/ Sodium 100 mls @ 0 mls/hr 12/08/23 11:15 12/08/23 11:37 Chloride IV 7.5 mg/hr .Q0M ELEUTERIO 7.5 mls/hr Titration Protocol Per Protocol PFSH Acute 2 PFSH: Medical History Atrial fibrillation Mitral regurgitation Coronary artery disease CHF exacerbation Diastolic congestive heart failure Aortic stenosis Surgical History S/P TAVR (transcatheter aortic valve replacement) History of coronary angiogram Social History Smoking and tobacco/nicotine status: never used tobacco/nicotine Second hand smoke exposure: No Alcohol intake: never Substance/Drug Use: never Lives independently: Yes Vitals/I&O/Wt Last Vital Signs Temp 97.6 F 12/08/23 11:56 Pulse 69 12/08/23 13:40 Resp 16 12/08/23 13:40 BP 118/63 12/08/23 12:40 Pulse Ox 96 12/08/23 13:40 O2 Del Method Room Air 12/08/23 13:40 12/07/23 12/08/23 12/08/23 22:59 06:59 14:59 Intake Total 1.583 / 1.583 Balance 1.583 / 1.583 Weight last 48 hrs Weight 93 lb Physical Exam 2 Narrative: GENERAL: Patient is alert, awake and oriented x3. [] NECK: No jugular vein distension. [] HEENT: No cyanosis. No icterus. No pallor. [] HEART: Regular S1 and S2. Grade 2/6 diastolic murmur LUNGS: Bilateral crackles CENTRAL NERVOUS SYSTEM: Grossly nonfocal. [] EXTREMITIES: Lower extremities with 1+ edema bilaterally. Data 12/09/23 03:08 12/09/23 08:40 A&P Assessment and plan (1) Atrial fibrillation: (2) Diastolic congestive heart failure: (3) Bronchiectasis: Plan Patient likely has underlying sick sinus syndrome. With high dose of metoprolol she had bradycardia. It was downtitrated to 37.5 mg twice daily and has RVR now. I had a detailed discussion with her regarding permanent pacemaker placement as it will help control her heart rates without making her bradycardic. However she wants medical therapy. She has been put on Cardizem drip. Can down titrated and uptitrate metoprolol. She will need event monitor as outpatient to assess bradycardic episodes.. She is staying in rapid ventricular rate as below. Can resume anticoagulation. Continue IV diuresis as she is volume overloaded. Lasix 40 mg twice daily IV. Close I&O's. Monitor renal function. Thank you for involving us with care of this patient. We will continue to follow. Please call with questions. Consult Attestations 2 Medical Necessity Statement: Care expected to cross 2 midnights. Coding Level of Care Code Acute Code for [facility] Diagnoses Atrial fibrillation I48.91 Diastolic congestive heart failure I50.30 Bronchiectasis J47.9
[2023-12-08 18:08] LABS: Potassium 4.4 mmol/L (3.5-5.1)
[2023-12-08] MEDS: heparin 5,000 unit/mL INJ 1 mL 5000 UNIT SUBCUT (18:09)
[2023-12-08] MEDS: metoprolol tartrate 25 mg Tablet 37.5 MG PO (18:10)
[2023-12-08] MEDS: ciprofloxacin 500 mg Tablet PO (20:10)
[2023-12-08] MEDS: budesonide 0.5 mg/2 mL Neb INHALATION (20:47)
[2023-12-08] MEDS: trazodone 150 mg Tablet PO (21:18)
[2023-12-08] MEDS: acetaminophen 325 mg Tablet 650 MG PO (23:52)
--- NOTE | 2023-12-08 23:56 | PC.NURSE ---
Spoke with regarding patients complaint of restless legs, unable to get comfortable and does not have any medication ordered for it. Asking for something for treatment of restless leg. said not as medications do not treat it acutely. Will continue to monitor for now, gave patient PRN tylenol to see if that might help with discomfort..
[2023-12-09] VITALS (22 sets, daily range): BP systolic 102–118; BP diastolic 48–77; PULSE 68–122; RESP 16–29; TEMP 36.4–36.8; O2SAT 88–99
[2023-12-09 03:49] LABS: Basophils # 0.1 10^3/uL (0.0-0.1); Eosinophils # 0.2 10^3/uL (0.0-0.8); Eosinophils % 3.1 %; Lymphocytes # 1.8 10^3/uL (0.8-4.8); Lymphocytes % 25.1 %; Mean Corpuscular Hemoglobin 24.6 pg (27-33); Mean Corpuscular Volume 82.2 fl (85-98); Mean Platelet Volume 10.1 fL (7.4-10.4); Monocytes # 0.8 10^3/uL (0.2-0.9); Monocytes % 10.5 %; Neutrophils # 4.33 10^3/uL (1.8-7.7); Nucleated Red Blood Cells % 0 %; Platelet Count 271 10^3/cmm (157-399); Red Blood Count 3.53 10^6/uL (3.85-5.65); Red Cell Distribution Width 14.7 % (12.1-15.1); White Blood Count 7.21 10^3/uL (3.29-11.43)
[2023-12-09] MEDS: heparin 5,000 unit/mL INJ 1 mL 5000 UNIT SUBCUT (03:51)
[2023-12-09] MEDS: metoprolol tartrate 25 mg Tablet 37.5 MG PO (03:51)
[2023-12-09 04:09] LABS: Anion Gap 16.4 (5-19); Blood Urea Nitrogen 41 mg/dL (8-23); Calcium 9.2 mg/dL (8.5-10.5); Carbon Dioxide 23 mmol/L (22-29); Chloride 103 mmol/L (98-107); Creatinine Clr Calc Pharmacy 27.1177; Glucose 99 mg/dL (65-115); Magnesium 2.4 mg/dL (1.7-2.3); Osmolality Calculated 296 mOsm/kg (285-295); Potassium 4.4 mmol/L (3.5-5.1); Sodium 138 mmol/L (136-145)
[2023-12-09] MEDS: budesonide 0.5 mg/2 mL Neb INHALATION ×2 (08:10→20:36)
[2023-12-09] MEDS: ipratropium-albuterol 3 mL Neb INHALATION ×3 (08:10→20:36)
--- NOTE | 2023-12-09 08:53 | P.PN_ITS ---
Subjective 2 Subjective: Ada reports she feels a little less short of breath. Still gets significantly winded with ambulation. Medications: Reviewed: Yes Vitals/I&O/Wt Last Vital Signs Temp 98.2 F 12/09/23 07:15 Pulse 103 H 12/09/23 08:16 Resp 16 12/09/23 08:10 BP 114/74 12/09/23 07:15 Pulse Ox 96 12/09/23 08:10 O2 Del Method Room Air 12/09/23 08:10 12/08/23 12/09/23 12/09/23 22:59 06:59 14:59 Intake Total 63.125 / 64.708 22.125 / 86.833 Output Total 600 / 600 Balance -536.875 / -535.292 22.125 / -513.167 Weight last 48 hrs Weight 42.774 kg Weight 42.184 kg Weight 42.184 kg Physical Exam 2 Narrative: General exam NAD Neck no LAD, thyroegaly CV irreg, irreg, with 2/6 systolic murmur. Lungs Dimished BS bases, a few crackles. Occasional wheezes Abd S positive bowel sounds. No obvious organomegaly. Extremities no cyanosis clubbing or edema, cap refill brisk Data 12/09/23 03:08 12/09/23 03:08 A&P Assessment and plan (1) Atrial fibrillation: Patient presents with atrial fibrillation with rapid ventricular rate. This is been difficult to control. She has had metoprolol dose increase and decrease Cardizem drip has been decreased, but heart rate still somewhat high Apixaban is being held in case pacemaker might be necessary Cardiology consultation appreciated. She is trying to avoid a pacemaker. They recommend increasing metoprolol, consider event monitor as an outpatient. Changed to regular admission. Heart rate still not under control. Needs further diuresis as well as adjustment of medications for heart rate. (2) Diastolic congestive heart failure: Patient has evidence of diastolic heart failure with elevated BNP, evidence of liver congestion, chest x-ray evidence of pleural effusions. Repeat LFTs tomorrow She has received Lasix 40 mg IV once in the ER. Continue Lasix 40 mg IV every 12 hours BMP, magnesium daily No reason for repeat echo. She has had a recent echocardiogram. Wean oxygen as tolerated Has diuresed about 500 cc (3) Bronchiectasis: Patient has evidence of bronchiectasis on her most recent CT scan Previous sputum culture demonstrated Pseudomonas She has had increased sputum production. Will place on Cipro 500 mg twice daily Nebulized treatments with DuoNeb every 6 hours Continue budesonide twice daily Repeat CBC tomorrow Plan History of recent TAVR Other medical problems as outlined in past medical history Full code currently Heparin currently for DVT prophylaxis Protonix for GI prophylaxis Attestations 2 Medical Necessity Statement*: Needs continued hospital stay, secondary to need to adjust medication for control of A-fib, close monitoring to make sure no bradycardia concerns appear, and close monitoring while further diuresis occurs with IV Lasix. Diagnoses Atrial fibrillation I48.91 Diastolic congestive heart failure I50.30 Bronchiectasis J47.9 Time Spent (min) 22
[2023-12-09] MEDS: ciprofloxacin 500 mg Tablet PO ×2 (09:10→20:39)
[2023-12-09] MEDS: pantoprazole DR 40 mg Tablet PO (09:10)
[2023-12-09] MEDS: aspirin 81 mg EC Tablet PO (09:10)
[2023-12-09] MEDS: FUROsemide 10 mg/mL SDV 4mL 40 MG IVP ×2 (09:11→21:46)
[2023-12-09] MEDS: metoprolol tartrate 25 mg Tablet 12.5 MG PO (09:11)
--- NOTE | 2023-12-09 09:28 | PC.CHAP ---
Pastoral Care Encounter/Spiritual Assessment Type of Contact [] Declined kitchen food assembler visit [] Patient/Family/Request visit [] Outpatient visit [] Follow-up visit [] Physician referral [] Code/Alert [x] Routine visit [] Staff referral [] Actively dying [] Patient sleeping [] Family support [] [] Out of room [] Palliative care [] [] Receiving care in room [] Pre-surgical visit [] Trauma [] Long length of stay [] ICU visit [] Other: Relational/Emotional Strength [x] Patient feels connected with others/family/visitors/staff [] Distress [] Loneliness/isolation [] Abandonment Spirituality of Patient [x] Person of Shahida [] Attends Mosque of their Shahida [x] Believes in Prayer [] Reads Bible or Lutheran materials [] There are Spiritual issues to be addressed Wire Puller Interventions [x] Prayer [x] Active listening [] Non-anxious presence [x] Spiritual/emotional support [] Crisis/trauma care [] Spiritual counseling [] Bereavement support [] Provided bereavement packet [] Provided Bible/devotional materials [] Provided toy/stuffed animal, coloring book to patient or family member [] Provided Communion [] Anointing/[place] [] Salvation [x] Completed spiritual assessment [] Other: Impact on Illness or Injury [] Angry [] Fearful [] Anxious [] Often cries [] Exhaustion [] Unable to work [] Unable to attend methodist [] Unable to walk/stand [] Unable to read [] Unable to drive [] Unable to eat/drink [] Unable to sleep [] Unable to be with family [] Patient intubated [] Other: Summary Time spent with patient 5 min
[2023-12-09 09:40] LABS: Alanine Aminotransferase 77 U/L (0-33); Albumin Level 3.7 g/dL (3.5-5.2); Alkaline Phosphatase 166 U/L (35-105); Anion Gap 14.2 (5-19); Aspartate Amino Transferase 54 U/L (0-32); Blood Urea Nitrogen 36 mg/dL (8-23); Calcium 9.1 mg/dL (8.5-10.5); Carbon Dioxide 26 mmol/L (22-29); Chloride 103 mmol/L (98-107); Creatinine Clr Calc Pharmacy 30.2917; Globulin 3.3 g/dL (1.3-4.6); Glucose 116 mg/dL (65-115); Osmolality Calculated 297 mOsm/kg (285-295); Potassium 4.2 mmol/L (3.5-5.1); Sodium 139 mmol/L (136-145); Total Bilirubin 0.3 mg/dL (0.15-1.2)
--- NOTE | 2023-12-09 10:27 | P.PN_ITS ---
Subjective 2 Subjective: Patient is doing better. However heart rates are still uncontrolled. Vitals/I&O/Wt Last Vital Signs Temp 98.2 F 12/09/23 07:15 Pulse 103 H 12/09/23 08:16 Resp 16 12/09/23 08:10 BP 114/74 12/09/23 07:15 Pulse Ox 96 12/09/23 08:10 O2 Del Method Room Air 12/09/23 08:10 12/08/23 12/09/23 12/09/23 22:59 06:59 14:59 Intake Total 63.125 / 64.708 22.125 / 86.833 200 / 200 Output Total 600 / 600 Balance -536.875 / -535.292 22.125 / -513.167 200 / 200 Weight last 48 hrs Weight 94 lb 4.8 oz Weight 93 lb Weight 93 lb Physical Exam 2 Narrative: GENERAL: Patient is alert, awake and oriented x3. [] NECK: No jugular vein distension. [] HEENT: No cyanosis. No icterus. No pallor. [] HEART: Regular S1 and S2. Grade 2/6 diastolic murmur LUNGS: Bilateral crackles CENTRAL NERVOUS SYSTEM: Grossly nonfocal. [] EXTREMITIES: Lower extremities with 1+ edema bilaterally. Data 12/10/23 03:44 12/10/23 03:44 A&P Assessment and plan (1) Atrial fibrillation: (2) Diastolic congestive heart failure: (3) Bronchiectasis: Plan Patient's heart rate stays uncontrolled. Cardizem drip was weaned off. Uptitrate metoprolol to 50 mg twice daily. We will start amiodarone gtt. If converts to normal rhythm, can down titrate metoprolol at that time. Resume Eliquis. Continue IV diuresis. Close I&O's. Monitor renal function. Thank you for involving us with care of this patient. We will continue to follow. Please call with questions. Attestations 2 Medical Necessity Statement*: Care expected to cross 2 midnights. Coding Level of Care Code Acute Code for [facility] Diagnoses Atrial fibrillation I48.91 Diastolic congestive heart failure I50.30 Bronchiectasis J47.9
[2023-12-09] MEDS: enoxaparin 40 mg/0.4 mL Syringe SUBCUT (11:43)
[2023-12-09] MEDS: apixaban 5 mg Tablet PO (11:43)
[2023-12-09] MEDS: metoprolol tartrate 25 mg Tablet 50 MG PO (18:08)
[2023-12-09] MEDS: trazodone 150 mg Tablet 200 MG PO (21:45)
[2023-12-10] VITALS (12 sets, daily range): BP systolic 93–133; BP diastolic 69–95; PULSE 84–112; RESP 18–29; TEMP 36.4–37; O2SAT 93–98; BMI 18.3
[2023-12-10] MEDS: apixaban 5 mg Tablet PO ×3 (00:07→21:08)
[2023-12-10] MEDS: acetaminophen 325 mg Tablet 650 MG PO (01:25)
[2023-12-10 04:16] LABS: Basophils # 0.1 10^3/uL (0.0-0.1); Basophils % 0.7 %; Eosinophils # 0.2 10^3/uL (0.0-0.8); Eosinophils % 1.8 %; Hematocrit 31.2 % (36-47); Lymphocytes # 1.4 10^3/uL (0.8-4.8); Lymphocytes % 15.3 %; Mean Corpuscular HGB Conc 29.5 g/dL (30-55); Mean Corpuscular Hemoglobin 24.5 pg (27-33); Mean Platelet Volume 9.9 fL (7.4-10.4); Monocytes # 0.9 10^3/uL (0.2-0.9); Monocytes % 10.2 %; Neutrophils # 6.58 10^3/uL (1.8-7.7); Neutrophils % 71.6 %; Nucleated Red Blood Cells % 0 %; Platelet Count 269 10^3/cmm (157-399); Red Blood Count 3.76 10^6/uL (3.85-5.65); Red Cell Distribution Width 14.6 % (12.1-15.1)
[2023-12-10 04:38] LABS: Blood Urea Nitrogen 48 mg/dL (8-23); Calcium 9.1 mg/dL (8.5-10.5); Carbon Dioxide 24 mmol/L (22-29); Chloride 98 mmol/L (98-107); Creatinine Clr Calc Pharmacy 22.7188; Glucose 122 mg/dL (65-115); Osmolality Calculated 294 mOsm/kg (285-295); Sodium 135 mmol/L (136-145)
[2023-12-10] MEDS: metoprolol tartrate 25 mg Tablet 50 MG PO ×2 (05:14→18:03)
--- NOTE | 2023-12-10 07:46 | P.PN_ITS ---
Subjective 2 Subjective: Patient's heart rates have improved however still around 100 bpm. On IV amiodarone Vitals/I&O/Wt Last Vital Signs Temp 97.6 F 12/10/23 05:29 Pulse 92 12/10/23 05:43 Resp 26 H 12/10/23 05:29 BP 128/69 12/10/23 05:29 Pulse Ox 94 12/10/23 05:29 O2 Del Method Room Air 12/09/23 20:40 12/09/23 12/10/23 12/10/23 22:59 06:59 14:59 Intake Total 400 / 800 4.983 / 804.983 Output Total 1100 / 1100 5 / 1105 Balance -700 / -300 -0.017 / -300.017 Weight last 48 hrs Weight 94 lb 4 oz Weight 94 lb 4.8 oz Weight 93 lb Weight 93 lb Physical Exam 2 Narrative: GENERAL: Patient is alert, awake and oriented x3. [] NECK: No jugular vein distension. [] HEENT: No cyanosis. No icterus. No pallor. [] HEART: Regular S1 and S2. Grade 2/6 diastolic murmur LUNGS: Bilateral crackles CENTRAL NERVOUS SYSTEM: Grossly nonfocal. [] EXTREMITIES: Lower extremities with 1+ edema bilaterally. Data 12/10/23 03:44 12/11/23 03:03 A&P Assessment and plan (1) Atrial fibrillation: (2) Diastolic congestive heart failure: (3) Bronchiectasis: Plan Patient's heart rates have improved. Can switch amiodarone to 400 mg twice daily for 7 days and then 200 mg daily. Continue metoprolol 50 mg twice daily. Renal function slightly worsened today. Can switch to p.o. Lasix. Close I&O's. Monitor renal function. Continue Eliquis Thank you for involving us with care of this patient. We will continue to follow. Please call with questions. Attestations 2 Medical Necessity Statement*: Care expected to cross 2 midnights. Coding Level of Care Code Acute Code for [facility]wd Diagnoses Atrial fibrillation I48.91 Diastolic congestive heart failure I50.30 Bronchiectasis J47.9
[2023-12-10] MEDS: budesonide 0.5 mg/2 mL Neb INHALATION ×2 (08:57→20:44)
[2023-12-10] MEDS: ipratropium-albuterol 3 mL Neb INHALATION ×4 (08:58→20:44)
[2023-12-10] MEDS: ciprofloxacin 500 mg Tablet PO ×2 (09:15→21:08)
[2023-12-10] MEDS: pantoprazole DR 40 mg Tablet PO (09:15)
[2023-12-10] MEDS: FUROsemide 40 mg Tablet 60 MG PO (09:15)
--- NOTE | 2023-12-10 10:11 | P.PN_ITS ---
Subjective 2 Subjective: States she feels okay this morning. Is not sure how she will feel when she gets up and around. Heart rate under better control. Slept a little bit last night, but still not ideal. Medications: Reviewed: Yes Vitals/I&O/Wt Last Vital Signs Temp 98.6 F 12/10/23 09:50 Pulse 84 12/10/23 09:50 Resp 29 H 12/10/23 09:50 BP 128/95 12/10/23 09:50 Pulse Ox 98 12/10/23 09:50 O2 Del Method Room Air 12/10/23 08:00 12/09/23 12/10/23 12/10/23 22:59 06:59 14:59 Intake Total 400 / 800 4.983 / 804.983 120 / 120 Output Total 1100 / 1100 5 / 1105 Balance -700 / -300 -0.017 / -300.017 120 / 120 Weight last 48 hrs Weight 42.751 kg Weight 42.774 kg Weight 42.184 kg Physical Exam 2 Narrative: General exam NAD Neck no LAD, thyroegaly CV irreg, irreg, with 2/6 systolic murmur. Lungs coarse breath sounds at the bases Abd S positive bowel sounds. No obvious organomegaly. Extremities no cyanosis clubbing or edema, cap refill brisk Data 12/10/23 03:44 12/10/23 03:44 A&P Assessment and plan (1) Atrial fibrillation: Patient presents with atrial fibrillation with rapid ventricular rate. This is been difficult to control. She has been placed on amiodarone drip, with improved control Continuing metoprolol 50 mg twice daily Apixaban has been restarted for anticoagulation Cardiology consultation appreciated. She is trying to avoid a pacemaker. I suspect will try to transition to oral amiodarone tonight. (2) Diastolic congestive heart failure: Patient has evidence of diastolic heart failure with elevated BNP, evidence of liver congestion, chest x-ray evidence of pleural effusions. She appears better compensated currently Changed to oral diuretic, discontinue IV Lasix No reason for repeat echo. She has had a recent echocardiogram. She is now off oxygen She diuresed total about 700 cc. BMP tomorrow (3) Bronchiectasis: Patient has evidence of bronchiectasis on her most recent CT scan Previous sputum culture demonstrated Pseudomonas She has had increased sputum production. Continue Cipro 500 mg twice daily Nebulized treatments with DuoNeb every 6 hours Continue budesonide twice daily Plan History of recent TAVR Other medical problems as outlined in past medical history Full code currently Eliquis currently for DVT prophylaxis Protonix for GI prophylaxis PT evaluation Attestations 2 Medical Necessity Statement*: Needs continued hospitalization for transition off IV amiodarone, continued adjustment of medications for heart failure and atrial fibrillation Diagnoses Atrial fibrillation I48.91 Diastolic congestive heart failure I50.30 Bronchiectasis J47.9 Time Spent (min) 23
[2023-12-10] MEDS: amiodarone 200 mg Tablet 400 MG PO (18:03)
[2023-12-10] MEDS: trazodone 150 mg Tablet 200 MG PO (21:08)
[2023-12-11] VITALS (11 sets, daily range): BP systolic 98–116; BP diastolic 42–75; PULSE 78–100; RESP 16–28; TEMP 36.6–37.1; O2SAT 94–98
[2023-12-11 04:03] LABS: Alanine Aminotransferase 41 U/L (0-33); Albumin Level 3.2 g/dL (3.5-5.2); Alkaline Phosphatase 136 U/L (35-105); Anion Gap 14.6 (5-19); Aspartate Amino Transferase 21 U/L (0-32); Blood Urea Nitrogen 33 mg/dL (8-23); Calcium 8.8 mg/dL (8.5-10.5); Carbon Dioxide 24 mmol/L (22-29); Chloride 100 mmol/L (98-107); Creatinine Clr Calc Pharmacy 30.2855; Globulin 2.9 g/dL (1.3-4.6); Glucose 103 mg/dL (65-115); Magnesium 2.2 mg/dL (1.7-2.3); Osmolality Calculated 288 mOsm/kg (285-295); Potassium 3.6 mmol/L (3.5-5.1); Sodium 135 mmol/L (136-145); Total Bilirubin 0.2 mg/dL (0.15-1.2); Total Protein 6.1 g/dL (6.6-8.7)
[2023-12-11] MEDS: metoprolol tartrate 25 mg Tablet 50 MG PO (04:48)
[2023-12-11] MEDS: budesonide 0.5 mg/2 mL Neb INHALATION ×2 (07:44→20:19)
[2023-12-11] MEDS: ipratropium-albuterol 3 mL Neb INHALATION ×3 (07:44→20:19)
--- NOTE | 2023-12-11 08:00 | P.PN_ITS ---
Subjective 2 Subjective: Patient switched to PO amiodarone. Heart rates better controlled. Still in Afib Vitals/I&O/Wt Last Vital Signs Temp 97.7 F 12/10/23 20:00 Pulse 89 12/11/23 07:48 Resp 18 12/11/23 07:48 BP 102/69 12/11/23 04:00 Pulse Ox 96 12/11/23 07:48 O2 Del Method Room Air 12/11/23 07:48 12/10/23 12/11/23 12/11/23 22:59 06:59 14:59 Intake Total 127.15 / 247.15 Output Total 500 / 500 350 / 850 Balance -372.85 / -252.85 -350 / -602.85 Weight last 48 hrs Weight 95 lb 3.2 oz Weight 94 lb 4 oz Physical Exam 2 Narrative: GENERAL: Patient is alert, awake and oriented x3. [] NECK: No jugular vein distension. [] HEENT: No cyanosis. No icterus. No pallor. [] HEART: Regular S1 and S2. Grade 2/6 diastolic murmur LUNGS: Bilateral crackles CENTRAL NERVOUS SYSTEM: Grossly nonfocal. [] EXTREMITIES: Lower extremities with 1+ edema bilaterally. Data 12/12/23 03:17 12/12/23 03:17 A&P Assessment and plan (1) Atrial fibrillation: (2) Diastolic congestive heart failure: (3) Bronchiectasis: Plan Continue amiodarone 400 mg twice daily. Continue metoprolol 50 mg twice daily. Once he converts back to normal rhythm, we may have to downtitrate dose of metoprolol. Continue eliquis Thank you for involving us with care of this patient. We will continue to follow. Please call with questions. Attestations 2 Medical Necessity Statement*: Care expected to cross 2 midnights. Coding Level of Care Code Acute Code for [facility] Diagnoses Atrial fibrillation I48.91 Diastolic congestive heart failure I50.30 Bronchiectasis J47.9
[2023-12-11] MEDS: ciprofloxacin 500 mg Tablet PO ×2 (09:04→19:59)
[2023-12-11] MEDS: pantoprazole DR 40 mg Tablet PO (09:04)
[2023-12-11] MEDS: amiodarone 200 mg Tablet 400 MG PO ×2 (09:04→17:59)
[2023-12-11] MEDS: apixaban 5 mg Tablet PO ×2 (09:04→19:59)
[2023-12-11] MEDS: FUROsemide 40 mg Tablet 60 MG PO (09:04)
--- NOTE | 2023-12-11 09:10 | P.PN_ITS ---
Subjective 2 Subjective: Ada reports she is feeling okay today. No chest pain. Less short of breath. Heart rate still above 100 at times. Medications: Reviewed: Yes Vitals/I&O/Wt Last Vital Signs Temp 97.7 F 12/10/23 20:00 Pulse 89 12/11/23 07:48 Resp 18 12/11/23 07:48 BP 102/69 12/11/23 04:00 Pulse Ox 96 12/11/23 07:48 O2 Del Method Room Air 12/11/23 07:48 12/10/23 12/11/23 12/11/23 22:59 06:59 14:59 Intake Total 127.15 / 247.15 Output Total 500 / 500 350 / 850 Balance -372.85 / -252.85 -350 / -602.85 Weight last 48 hrs Weight 43.182 kg Weight 42.751 kg Physical Exam 2 Narrative: General exam NAD Neck no LAD, thyroegaly CV irreg, irreg, with 2/6 systolic murmur. Heart rate 110 when I am in the room Lungs coarse breath sounds at the bases Abd S positive bowel sounds. No obvious organomegaly. Extremities no cyanosis clubbing or edema, cap refill brisk Data 12/10/23 03:44 12/11/23 03:03 A&P Assessment and plan (1) Atrial fibrillation: Patient presents with atrial fibrillation with rapid ventricular rate. This is been difficult to control. She has been placed on amiodarone drip, with improved control. This was converted to amiodarone 400 mg twice daily Increase metoprolol to 75 mg twice daily Apixaban has been restarted for anticoagulation Cardiology consultation appreciated. She is trying to avoid a pacemaker. (2) Diastolic congestive heart failure: Patient has evidence of diastolic heart failure with elevated BNP, evidence of liver congestion, chest x-ray evidence of pleural effusions. She appears better compensated currently Continue oral Lasix No reason for repeat echo. She has had a recent echocardiogram. She is now off oxygen She continues to diurese some CBC, BMP tomorrow (3) Bronchiectasis: Patient has evidence of bronchiectasis on her most recent CT scan Previous sputum culture demonstrated Pseudomonas She has had increased sputum production. Continue Cipro 500 mg twice daily Nebulized treatments with DuoNeb every 6 hours Continue budesonide twice daily Plan History of recent TAVR Other medical problems as outlined in past medical history Full code currently Eliquis currently for DVT prophylaxis Protonix for GI prophylaxis PT evaluation Attestations 2 Medical Necessity Statement*: Needs continued hospitalization for adjustment of medication secondary to atrial fibrillation with rapid ventricular rate Diagnoses Atrial fibrillation I48.91 Diastolic congestive heart failure I50.30 Bronchiectasis J47.9
[2023-12-11] MEDS: metoprolol tartrate 25 mg Tablet PO (09:30)
[2023-12-11] MEDS: trazodone 150 mg Tablet 200 MG PO (17:58)
[2023-12-11] MEDS: metoprolol tartrate 25 mg Tablet 75 MG PO (19:59)
--- NOTE | 2023-12-11 22:23 | PC.NURSE ---
Patient has converted to NSR at 221 with a heart rate at 60. Patient received 150mg of trazodone at 1999 and is c/o feeling fidgety, restless. Patient is requesting something to help her nerves and to help her sleep. Informed Dr Rodney of patient change and request.
[2023-12-12] VITALS: BP 106/52; PULSE 59; RESP 16; TEMP 36.4; O2SAT 97
[2023-12-12 02:41] VITALS: PULSE 80; RESP 16; O2SAT 98
[2023-12-12 03:51] LABS: Basophils % 0.4 %; Eosinophils # 0.2 10^3/uL (0.0-0.8); Eosinophils % 2.2 %; Hematocrit 26.3 % (36-47); Lymphocytes # 1.2 10^3/uL (0.8-4.8); Lymphocytes % 15.6 %; Mean Corpuscular HGB Conc 30.4 g/dL (30-55); Mean Corpuscular Hemoglobin 24.5 pg (27-33); Mean Corpuscular Volume 80.4 fl (85-98); Mean Platelet Volume 10.3 fL (7.4-10.4); Monocytes # 0.8 10^3/uL (0.2-0.9); Monocytes % 11.1 %; Neutrophils # 5.23 10^3/uL (1.8-7.7); Neutrophils % 70.4 %; Nucleated Red Blood Cells % 0 %; Platelet Count 233 10^3/cmm (157-399); Red Blood Count 3.27 10^6/uL (3.85-5.65); Red Cell Distribution Width 14.7 % (12.1-15.1); White Blood Count 7.42 10^3/uL (3.29-11.43)
[2023-12-12 04:00] VITALS: BP 118/62; PULSE 69; RESP 26; TEMP 36.7; O2SAT 96
[2023-12-12 04:17] LABS: Anion Gap 14.5 (5-19); Blood Urea Nitrogen 30 mg/dL (8-23); Calcium 8.3 mg/dL (8.5-10.5); Carbon Dioxide 26 mmol/L (22-29); Chloride 99 mmol/L (98-107); Creatinine Clr Calc Pharmacy 27.3627; Glucose 107 mg/dL (65-115); Osmolality Calculated 289 mOsm/kg (285-295); Potassium 3.5 mmol/L (3.5-5.1); Sodium 136 mmol/L (136-145)
[2023-12-12 06:29] VITALS: PULSE 65
--- NOTE | 2023-12-12 07:34 | P.PN_ITS ---
Subjective 2 Subjective: Patient is doing well. No chest pain. Heart rate controlled. Vitals/I&O/Wt Last Vital Signs Temp 98.1 F 12/12/23 04:00 Pulse 65 12/12/23 06:29 Resp 26 H 12/12/23 04:00 BP 118/62 12/12/23 04:00 Pulse Ox 96 12/12/23 04:00 O2 Del Method Room Air 12/12/23 04:00 12/11/23 12/12/23 12/12/23 22:59 06:59 14:59 Intake Total 450 / 570 300 / 870 Output Total 900 / 1250 Balance -450 / -680 300 / -380 Weight last 48 hrs Weight 96 lb Weight 95 lb 3.2 oz Physical Exam 2 Narrative: GENERAL: Patient is alert, awake and oriented x3. [] NECK: No jugular vein distension. [] HEENT: No cyanosis. No icterus. No pallor. [] HEART: Regular S1 and S2. Grade 2/6 diastolic murmur LUNGS: Bilateral crackles CENTRAL NERVOUS SYSTEM: Grossly nonfocal. [] EXTREMITIES: Lower extremities with 1+ edema bilaterally. Data 12/12/23 03:17 12/12/23 03:17 A&P Assessment and plan (1) Atrial fibrillation: (2) Diastolic congestive heart failure: (3) Bronchiectasis: Plan Patient in sinus rhythm. Continue amiodarone 200 mg twice daily. Down titrate metoprolol to 25 mg twice daily. Thank you for involving us with care of this patient. Patient is stable to be discharged from cardiology standpoint. Please call with questions. Attestations 2 Medical Necessity Statement*: Care expected to cross 2 midnights. Coding Level of Care Code Acute Code for [facility] Diagnoses Atrial fibrillation I48.91 Diastolic congestive heart failure I50.30 Bronchiectasis J47.9
[2023-12-12 07:47] VITALS: BP 113/46; PULSE 68; RESP 16; TEMP 36.8
[2023-12-12] MEDS: pantoprazole DR 40 mg Tablet PO (08:30)
[2023-12-12] MEDS: ciprofloxacin 500 mg Tablet PO (08:30)
[2023-12-12] MEDS: apixaban 5 mg Tablet PO (08:30)
[2023-12-12] MEDS: metoprolol tartrate 25 mg Tablet PO (08:31)
[2023-12-12] MEDS: FUROsemide 40 mg Tablet 60 MG PO (08:31)
[2023-12-12] MEDS: amiodarone 200 mg Tablet 400 MG PO (08:31)
[2023-12-12] MEDS: ipratropium-albuterol 3 mL Neb INHALATION (08:39)
[2023-12-12] MEDS: budesonide 0.5 mg/2 mL Neb INHALATION (08:39)
[2023-12-12 08:40] VITALS: PULSE 67; RESP 16; O2SAT 96
--- NOTE | 2023-12-12 08:59 | PC.SOCIAL ---
IMM Update pg 2 of IMM updated and reviewed w/ patient. Copy provided and copy dated, initialed and placed in chart.
--- NOTE | 2023-12-12 09:27 | P.DS_ITS ---
Discharge Providers Date of Admission: 12/09/23 08:03 Date of Discharge: December 12, 2023 Attending Provider at Admission: Jason England MD Attending Provider at Discharge: Jason England MD Primary Care Provider: Stoney Jo Diagnoses at Discharge Discharge Diagnosis (1) Atrial fibrillation: Status: Acute (2) Diastolic congestive heart failure: Status: Acute (3) Bronchiectasis: Status: Acute Reason for Visit Reason for Visit: Retaining Fluids Hospital Course Hospital Course Patient presented to the hospital on December 08, with atrial fibrillation with rapid ventricular rate, heart failure. There was also concern of bronchiectasis. She was placed on a Cardizem drip, and diuresis was initiated. She was placed on antibiotics consisting of Cipro secondary to last sputum culture demonstrating Pseudomonas. During her hospital stay she remained afebrile. Cardiology evaluated her and she was ultimately placed on an amiodar one drip. This was titrated to p.o., metoprolol dose adjusted, and she cardioverted the night of December 11. December 12 she was well compensated from a cardiac standpoint, heart rate was 65, and it was believed she could go home with an event monitor with further adjustment of medicines. She was anemic during her hospital stay, and iron will be started at discharge. She will have close follow-up with her primary care provider with a CBC and BMP on follow-up in 3 days as well as cardiology. She and her son were given opportunity ask questions, and agreed with the plan. Physical Exam Narrative: General exam no distress Neck is supple Cardiovascular regular rate and rhythm Lungs clear Abdomen soft Extremities no cyanosis clubbing or edema Discharge Data Studies Completed and Pending Completed Studies During Hospitalization Category Date Time Status XR chest 1V portable [id number] Stat Exams 12/08/23 08:50 Completed Radiology Impressions Chest X-Ray 12/08/23 08:50 IMPRESSION: Small bilateral pleural effusions with bibasilar airspace opacities, which may reflect atelectasis or pneumonia. Laboratory Results WBC 7.42 10^3/uL (3.29-11.43) 12/12/23 03:17 RBC 3.27 10^6/uL (3.85-5.65) L 12/12/23 03:17 Hgb 8.00 g/dL (11.27-16.99) L 12/12/23 03:17 Hct 26.3 % (36-47) L 12/12/23 03:17 MCV 80.4 fl (85-98) L 12/12/23 03:17 MCH 24.5 pg (27-33) L 12/12/23 03:17 MCHC 30.4 g/dL (30-55) 12/12/23 03:17 RDW 14.7 % (12.1-15.1) 12/12/23 03:17 Plt Count 233 10^3/cmm (157-399) 12/12/23 03:17 MPV 10.3 fL (7.4-10.4) 12/12/23 03:17 Neut % (Auto) 70.4 % 12/12/23 03:17 Lymph % (Auto) 15.6 % 12/12/23 03:17 [place] % (Auto) 11.1 % 12/12/23 03:17 Eos % (Auto) 2.2 % 12/12/23 03:17 Baso % (Auto) 0.4 % 12/12/23 03:17 Neut # (Auto) 5.23 10^3/uL (1.8-7.7) 12/12/23 03:17 Lymph # (Auto) 1.2 10^3/uL (0.8-4.8) 12/12/23 03:17 [place] # (Auto) 0.8 10^3/uL (0.2-0.9) 12/12/23 03:17 Eos # (Auto) 0.2 10^3/uL (0.0-0.8) 12/12/23 03:17 Baso # (Auto) 0.0 10^3/uL (0.0-0.1) 12/12/23 03:17 Nucleated RBC % (auto) 0 % 12/12/23 03:17 Nucleated RBCs # 0.0 /100WBC 12/12/23 03:17 Sodium 136 mmol/L (136-145) 12/12/23 03:17 Potassium 3.5 mmol/L (3.5-5.1) 12/12/23 03:17 Chloride 99 mmol/L (98-107) 12/12/23 03:17 Carbon Dioxide 26 mmol/L (22-29) 12/12/23 03:17 Anion Gap 14.5 (5-19) 12/12/23 03:17 BUN 30 mg/dL (8-23) H 12/12/23 03:17 Creatinine 1.0 mg/dL (0.5-0.9) H 12/12/23 03:17 GFR Calculation Not Reportable 12/12/23 03:17 Glucose 107 mg/dL (65-115) 12/12/23 03:17 Calculated Osmolality 289 mOsm/kg (285-295) 12/12/23 03:17 Calcium 8.3 mg/dL (8.5-10.5) L 12/12/23 03:17 Magnesium 2.2 mg/dL (1.7-2.3) 12/11/23 03:03 Total Bilirubin 0.2 mg/dL (0.15-1.2) 12/11/23 03:03 AST 21 U/L (0-32) 12/11/23 03:03 ALT 41 U/L (0-33) H 12/11/23 03:03 Alkaline Phosphatase 136 U/L (35-105) H 12/11/23 03:03 NT-Pro-B Natriuret Pep 06911 pg/mL (0-450) H 12/08/23 09:32 Total Protein 6.1 g/dL (6.6-8.7) L 12/11/23 03:03 Albumin 3.2 g/dL (3.5-5.2) L 12/11/23 03:03 Globulin 2.9 g/dL (1.3-4.6) 12/11/23 03:03 Vitals Last Vital Signs Temp 98.2 F 12/12/23 07:47 Pulse 67 12/12/23 08:40 Resp 16 12/12/23 08:40 BP 113/46 12/12/23 07:47 Pulse Ox 96 12/12/23 08:40 O2 Del Method Room Air 12/12/23 08:40 Discharge Plan Discharge Patient Disposition: Home Condition: Stable Prescriptions: New ciprofloxacin HCl 500 mg Tablet 500 mg PO BID@0900,2100 Qty: 6 0RF metoprolol tartrate 25 mg Tablet 25 mg PO Q12H Qty: 60 0RF amiodarone 200 mg tablet 200 mg PO BID Qty: 37 0RF Rx Instructions: 200 mg twice daily for 1 week then 200 mg daily furosemide 40 mg Tablet 60 mg PO DAILY@0800 Qty: 45 0RF ferrous sulfate 325 mg (65 mg iron) Tablet,Delayed Release (Dr/Ec) 325 mg PO BIDWM Qty: 60 0RF potassium chloride 10 mEq tablet extended release 10 meq PO DAILY Qty: 30 0RF Continued omeprazole 40 mg capsule,delayed release(DR/EC) 40 mg PO QAM trazodone 150 mg tablet 150 mg PO QPM albuterol sulfate [ProAir HFA] 90 mcg/actuation HFA aerosol inhaler 1 inh inhalation Q6H PRN (Reason: shortness of breath or wheezing) Qty: 8.5 0RF Eliquis 2.5 mg tablet 2.5 mg PO BID 30 Days Qty: 60 0RF Discontinued metoprolol tartrate 25 mg Tablet 37.5 mg PO Q12H 30 Days Qty: 90 0RF furosemide 40 mg Tablet 40 mg PO DAILY@0800 30 Days Qty: 30 0RF potassium chloride 20 mEq tablet extended release 20 meq PO QAM 30 Days Qty: 30 0RF Discharge Orders: Discharge Order (Routine); Ordered 12/12/23 Ordered By: Jason England Other Ambulatory Orders: MCT/Event Monitor 21 Days (Routine) Timeframe: 1 Day Facility: [facility] - Location: Radiology Ordered By: Jason England Referrals: Stoney Jo [Primary Care Provider] - 12/15/23 10:00 am (CBC, BMP on follow- up) Lily Cooper FNP [Nurse Practitioner] - 12/25/23 1:00 pm Discharge Diet: Cardiac Discharge Activity: Increase activity as tolerated Patient Instructions: Ciprofloxacin (By mouth) (Cipro), Iron Supplements (By mouth) (Duofer, Fe-20, Bifera, Chemo-Iron), Metoprolol (By mouth) (Lopressor, Toprol XL), Furosemide (By mouth) (Lasix), Amiodarone (By mouth) (Cordarone, Pacerone), Heart Failure (DC), CHF Stoplight, Opioid Safety Activity Restrictions/Additional Instructions: Take all medicine as prescribed Amiodarone should be 200 mg twice daily for a week then 200 mg once daily Event monitor on discharge CBC and BMP on follow-up with primary care provider Discharge Attestations Time Spent in Discharge Care*: greater than 30 min Quality Metrics Clinical Quality Measures [ No reported AMI, CVA or VTE this stay] Coding Level of Care Code 26200 Total time (in minutes) for Discharge: 43 Diagnoses Atrial fibrillation I48.91 Diastolic congestive heart failure I50.30 Bronchiectasis J47.9
[2023-12-12] MEDS: potassium chloride ER 10 mEq Tablet PO (09:47)
== END 2023-12-12 10:00 | disposition home or self-care (01) | DRG 309 ==
LOC: ER 09:48 → CSU 11:17
PROVIDERS: Admitting Provider Internal Medicine; Emergency Provider Family Medicine; PCP Family Medicine; Visit Provider Internal Medicine
DX: I48.20 Chronic atrial fibrillation, unspecified (principal); I50.32 Chronic diastolic (congestive) heart failure; Z79.01 Long term (current) use of anticoagulants; I25.10 Atherosclerotic heart disease of native coronary artery without angina pectoris; I34.0 Nonrheumatic mitral (valve) insufficiency; Z95.3 Presence of xenogenic heart valve; J47.9 Bronchiectasis, uncomplicated; D64.9 Anemia, unspecified; B96.5 Pseudomonas (aeruginosa) (mallei) (pseudomallei) as the cause of diseases classified elsewhere; K76.1 Chronic passive congestion of liver
CPT/HCPCS: 36415; 71045; 80048; 80053; 83735; 83880; 84132; 85025; 93005; 94640; 96372; 96374; 96375; 96376; 97161; 99285; A4222; G0378; J0283; J1644; J1650; J1940; J3490; J7614; J7626

== ENCOUNTER → 2023-12-25 13:23 | Outpatient (BNVA) | payer MEDICARE, SELFPAY | PROVIDERS: PCP Family Medicine; Visit Provider Nurse Practitioner Family | DX: I48.91 Unspecified atrial fibrillation (principal) | CPT/HCPCS: 93005; 99214 ==

== ENCOUNTER 2024-01-03 13:30 | Inpatient (IN) | payer MEDICARE, SELFPAY ==
[2024-01-03] VITALS (22 sets, daily range): BP systolic 129–193; BP diastolic 63–123; PULSE 63–77; RESP 14–26; TEMP 36.6–36.7; O2SAT 91–96; BMI 18.3; BMI 17.5
--- NOTE | 2024-01-03 13:59 | XRR_ITS ---
PROCEDURE INFORMATION: Exam: XR Chest Exam date and time: 01/03/2024 2:03 PM Age: 88 years old Clinical indication: Cough and dyspnea; Patient HX: SOB; Dyspnea; Cough TECHNIQUE: Imaging protocol: Radiologic exam of the chest. Views: 1 view. COMPARISON: CR XR chest 1V portable [id number] 12/08/2023 9:26 AM FINDINGS: Lungs: Patchy atelectasis involves both lung bases and there is a focus of nodular density in the lateral aspect of the right upper lung field. Both lungs demonstrate mild pulmonary edema. Pleural spaces: There are small bilateral pleural effusions. Heart/Mediastinum: Moderate cardiomegaly is noted along with a prosthetic aortic valve. Bones/joints: Unremarkable. XR/XR chest 1V portable [id number] IMPRESSION: 1. CHF with small bilateral pleural effusions 2. Focal area of nodularity in the lateral aspect of the right upper lung field. Could represent developing pneumonia. Could also represent fluid within the right matter fissure.
--- NOTE | 2024-01-03 14:00 | ECG_ITS ---
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 Measurements Intervals [place] Rate: 69 P: 80 [place]: 146 QRS: 10 QRSD: 128 T: 74 QT: 467 QTc: 502 Interpretive Statements SINUS RHYTHM LEFT BUNDLE BRANCH BLOCK [120+ ms QRS DURATION, 80+ ms Q/S IN V1/V2, 85+ ms R IN I/aVL/V5/V6] Compared to ECG 12/25/2023 13:29:04 Left bundle-branch block now present Intraventricular conduction delay no longer present Electronically Signed On 01-04-2024 21:34:06 CDT by Cesar Kessler M.D. [id number]
[2024-01-03 14:28] LABS: Basophils # 0.1 10^3/uL (0.0-0.1); Basophils % 0.6 %; Eosinophils % 0.2 %; Lymphocytes % 8.1 %; Mean Corpuscular Hemoglobin 24.8 pg (27-33); Mean Corpuscular Volume 82.6 fl (85-98); Mean Platelet Volume 8.9 fL (7.4-10.4); Monocytes # 1.2 10^3/uL (0.2-0.9); Monocytes % 9.4 %; Neutrophils # 10.13 10^3/uL (1.8-7.7); Neutrophils % 81.5 %; Nucleated Red Blood Cells % 0 %; Platelet Count 250 10^3/cmm (157-399); Red Blood Count 4.48 10^6/uL (3.85-5.65); Red Cell Distribution Width 17.4 % (12.1-15.1); White Blood Count 12.45 10^3/uL (3.29-11.43)
--- NOTE | 2024-01-03 14:30 | ED_ITS ---
HPI - SOB/Dyspnea 2 General: Chief Complaint: Shortness of Breath/Dyspnea Stated Complaint: sob Time Seen by Provider: 01/03/24 13:59 Source: patient Mode of arrival: ambulatory History of Present Illness: HPI Narrative: 88-year-old female who had a TAVR proced ure done on November 19, 2023 to the hospital in [place]. She is a couple of admissions for A-fib with RVR as well as for congestive heart failure since then. She also been treated for infectious causes most recently she seen outpatient physician was started on Zithromax she is completed the course that she still complaining shortness of breath worse when she lays down. One of the previous hospitalization did a CTA which did not show a PE but did show some bilateral mucous plugging and distal bronchioles. She is not currently on oxygen. She denies any fever sweats or chills she has had some nasal drainage but no productive cough MD elicited complaint: shortness of breath and cough Pertinent past history: congestive heart failure Onset (ago): day(s) Severity: mild Exacerbating factors: lying flat and exertion Relieving factors: upright position Known history of: congestive heart failure Associated symptoms: Reports cough and orthopnea; Deny abdominal pain, chest congestion, chest pain, diaphoresis, dizziness, extremity pain, fever(s), hemoptysis, lightheadedness, myalgias, nausea, palpitations, paresthesias, polydipsia, polyuria, rash, sense of impending doom, syncope or vomiting Treatment prior to arrival: none Review of Systems 2 Const: Denies: fever(s), chills or diaphoresis Card: Reports: dyspnea on exertion and orthopnea; Denies: chest pain, palpitations, lightheadedness or syncope Resp: Reports: dyspnea and non-productive cough; Denies: hemoptysis or chest congestion GI: Denies: abdominal pain, nausea or vomiting : Denies: dysuria, urinary frequency or urinary urgency Musc: Denies: neck pain, back pain or extremity pain Skin/Breast: Denies: rash Neuro: Denies: dizziness Endo: Denies: polyuria or polydipsia PFSH ED 2 PFSH: Medical History Atrial fibrillation Mitral regurgitation Coronary artery disease CHF exacerbation Diastolic congestive heart failure Aortic stenosis Surgical History S/P TAVR (transcatheter aortic valve replacement) History of coronary angiogram Social History Smoking and tobacco/nicotine status: never used tobacco/nicotine Second hand smoke exposure: No Alcohol intake: never Substance/Drug Use: never Lives independently: Yes Physical Exam 2 Const: GENERAL APPEARANCE: cooperative and comfortable O RIENTATION/CONSCIOUSNESS: Yes awake, Yes oriented to person, Yes oriented to place and Yes oriented to time HENMT: COMMON NORMALS: normocephalic, atraumatic and hearing grossly normal bilaterally HEAD & SCALP: normocephalic and atraumatic Resp: COMMON NORMALS: normal respiratory effort, No retractions and No use of accessory muscles AUSCULTATION: crackles Laterality: bilateral (Lower) and posterior Cardio: COMMON NORMALS: regular rate, regular rhythm and No murmurs present (Cardio) RATE: regular rate RHYTHM: regular rhythm GI: COMMON NORMALS: Soft to palpation and No hepatosplenomegaly present A USCULTATION: Yes normoactive bowel sounds PALPATION: Yes Soft to palpation, No Tenderness to palpation present (GI), No Guarding due to palpation present (GI) and Yes No hepatosplenomegaly present Extremity: COMMON NORMALS: normal to inspection, capillary refill normal, no clubbing, cyanosis or edema, no calf tenderness and no pedal edema Neuro: SENSORIUM/ORIENTATION: Yes oriented to person, Yes oriented to place and Yes oriented to time Skin: COMMON NORMALS: no rashes or lesions noted GENERAL SKIN EXAM: no rashes or lesions noted Course 2 Vital Signs: Vital signs: Vital Signs Temperature 97.9 F 01/03/24 13:41 Pulse Rate 70 01/03/24 16:30 Respiratory Rate 23 H 01/03/24 16:30 Blood Pressure 156/72 01/03/24 16:30 Pulse Oximetry 94 01/03/24 16:30 Oxygen Delivery Me thod Nasal Cannula 01/03/24 16:00 Oxygen Flow Rate 2 01/03/24 16:00 MDM - SOB/Dyspnea Medical Decision Making Chart reviewed. Patient has had several admissions since having her TAVR done. She appears to be in slightly worsening heart failure she has some diastolic component heart failure blood pressure is up we did give her some enalapril as well as Lasix which improved her blood pressure however even after urine output she continued to be symptomatic and began to require oxygen 2 L/min. White count slightly elevated but her procalcitonin is on lower and of normal. Will place on observation for diuresis blood pressure control. Medical Records I reviewed the patient's medical records. Lab Data I reviewed the patient's lab results. 01/03/24 14:14 01/03/24 14:14 Labs/Radiology: Radiology Impressions Chest X-Ray 01/03/24 13:59 IMPRESSION: 1. CHF with small bilateral pleural effusions 2. Focal area of nodularity in the lateral aspect of the right upper lung field. Could represent developing pneumonia. Could also represent fluid within the right matter fissure. Laboratory Results WBC 12.45 10^3/uL (3.29-11.43) H 01/03/24 14:14 RBC 4.48 10^6/uL (3.85-5.65) 01/03/24 14:14 Hgb 11.10 g/dL (11.27-16.99) L 01/03/24 14:14 Hct 37.0 % (36-47) 01/03/24 14:14 MCV 82.6 fl (85-98) L 01/03/24 14:14 MCH 24.8 pg (27-33) L 01/03/24 14:14 MCHC 30.0 g/dL (30-55) 01/03/24 14:14 RDW 17.4 % (12.1-15.1) H 01/03/24 14:14 Plt Count 250 10^3/cmm (157-399) 01/03/24 14:14 MPV 8.9 fL (7.4-10.4) 01/03/24 14:14 Neut % (Auto) 81.5 % 01/03/24 14:14 Lymph % (Auto) 8.1 % 01/03/24 14:14 [place] % (Auto) 9.4 % 01/03/24 14:14 Eos % (Auto) 0.2 % 01/03/24 14:14 Baso % (Auto) 0.6 % 01/03/24 14:14 Neut # (Auto) 10.13 10^3/uL (1.8-7.7) H 01/03/24 14:14 Lymph # (Auto) 1.0 10^3/uL (0.8-4.8) 01/03/24 14:14 [place] # (Auto) 1.2 10^3/uL (0.2-0.9) H 01/03/24 14:14 Eos # (Auto) 0.0 10^3/uL (0.0-0.8) 01/03/24 14:14 Baso # (Auto) 0.1 10^3/uL (0.0-0.1) 01/03/24 14:14 Nucleated RBC % (auto) 0 % 01/03/24 14:14 Nucleated RBCs # 0.0 /100WBC 01/03/24 14:14 Sodium 133 mmol/L (136-145) L 01/03/24 14:14 Potassium 3.9 mmol/L (3.5-5.1) 01/03/24 14:14 Chloride 94 mmol/L (98-107) L 01/03/24 14:14 Carbon Dioxide 27 mmol/L (22-29) 01/03/24 14:14 Anion Gap 15.9 (5-19) 01/03/24 14:14 BUN 15 mg/dL (8-23) 01/03/24 14:14 Creatinine 0.6 mg/dL (0.5-0.9) 01/03/24 14:14 GFR Calculation Not Reportable 01/03/24 14:14 Glucose 95 mg/dL (65-115) 01/03/24 14:14 Calculated Osmolality 277 mOsm/kg (285-295) L 01/03/24 14:14 Calcium 9.2 mg/dL (8.5-10.5) 01/03/24 14:14 Total Bilirubin 0.3 mg/dL (0.15-1.2) 01/03/24 14:14 AST 19 U/L (0-32) 01/03/24 14:14 ALT 11 U/L (0-33) 01/03/24 14:14 Alkaline Phosphatase 101 U/L (35-105) 01/03/24 14:14 Troponin T Baseline 54 ng/L (0-10) H 01/03/24 14:14 C-Reactive Protein 10.2 mg/L (0.0-4.9) H 01/03/24 14:14 NT-Pro-B Natriuret Pep 6348 pg/mL (0-450) H 01/03/24 14:14 Total Protein 7.0 g/dL (6.6-8.7) 01/03/24 14:14 Albumin 3.9 g/dL (3.5-5.2) 01/03/24 14:14 Globulin 3.1 g/dL (1.3-4.6) 01/03/24 14:14 Procalcitonin 0.08 ng/mL (0-0.5) 01/03/24 14:14 Urine Color Straw (Yellow) 01/03/24 14:58 Urine Appearance Clear (CLEAR) 01/03/24 14:58 Urine pH 7 (5-7) 01/03/24 14:58 Ur Specific [place] 1.010 (1.005-1.030) 01/03/24 14:58 Urine Protein Neg (Negative) 01/03/24 14:58 Urine Glucose (UA) Norm (Normal) 01/03/24 14:58 Urine Ketones Negative (Negative) 01/03/24 14:58 Urine Blood 2+ (Negative) H 01/03/24 14:58 Urine Nitrate Negative (Negative) 01/03/24 14:58 Urine Bilirubin Neg (Negative) 01/03/24 14:58 Urine Urobilinogen Norm mg/dL (Negative) 01/03/24 14:58 Ur Leukocyte Esterase 2+ (Negative) H 01/03/24 14:58 Urine RBC 0-4 /hpf (0-2) H 01/03/24 14:58 Urine WBC 0-4 /hpf (0-5) H 01/03/24 14:58 Ur Squamous Epith Cells 5-10 /hpf (0-5) H 01/03/24 14:58 Amorphous Sediment Not Reportable 01/03/24 14:58 Urine Bacteria 1+ /hpf (NONE) H 01/03/24 14:58 All radiology interpretation(s) finalized by discharge Discharge Plan Discharge Patient Disposition: Placed in Observation Clinical Impression: Diastolic congestive heart failure, Atrial fibrillation Condition: Stable Prescriptions: No Action amiodarone 200 mg tablet 200 mg PO BID Qty: 37 0RF potassium chloride 10 mEq tablet extended release 10 meq PO DAILY Qty: 30 0RF metoprolol tartrate 25 mg tablet 25 mg PO Q12H Qty: 60 0RF furosemide 40 mg tablet 60 mg PO DAILY@0800 Qty: 45 0RF ferrous sulfate 325 mg (65 mg iron) tablet,delayed release (DR/EC) 325 mg PO BIDWM Qty: 60 0RF Eliquis 2.5 mg tablet 2.5 mg PO BID Qty: 60 0RF omeprazole 40 mg capsule,delayed release(DR/EC) 40 mg PO QAM trazodone 150 mg tablet 150 mg PO QPM albuterol sulfate [ProAir HFA] 90 mcg/actuation HFA aerosol inhaler 1 inh inhalation Q6H PRN (Reason: shortness of breath or wheezing) Qty: 8.5 0RF Referrals: Stoney Jo [Primary Care Provider] - Coding Level of Care Code ED [employer]er for Zully Beard
[2024-01-03 14:50] LABS: Alanine Aminotransferase 11 U/L (0-33); Albumin Level 3.9 g/dL (3.5-5.2); Alkaline Phosphatase 101 U/L (35-105); Anion Gap 15.9 (5-19); Aspartate Amino Transferase 19 U/L (0-32); Blood Urea Nitrogen 15 mg/dL (8-23); Calcium 9.2 mg/dL (8.5-10.5); Carbon Dioxide 27 mmol/L (22-29); Chloride 94 mmol/L (98-107); Creatinine Clr Calc Pharmacy 34.0365; Globulin 3.1 g/dL (1.3-4.6); Glucose 95 mg/dL (65-115); Osmolality Calculated 277 mOsm/kg (285-295); Potassium 3.9 mmol/L (3.5-5.1); Sodium 133 mmol/L (136-145); Total Bilirubin 0.3 mg/dL (0.15-1.2)
[2024-01-03 14:51] LABS: Troponin(5th) Baseline 54 ng/L (0-10)
[2024-01-03 15:00] LABS: NT Pro B Type Natriuretic Pept 6348 pg/mL (0-450); Procalcitonin 0.08 ng/mL (0-0.5)
[2024-01-03 15:11] LABS: C Reactive Protein 10.2 mg/L (0.0-4.9)
[2024-01-03 15:25] LABS: Urine Appearance Clear (CLEAR); Urine Color Straw (Yellow); pH Urine 7 (5-7)
[2024-01-03 15:26] LABS: Add Urine Culture? Yes; Add Urine Microscopic? YES; Bacteria Urine 1+ /hpf; Bilirubin Urine Neg (Negative); Blood Urine 2+ (Negative); Glucose Urine UA Norm (Normal); Ketones Urine Negative (Negative); Leukocyte Esterase Urine 2+ (Negative); Nitrate Urine Negative (Negative); Protein Urine Neg (Negative); RBC Urine 0-4 /hpf (0-2); Urobilinogen Urine Norm (Negative); WBC Urine 0-4 /hpf (0-5)
[2024-01-03] MEDS: FUROsemide 10 mg/mL SDV 4mL 40 MG IVP (15:45)
[2024-01-03] MEDS: enalaprilat 2.5 mg/2 mL SDV 1.25 MG IVP (15:45)
--- NOTE | 2024-01-03 16:00 | ECG_ITS ---
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 Measurements Intervals [place] Rate: 70 P: 80 SC: 143 QRS: 5 QRSD: 134 T: 73 QT: 473 QTc: 512 Interpretive Statements SINUS RHYTHM LEFT BUNDLE BRANCH BLOCK [120+ ms QRS DURATION, 80+ ms Q/S IN V1/V2, 85+ ms R IN I/aVL/V5/V6] Compared to ECG 01/03/2024 14:28:42 No significant changes Electronically Signed On 01-04-2024 21:47:27 CDT by Cesar Kessler M.D. [id number]
[2024-01-03 17:35] LABS: Troponin 5 2HR 53.53 ng/L (0-10); Troponin 5 2HR Delta -0.47 ABS# (0-10)
--- NOTE | 2024-01-03 17:59 | P.HP_ITS ---
Documented by User: Monse Hensley MD 01/04/24 13:46 Providers/Chief Complaint 2 Primary Care Provider: Stoney Jo Chief Complaint: sob History of Present Illness Jes Durbin is a 88 year old female with past medical history of aortic stenosis status post TAVR, atrial fibrillation, mitral regurgitation, coronary artery disease, chronic diastolic congestive heart failure presented to the hospital today for complaint of shortness of breath. She recently had TAVR done in November 19, 2023 in [place]. She has had a few admissions for A-fib RVR and CHF exacerbation since then. She is also been treated for infectious causes most recently saw her primary care doctor and was prescribed Zithromax for which she completed the course for. CTA was done at previous hospitalization which did not show a PE but showed bilateral mucous plugging. Patient not hypoxic not requiring oxygen. Denies fever sweats chills. Denies productive cough. Saw her refining still operator on 24 December at which point she was considered stable and was sent home on Lasix 60 and potassium 10 daily. Today patient complains of orthopnea. Most recent echo November 2023 shows EF 55 to 60%, left ventricle severely dilated, bioprosthetic aortic valve seen. EKG in ER today shows sinus rhythm. Patient currently on amiodarone and Eliquis 2.5 twice a day. She is scheduled to see cardiology in February. WBC 12.45 today, C-reactive protein 10, baseline troponin 54, BNP 6300. In the past she has had BNP all the way up to 10,000. UA shows 1+ bacteria however does not appear to be a clean sample. Squamous cell 5-10. 2+ leukocyte esterase. Medications/Allergies Home Medications Medication Instructions Recorded Confirmed Last Taken Type omeprazole 40 mg capsule,delayed 40 mg PO QAM 08/21/23 01/03/24 01/03/24 History release trazodone 150 mg tablet 150 mg PO QPM 08/21/23 01/03/24 01/03/24 History albuterol sulfate 90 mcg/actuation 1 inh inhalation Q6H PRN shortness 10/10/23 01/03/24 Unknown Rx aerosol inhaler (ProAir HFA) of breath or wheezing #8.5 grams amiodarone 200 mg tablet 200 mg PO BID #37 tabs 03/07/24 03/16/24 03/16/24 Rx ferrous sulfate 325 mg (65 mg 325 mg PO BIDWM #60 tabs 12/25/23 01/03/24 01/03/24 Rx iron) tablet,delayed release furosemide 40 mg tablet 60 mg (1.5 x 40 mg) PO DAILY@0800 12/25/23 01/03/24 01/03/24 Rx #45 tabs metoprolol tartrate 25 mg tablet 25 mg PO Q12H #60 tabs 12/25/23 01/03/24 01/03/24 Rx potassium chloride 10 mEq 10 meq PO DAILY #30 tabs 12/25/23 01/03/24 01/03/24 Rx tablet,extended release apixaban 2.5 mg tablet (Eliquis) 2.5 mg PO BID #60 tabs 12/30/23 01/03/24 01/03/24 Rx Allergies Allergy/AdvReac Type Severity Reaction Status Date / Time Penicillins Allergy Unknown Unknown Verified 01/03/24 14:54 PFSH Acute 2 PFSH: Medical History Atrial fibrillation Mitral regurgitation Coronary artery disease CHF exacerbation Diastolic congestive heart failure Aortic stenosis Surgical History S/P TAVR (transcatheter aortic valve replacement) History of coronary angiogram Social History Smoking and tobacco/nicotine status: never used tobacco/nicotine Second hand smoke exposure: No Alcohol intake: never Substance/Drug Use: never Lives independently: Yes Vitals/I&O/Wt Last Vital Signs Temp 97.9 F 01/03/24 13:41 Pulse 75 01/03/24 17:45 Resp 18 01/03/24 17:45 BP 149/68 01/03/24 17:45 Pulse Ox 96 01/03/24 17:45 O2 Del Method Nasal Cannula 01/03/24 17:45 O2 Flow Rate 3 01/03/24 17:45 01/03/24 01/03/24 01/03/24 06:59 14:59 22:59 Output Total 300 / 300 Balance -300 / -300 Weight last 48 hrs Weight 42.638 kg Data 01/04/24 03:24 01/04/24 03:24 A&P Assessment and plan (1) Hypoxia: (2) Diastolic congestive heart failure: Qualifiers: Heart failure chronicity: chronic Qualified Code(s): I50.32 - Chronic diastolic (congestive) heart failure (3) Aortic stenosis: Qualifiers: Cardiac valve disease etiology: nonrheumatic Qualified Code(s): I35.0 - Nonrheumatic aortic (valve) stenosis (4) Mitral regurgitation: (5) Atrial fibrillation: Qualifiers: Atrial fibrillation type: paroxysmal Qualified Code(s): I48.0 - Paroxysmal atrial fibrillation (6) Community acquired pneumonia: Plan #Acute on chronic diastolic CHF exacerbation #Atrial fibrillation?sinus rhythm at this time, stable #Chronic anticoagulation with Eliquis #History of TAVR recently October 2023 #Possible UTI #Orthopnea secondary to diastolic CHF exacerbation ? Continue Lasix 60 IV daily ? Continue potassium 10 daily ? Continue 2.5 Eliquis twice daily ? Continue metoprolol tartrate 25 twice daily ? Patient did recently complete ciprofloxacin course 500 twice a day for possible UTI ? I will repeat UA before starting antibiotics again. Monitor off antibiotics for now. ? Patient does not have any urinary complaints at this time. ? Continue amiodarone 200 twice daily, omeprazole, trazodone ? DuoNeb every 6 hours as needed ? Chest x-ray shows CHF with small bilateral pleural effusions. Focal area of nodularity in lateral aspect of right upper lung field. Could represent developing pneumonia. Could also represent fluid within the right minor fissure. Self interpretation appears more like fluid as opposed to pneumonia. -Check BMP, magnesium and phosphorus in AM. Full code Prophylaxis: On Eliquis 2.5 twice daily Coding Level of Care Code 67296 Diagnoses Hypoxia R09.02 Chronic diastolic congestive heart failure I50.32 Heart failure chronicity: chronic Nonrheumatic aortic valve stenosis I35.0 Cardiac valve disease etiology: nonrheumatic Mitral regurgitation I34.0 Paroxysmal atrial fibrillation I48.0 Atrial fibrillation type: paroxysmal Community acquired pneumonia J18.9 Documented by User: Viviane Judge MD 01/03/24 22:28 Providers/Chief Complaint 2 Chief Complaint: sob History of Present Illness Jes Durbin is a 88 year old female with past medical history of aortic stenosis status post TAVR, atrial fibrillation, mitral regurgitation, coronary artery disease, chronic diastolic congestive heart failure presented to the hospital today for complaint of shortness of breath. She recently had TAVR done in November 19, 2023 in [place]. She has had a few admissions for A-fib RVR and CHF exacerbation since then. She is also been treated for infectious causes most recently saw her primary care doctor and was prescribed Zithromax for which she completed the course for. CTA was done at previous hospitalization which did not show a PE but showed bilateral mucous plugging. Patient not hypoxic not requiring oxygen. Denies fever sweats chills. Denies productive cough. Saw her refining still operator on 24 December at which point she was considered stable and was sent home on Lasix 60 and potassium 10 daily. Today patient complains of orthopnea. Most recent echo November 2023 shows EF 55 to 60%, left ventricle severely dilated, bioprosthetic aortic valve seen. Patient is stating that she was given antibiotics for her possible pneumonia for 3 days but she thinks she has not recovered well she does not use oxygen at baseline, she has been noticing orthopnea PND and shortness of breath on exertion, no active chest pain no recent fever, she is being up white sputum with her cough EKG in ER today shows sinus rhythm. Patient currently on amiodarone and Eliquis 2.5 twice a day. She is scheduled to see cardiology in February. WBC 12.45 today, C-reactive protein 10, baseline troponin 54, BNP 6300. In the past she has had BNP all the way up to 10,000. UA shows 1+ bacteria however does not appear to be a clean sample. Squamous cell 5-10. 2+ leukocyte esterase. Currently on 2 L nasal cannula, saturating 92% Review of Systems 2 Const: Reports: fatigue; Denies: fever(s) Eyes: Denies: change in vision ENMT: Denies: throat pain Card: Denies: chest pain Resp: Reports: dyspnea and productive cough GI: Reports: nausea Medications/Allergies Home Medications Medication Instructions Recorded Confirmed Last Taken Type omeprazole 40 mg capsule,delayed 40 mg PO QAM 08/21/23 01/03/24 01/03/24 History release trazodone 150 mg tablet 150 mg PO QPM 08/21/23 01/03/24 01/03/24 History albuterol sulfate 90 mcg/actuation 1 inh inhalation Q6H PRN shortness 10/10/23 01/03/24 Unknown Rx aerosol inhaler (ProAir HFA) of breath or wheezing #8.5 grams amiodarone 200 mg tablet 200 mg PO BID #37 tabs 12/25/23 01/03/24 01/03/24 Rx ferrous sulfate 325 mg (65 mg 325 mg PO BIDWM #60 tabs 12/25/23 01/03/24 01/03/24 Rx iron) tablet,delayed release furosemide 40 mg tablet 60 mg (1.5 x 40 mg) PO DAILY@0800 12/25/23 01/03/24 01/03/24 Rx #45 tabs metoprolol tartrate 25 mg tablet 25 mg PO Q12H #60 tabs 12/25/23 01/03/24 01/03/24 Rx potassium chloride 10 mEq 10 meq PO DAILY #30 tabs 12/25/23 01/03/24 01/03/24 Rx tablet,extended release apixaban 2.5 mg tablet (Eliquis) 2.5 mg PO BID #60 tabs 12/30/23 01/03/24 01/03/24 Rx Allergies Allergy/AdvReac Type Severity Reaction Status Date / Time Penicillins Allergy Unknown Unknown Verified 01/03/24 14:54 PFSH Acute 2 PFSH: Medical History Atrial fibrillation Mitral regurgitation Coronary artery disease CHF exacerbation Diastolic congestive heart failure Aortic stenosis Surgical History S/P TAVR (transcatheter aortic valve replacement) History of coronary angiogram Social History Smoking and tobacco/nicotine status: never used tobacco/nicotine Second hand smoke exposure: No Alcohol intake: never Substance/Drug Use: never Lives independently: Yes Physical Exam 2 Narrative: Clinically euvolemic Crackles noted on lung auscultation Currently on 2 L Nonfocal neuroexam Pleasant cough Laying Semi-Valdes position 45 degrees GCS 15 appears stated age No acute distress Active chest pain Data 01/04/24 03:24 01/04/24 03:24 A&P Assessment and plan (1) Hypoxia: (2) Diastolic congestive heart failure: Qualifiers: Heart failure chronicity: chronic Qualified Code(s): I50.32 - Chronic diastolic (congestive) heart failure (3) Aortic stenosis: Qualifiers: Cardiac valve disease etiology: nonrheumatic Qualified Code(s): I35.0 - Nonrheumatic aortic (valve) stenosis (4) Mitral regurgitation: (5) Atrial fibrillation: Qualifiers: Atrial fibrillation type: paroxysmal Qualified Code(s): I48.0 - Paroxysmal atrial fibrillation (6) Community acquired pneumonia: Plan #Acute on chronic diastolic CHF exacerbation #Atrial fibrillation?sinus rhythm at this time, stable #Chronic anticoagulation with Eliquis #History of TAVR recently October 2023 #Possible UTI #Orthopnea secondary to diastolic CHF exacerbation ? Continue Lasix 60 IV daily ? Continue potassium 10 daily ? Continue 2.5 Eliquis twice daily for her history of A-fib ? Continue metoprolol tartrate 25 twice daily ? Patient did recently complete ciprofloxacin course 500 twice a day for possible UTI ? I will repeat UA before starting antibiotics again. ? Patient does not have any urinary complaints at this time. ? Continue amiodarone 200 twice daily, omeprazole, trazodone ? DuoNeb every 6 hours as needed ? Chest x-ray shows CHF with small bilateral pleural effusions. Focal area of nodularity in lateral aspect of right upper lung field. Could represent developing pneumonia. Could also represent fluid within the right minor fissure. Self interpretation appears more like fluid as opposed to pneumonia. -Check BMP, magnesium and phosphorus in AM. Full code Prophylaxis: On Eliquis 2.5 twice daily Wean oxygen to room air Will request CT chest as well to rule out pneumonia empirically will give ceftriaxone and doxycycline Attestations 2 Medical Necessity Statement*: Anticipating discharge within 48 hours Diagnoses Hypoxia R09.02 Chronic diastolic congestive heart failure I50.32 Heart failure chronicity: chronic Nonrheumatic aortic valve stenosis I35.0 Cardiac valve disease etiology: nonrheumatic Mitral regurgitation I34.0 Paroxysmal atrial fibrillation I48.0 Atrial fibrillation type: paroxysmal Community acquired pneumonia J18.9
--- NOTE | 2024-01-03 18:56 | PC.NURSE ---
Patient presents to [facility] from the ED via a bed. She is able to walk from hallway to room bed with stand-by assist. She is currently sitting on the side of bed to eat dinner and get monitors applied.
--- NOTE | 2024-01-03 18:58 | PC.NURSE ---
Patient is refusing the carson catheter at this time, she said I do not want that. I want to walk. Nursing staff educated her that we need to monitor her output so she agreed to use the bedside commode.
[2024-01-03 20:43] LABS: Troponin 5 6HR 55.31 ng/L (0-10); Troponin 5 6HR Delta 1.31 ng/L (0-12)
[2024-01-03] MEDS: metoprolol tartrate 25 mg Tablet PO (21:25)
[2024-01-03] MEDS: cefTRIAXone 1,000 MG in sodium chloride 0.9% (plus) 50 ML 100 MG IV (21:26)
[2024-01-03] MEDS: trazodone 150 mg Tablet PO (21:47)
--- NOTE | 2024-01-03 21:53 | CTR_ITS ---
PROCEDURE INFORMATION: Exam: CT Chest Without Contrast; Diagnostic Exam date and time: 01/03/2024 10:04 PM Age: 88 years old Clinical indication: Cough and shortness of breath; Prior surgery; Surgery date: 6+ months; Surgery type: Tavr; Patient HX: Cough with SOB. History of chf. ; Additional info: Pneumonia, hypoxia TECHNIQUE: Imaging protocol: Diagnostic computed tomography of the chest without contrast. Radiation optimization: All CT scans at this facility use at least one of these dose optimization techniques: automated exposure control; mA and/or kV adjustment per patient size (includes targeted exams where dose is matched to clinical indication); or iterative reconstruction. COMPARISON: CT angio chest PE protcl [id number] 12/01/2023 4:05 PM RADIATION DOSE METRICS: Total DLP (mGy-cm): 602.1 FINDINGS: Lungs: Scattered bilateral airspace opacities have changed in distribution since November. Currently focal infiltrates in the right upper lobe are suggestive of pneumonia. There is bibasilar dependent and compressive atelectasis. There are scattered areas of mucous plugging. Chronic bronchiectasis especially in the lower lobes and with accompanying bronchial wall thickening. Pleural spaces: Persistent or recurrent moderate pleural effusions layer posteriorly. Heart: The mitral valve is calcified. Coronary arteries: Numerous calcified plaques in the coronary arteries. Lymph nodes: Unremarkable. No enlarged lymph nodes. Vasculature: Chronic stent in the ascending thoracic aorta. Extensive atherosclerosis. There is heavy calcified plaque in the origin of the left subclavian artery producing significant stenosis. Liver: Probable 1 cm right hepatic cyst. Bones/joints: Chronic degenerative changes in the lower thoracic and upper lumbar spine Soft tissues: Unremarkable. CT/CT chest [facility] [id number] IMPRESSION: 1. Chronic or recurrent pleural effusions. 2. New right upper lobe infiltrates suggesting pneumonia. 3. Chronic bronchiectasis and mucous plugging. 4. Extensive atherosclerosis. 5. Other chronic findings as described.
[2024-01-04] VITALS (13 sets, daily range): BP systolic 121–151; BP diastolic 32–73; PULSE 64–78; RESP 15–27; TEMP 36.6–37.2; O2SAT 93–99
[2024-01-04 03:33] LABS: Basophils # 0.1 10^3/uL (0.0-0.1); Basophils % 0.6 %; Eosinophils # 0.1 10^3/uL (0.0-0.8); Eosinophils % 0.7 %; Hematocrit 33.8 % (36-47); Lymphocytes # 1.5 10^3/uL (0.8-4.8); Lymphocytes % 10.9 %; Mean Corpuscular HGB Conc 30.8 g/dL (30-55); Mean Corpuscular Hemoglobin 24.9 pg (27-33); Mean Corpuscular Volume 81.1 fl (85-98); Mean Platelet Volume 8.7 fL (7.4-10.4); Monocytes # 1.3 10^3/uL (0.2-0.9); Monocytes % 9.9 %; Neutrophils # 10.45 10^3/uL (1.8-7.7); Neutrophils % 77.5 %; Nucleated Red Blood Cells % 0 %; Platelet Count 241 10^3/cmm (157-399); Red Blood Count 4.17 10^6/uL (3.85-5.65); Red Cell Distribution Width 17.8 % (12.1-15.1); White Blood Count 13.48 10^3/uL (3.29-11.43)
[2024-01-04 03:57] LABS: Alanine Aminotransferase 9 U/L (0-33); Albumin Level 3.3 g/dL (3.5-5.2); Alkaline Phosphatase 93 U/L (35-105); Anion Gap 12.8 (5-19); Aspartate Amino Transferase 16 U/L (0-32); Blood Urea Nitrogen 20 mg/dL (8-23); Calcium 9.2 mg/dL (8.5-10.5); Carbon Dioxide 30 mmol/L (22-29); Chloride 96 mmol/L (98-107); Creatinine Clr Calc Pharmacy 29.7223; Globulin 2.8 g/dL (1.3-4.6); Glucose 112 mg/dL (65-115); Osmolality Calculated 283 mOsm/kg (285-295); Potassium 3.8 mmol/L (3.5-5.1); Sodium 135 mmol/L (136-145); Total Bilirubin 0.2 mg/dL (0.15-1.2); Total Protein 6.1 g/dL (6.6-8.7)
[2024-01-04] MEDS: ipratropium-albuterol 3 mL Neb INHALATION (08:34)
[2024-01-04] MEDS: budesonide 0.5 mg/2 mL Neb INHALATION ×2 (08:35→20:19)
[2024-01-04] MEDS: apixaban 5 mg Tablet 2.5 MG PO ×2 (09:45→17:56)
[2024-01-04] MEDS: ferrous sulfate EC 325 mg Tablet PO ×2 (09:45→17:56)
[2024-01-04] MEDS: doxycycline 100 mg Tablet PO ×2 (09:45→17:56)
[2024-01-04] MEDS: amiodarone 200 mg Tablet PO ×2 (09:46→17:57)
[2024-01-04] MEDS: metoprolol tartrate 25 mg Tablet PO ×2 (09:46→17:57)
[2024-01-04] MEDS: FUROsemide 10 mg/mL SDV 10mL 60 MG IVP (09:46)
[2024-01-04] MEDS: cefTRIAXone 1,000 MG in sodium chloride 0.9% (plus) 50 ML 100 MG IV (09:46)
[2024-01-04] MEDS: pantoprazole DR 40 mg Tablet PO (09:46)
--- NOTE | 2024-01-04 13:46 | P.PN_ITS ---
Subjective 2 Subjective: Seen this morning. No acute events overnight. Patient is feeling better. No longer having orthopnea Vitals/I&O/Wt Last Vital Signs Temp 98.9 F 01/04/24 11:09 Pulse 71 01/04/24 11:09 Resp 17 01/04/24 11:09 BP 121/32 01/04/24 11:09 Pulse Ox 99 01/04/24 11:09 O2 Del Method Nasal Cannula 01/04/24 11:09 O2 Flow Rate 2 01/04/24 08:35 FiO2 32 01/03/24 22:56 01/03/24 01/04/24 01/04/24 22:59 06:59 14:59 Intake Total 50 / 50 530 / 530 Output Total 725 / 725 Balance -675 / -675 530 / 530 Weight last 48 hrs Weight 41.095 kg Weight 40.687 kg Weight 42.638 kg Physical Exam 2 Narrative: Clinically euvolemic Clear to auscultation bilaterally Currently on 2 L Nonfocal neuroexam Pleasant cough GCS 15 appears stated age No acute distress Active chest pain Data 01/04/24 03:24 01/04/24 03:24 Micro: Microbiology 01/03/24 14:58 Urine Culture - Preliminary Urine,Clean Catch A&P Assessment and plan (1) Hypoxia: (2) Diastolic congestive heart failure: Qualifiers: Heart failure chronicity: chronic Qualified Code(s): I50.32 - Chronic diastolic (congestive) heart failure (3) Aortic stenosis: Qualifiers: Cardiac valve disease etiology: nonrheumatic Qualified Code(s): I35.0 - Nonrheumatic aortic (valve) stenosis (4) Mitral regurgitation: (5) Atrial fibrillation: Qualifiers: Atrial fibrillation type: paroxysmal Qualified Code(s): I48.0 - Paroxysmal atrial fibrillation (6) Community acquired pneumonia: Plan #Acute on chronic diastolic CHF exacerbation #Right upper lobe pneumonia #Atrial fibrillation?sinus rhythm at this time, stable #Chronic anticoagulation with Eliquis #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 Chronic or recurrent pleural effusions. 2. New right upper lobe infiltrates suggesting pneumonia. 3. Chronic bronchiectasis and mucous plugging. 4. Extensive atherosclerosis. 5. Other chronic findings as described. BNP 6300. ? Continue Lasix 60 IV daily ? Continue potassium 10 daily ? Continue 2.5 Eliquis twice daily for her history of A-fib ? Continue metoprolol tartrate 25 twice daily ? Patient did recently complete ciprofloxacin course 500 twice a day for possible UTI ? I will repeat UA before starting antibiotics again. Repeat UA pending. ? Patient does not have any urinary complaints at this time. ? Continue amiodarone 200 twice daily, omeprazole, trazodone ? DuoNeb every 6 hours as needed ? Continue on ceftriaxone azithromycin. Full code Prophylaxis: On Eliquis 2.5 twice daily Wean oxygen to room air Attestations 2 Medical Necessity Statement*: Anticipating discharge within 48 hours Diagnoses Hypoxia R09.02 Chronic diastolic congestive heart failure I50.32 Heart failure chronicity: chronic Nonrheumatic aortic valve stenosis I35.0 Cardiac valve disease etiology: nonrheumatic Mitral regurgitation I34.0 Paroxysmal atrial fibrillation I48.0 Atrial fibrillation type: paroxysmal Community acquired pneumonia J18.9
[2024-01-04] MEDS: trazodone 150 mg Tablet PO (20:48)
[2024-01-05] VITALS (12 sets, daily range): BP systolic 100–158; BP diastolic 60–75; PULSE 64–74; RESP 15–24; TEMP 36.4–36.8; O2SAT 97–100
[2024-01-05 05:00] LABS: Basophils # 0.1 10^3/uL (0.0-0.1); Basophils % 0.6 %; Eosinophils # 0.2 10^3/uL (0.0-0.8); Eosinophils % 1.8 %; Lymphocytes # 1.4 10^3/uL (0.8-4.8); Lymphocytes % 14.5 %; Mean Corpuscular HGB Conc 30.3 g/dL (30-55); Mean Corpuscular Hemoglobin 24.7 pg (27-33); Mean Corpuscular Volume 81.4 fl (85-98); Mean Platelet Volume 9.6 fL (7.4-10.4); Monocytes # 1.2 10^3/uL (0.2-0.9); Monocytes % 12.3 %; Neutrophils # 6.61 10^3/uL (1.8-7.7); Neutrophils % 70.5 %; Nucleated Red Blood Cells % 0 %; Platelet Count 220 10^3/cmm (157-399); Red Blood Count 3.81 10^6/uL (3.85-5.65); Red Cell Distribution Width 17.7 % (12.1-15.1); White Blood Count 9.38 10^3/uL (3.29-11.43)
[2024-01-05 05:29] LABS: Anion Gap 11.8 (5-19); Blood Urea Nitrogen 31 mg/dL (8-23); Calcium 9.2 mg/dL (8.5-10.5); Carbon Dioxide 29 mmol/L (22-29); Chloride 97 mmol/L (98-107); Creatinine Clr Calc Pharmacy 26.8503; Glucose 95 mg/dL (65-115); Osmolality Calculated 284 mOsm/kg (285-295); Potassium 3.8 mmol/L (3.5-5.1); Sodium 134 mmol/L (136-145)
[2024-01-05] MEDS: metoprolol tartrate 25 mg Tablet PO ×2 (08:35→17:46)
[2024-01-05] MEDS: FUROsemide 10 mg/mL SDV 10mL 60 MG IVP (08:35)
[2024-01-05] MEDS: ferrous sulfate EC 325 mg Tablet PO ×2 (08:35→17:46)
[2024-01-05] MEDS: doxycycline 100 mg Tablet PO ×2 (08:35→17:46)
[2024-01-05] MEDS: cefTRIAXone 1,000 MG in sodium chloride 0.9% (plus) 50 ML 100 MG IV (08:36)
[2024-01-05] MEDS: apixaban 5 mg Tablet 2.5 MG PO ×2 (08:36→17:47)
[2024-01-05] MEDS: amiodarone 200 mg Tablet PO ×2 (08:36→17:46)
[2024-01-05] MEDS: pantoprazole DR 40 mg Tablet PO (08:36)
[2024-01-05] MEDS: budesonide 0.5 mg/2 mL Neb INHALATION ×2 (08:58→19:46)
--- NOTE | 2024-01-05 09:39 | PC.CHAP ---
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 [] Patient/Family/Request visit [] Outpatient visit [] Follow-up visit [] Physician referral [] Code/Alert [x] Routine visit [] Staff referral [] Actively dying [] Patient sleeping [] Family support [] [] Out of room [] Palliative care [] [] Receiving care in room [] Pre-surgical visit [] Trauma [] Long length of stay [] ICU visit [] Other: Relational/Emotional Strength [] Patient feels connected with others/family/visitors/staff [] Distress [] Loneliness/isolation [] Abandonment Spirituality of Patient [x] Person of Shahida [] Attends [employer] of their Shahida [] Believes in Prayer [] Reads Bible or Nondenominational materials [] There are Spiritual issues to be addressed Dump Motorman Interventions [x] Prayer [x] Active listening [] Non-anxious presence [] Spiritual/emotional support [] Crisis/trauma care [] Spiritual counseling [] Bereavement support [] Provided bereavement packet [] Provided Bible/devotional materials [] Provided toy/stuffed animal, coloring book to patient or family member [] Provided Communion [] Anointing/[place] [] Salvation [x] Completed spiritual assessment [] Other: Impact on Illness or Injury [] Angry [] Fearful [] Anxious [] Often cries [] Exhaustion [] Unable to work [] Unable to attend bahai [] Unable to walk/stand [] Unable to read [] Unable to drive [] Unable to eat/drink [] Unable to sleep [] Unable to be with family [] Patient intubated [] Other: Summary Time spent with patient 5min
--- NOTE | 2024-01-05 17:23 | P.PN_ITS ---
Subjective 2 Subjective: Patient is afebrile, hemodynamically stable, however states that she just does not feel well today. She is clinically euvolemic appearing today. Medications: Reviewed: Yes Vitals/I&O/Wt Last Vital Signs Temp 97.5 F L 01/05/24 08:00 Pulse 71 01/05/24 17:05 Resp 24 H 01/05/24 17:05 BP 136/61 01/05/24 17:05 Pulse Ox 99 01/05/24 17:05 O2 Del Method Room Air 01/05/24 08:58 O2 Flow Rate 2 01/04/24 08:35 FiO2 32 01/03/24 22:56 01/05/24 01/05/24 01/05/24 06:59 14:59 22:59 Intake Total 170 / 170 120 / 290 Output Total 650 / 650 Balance -650 / 120 170 / 170 120 / 290 Weight last 48 hrs Weight 42.184 kg Weight 41.095 kg Weight 40.687 kg Physical Exam 2 Narrative: General: No acute distress, AO x3 HEENT: PERRLA, pupils bilaterally equal and reactive, pallors not present Chest: Normal vesicular breath sounds, no added sounds, equal good air entry bilaterally CVS: S1-S2 regular, no murmurs, no tachycardia, no gallops, no rubs Abdomen: Soft, nontender, no organomegaly, bowel sounds present Neuro: No focal deficits, no facial deformity, AO x3, power 5/5 in all limbs Data 01/05/24 04:28 01/05/24 04:28 Micro: Microbiology 01/03/24 20:57 Gram Stain - Final Sputum - Expectorated Sputum Sputum Culture - Preliminary Gram Negative Rods 01/03/24 14:58 Urine Culture - Final Urine,Clean Catch A&P Assessment and plan (1) Hypoxia: (2) Diastolic congestive heart failure: Qualifiers: Heart failure chronicity: chronic Qualified Code(s): I50.32 - Chronic diastolic (congestive) heart failure (3) Aortic stenosis: Qualifiers: Cardiac valve disease etiology: nonrheumatic Qualified Code(s): I35.0 - Nonrheumatic aortic (valve) stenosis (4) Mitral regurgitation: (5) Atrial fibrillation: Qualifiers: Atrial fibrillation type: paroxysmal Qualified Code(s): I48.0 - Paroxysmal atrial fibrillation (6) Community acquired pneumonia: Plan #Acute on chronic diastolic CHF exacerbation #Right upper lobe pneumonia #Atrial fibrillation?sinus rhythm at this time, stable #Chronic anticoagulation with Eliquis #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 Chronic or recurrent pleural effusions. 2. New right upper lobe infiltrates suggesting pneumonia. 3. Chronic bronchiectasis and mucous plugging. 4. Extensive atherosclerosis. 5. Other chronic findings as described. BNP 6300. ? Continue Lasix 60 IV daily ? Continue potassium 10 daily ? Continue 2.5 Eliquis twice daily for her history of A-fib ? Continue metoprolol tartrate 25 twice daily ? Patient did recently complete ciprofloxacin course 500 twice a day for possible UTI ? I will repeat UA before starting antibiotics again. Repeat UA pending. ? Patient does not have any urinary complaints at this time. ? Continue amiodarone 200 twice daily, omeprazole, trazodone ? DuoNeb every 6 hours as needed ? Continue on ceftriaxone azithromycin. Full code Prophylaxis: On Eliquis 2.5 twice daily Wean oxygen to room air Plan for today. Patient remains afebrile and hemodynamically stable, however states that she feels very poorly. She continues to have a cough with sputum production. He sputum culture preliminarily growing gram-negative rods. Review of past culture shows patient is colonized with Pseudomonas aeruginosa as seen on cultures from September 2023. Change ceftriaxone 1 g IV every 24 hours to cefepime for added pseudomonal coverage. Continue doxycycline for atypical coverage while pending sputum cultures. Discontinue Lasix 60 mg IV every 12 hours, patient appearing to be clinically dehydrated today. Changed to Lasix 40 mg p.o. daily starting tomorrow. Assess for response with these changes. Additionally check respiratory viral panel, potentially acute viral illness may be contributing to her lethargy and weakness in which case antibiotics would not be of much help and would explain persistence of her cough and spite of outpatient oral antibiotic treatment Attestations 2 Medical Necessity Statement*: Change antibiotics based on available sputum cultures. Awaiting final identification. Changed to inpatient admission given need for continued admission Coding Level of Care Code Acute Code for [facility] Diagnoses Hypoxia R09.02 Chronic diastolic congestive heart failure I50.32 Heart failure chronicity: chronic Nonrheumatic aortic valve stenosis I35.0 Cardiac valve disease etiology: nonrheumatic Mitral regurgitation I34.0 Paroxysmal atrial fibrillation I48.0 Atrial fibrillation type: paroxysmal Community acquired pneumonia J18.9
[2024-01-05] MEDS: cefepime 2,000 MG in sodium chloride 0.9% (plus) 50 ML 100 MG IV (17:47)
[2024-01-05 19:43] LABS: Adenovirus Not Detected (NOT DETECT); Chlamydia Pneumoniae Not Detected (NOT DETECT); Coronavirus 229E,HKU1,NL63,OC4 Not Detected (NOT DETECT); Human Metapneumovirus Not Detected (NOT DETECT); Human Rhinovirus/Enterovirus Not Detected (NOT DETECT); Influenza A Not Detected (NOT DETECT); Influenza A H1 Not Detected (NOT DETECT); Influenza A H1-2009 Not Detected (NOT DETECT); Influenza A H3 Not Detected (NOT DETECT); Influenza B Not Detected (NOT DETECT); Mycoplasma Pneumoniae Not Detected (NOT DETECT); Parainfluenza Virus Type 1 Not Detected (NOT DETECT); Parainfluenza Virus Type 2 Not Detected (NOT DETECT); Parainfluenza Virus Type 3 Not Detected (NOT DETECT); Parainfluenza Virus Type 4 Not Detected (NOT DETECT); Respiratory Syncytial Virus A Not Detected (NOT DETECT); Respiratory Syncytial Virus B Not Detected (NOT DETECT); SARS-COV-2 Not Detected (NOT DETECT)
[2024-01-05] MEDS: trazodone 150 mg Tablet PO (20:19)
[2024-01-06] VITALS (13 sets, daily range): BP systolic 152–169; BP diastolic 60–77; PULSE 63–74; RESP 16–23; TEMP 36.4–36.9; O2SAT 95–99
[2024-01-06 05:43] LABS: Basophils # 0.1 10^3/uL (0.0-0.1); Basophils % 0.8 %; Eosinophils # 0.2 10^3/uL (0.0-0.8); Eosinophils % 1.9 %; Hematocrit 33.3 % (36-47); Lymphocytes # 1.4 10^3/uL (0.8-4.8); Lymphocytes % 15.8 %; Mean Corpuscular HGB Conc 29.7 g/dL (30-55); Mean Corpuscular Volume 84.1 fl (85-98); Mean Platelet Volume 9.6 fL (7.4-10.4); Monocytes # 1.1 10^3/uL (0.2-0.9); Monocytes % 12.4 %; Neutrophils # 6.18 10^3/uL (1.8-7.7); Neutrophils % 68.5 %; Nucleated Red Blood Cells % 0 %; Platelet Count 227 10^3/cmm (157-399); Red Blood Count 3.96 10^6/uL (3.85-5.65); Red Cell Distribution Width 17.7 % (12.1-15.1); White Blood Count 9.01 10^3/uL (3.29-11.43)
[2024-01-06] MEDS: metoprolol tartrate 25 mg Tablet PO ×2 (06:14→18:32)
[2024-01-06] MEDS: cefepime 2,000 MG in sodium chloride 0.9% (plus) 50 ML 100 MG IV ×2 (06:14→18:31)
[2024-01-06 06:27] LABS: Alanine Aminotransferase 9 U/L (0-33); Albumin Level 3.3 g/dL (3.5-5.2); Alkaline Phosphatase 127 U/L (35-105); Anion Gap 13.1 (5-19); Aspartate Amino Transferase 16 U/L (0-32); Blood Urea Nitrogen 25 mg/dL (8-23); Calcium 9.2 mg/dL (8.5-10.5); Carbon Dioxide 27 mmol/L (22-29); Chloride 101 mmol/L (98-107); Creatinine Clr Calc Pharmacy 33.9388; Glucose 97 mg/dL (65-115); Osmolality Calculated 288 mOsm/kg (285-295); Potassium 4.1 mmol/L (3.5-5.1); Sodium 137 mmol/L (136-145); Total Bilirubin 0.2 mg/dL (0.15-1.2); Total Protein 6.3 g/dL (6.6-8.7)
[2024-01-06] MEDS: amiodarone 200 mg Tablet PO ×2 (08:21→18:32)
[2024-01-06] MEDS: doxycycline 100 mg Tablet PO (08:21)
[2024-01-06] MEDS: FUROsemide 40 mg Tablet PO (08:21)
[2024-01-06] MEDS: ferrous sulfate EC 325 mg Tablet PO ×2 (08:21→18:32)
[2024-01-06] MEDS: pantoprazole DR 40 mg Tablet PO (08:21)
[2024-01-06] MEDS: apixaban 5 mg Tablet 2.5 MG PO ×2 (08:22→18:32)
[2024-01-06] MEDS: budesonide 0.5 mg/2 mL Neb INHALATION ×2 (09:03→20:02)
--- NOTE | 2024-01-06 09:58 | PC.CHAP ---
Pastoral Care Encounter/Spiritual Assessment Type of Contact [] Declined community service technician visit [] Patient/Family/Request visit [] Outpatient visit [] Follow-up visit [] Physician referral [] Code/Alert [x] Routine visit [] Staff referral [] Actively dying [] Patient sleeping [] Family support [] [] Out of room [] Palliative care [] [] Receiving care in room [] Pre-surgical visit [] Trauma [] Long length of stay [] ICU visit [] Other: Relational/Emotional Strength [x] Patient feels connected with others/family/visitors/staff [] Distress [] Loneliness/isolation [] Abandonment Spirituality of Patient [x] Person of Shahida [] Attends Anabaptist of their Shahida [x] Believes in Prayer [] Reads Bible or Latter Day materials [] There are Spiritual issues to be addressed Post Acute Care Nurse Practitioner Interventions [x] Prayer [x] Active listening [] Non-anxious presence [x] Spiritual/emotional support [] Crisis/trauma care [] Spiritual counseling [] Bereavement support [] Provided bereavement packet [] Provided Bible/devotional materials [] Provided toy/stuffed animal, coloring book to patient or family member [] Provided Communion [] Anointing/Josephine [] Salvation [x] Completed spiritual assessment [] Other: Impact on Illness or Injury [] Angry [] Fearful [] Anxious [] Often cries [] Exhaustion [] Unable to work [] Unable to attend taoism [] Unable to walk/stand [] Unable to read [] Unable to drive [] Unable to eat/drink [] Unable to sleep [] Unable to be with family [] Patient intubated [] Other: Summary Time spent with patient 5 min
--- NOTE | 2024-01-06 15:34 | PM.PN ---
Subjective Subjective: Patient has had several bouts of coughing today. Posttussive wheezing noted on exam. She is bringing up more phlegm compared to yesterday. Medications: Reviewed: Yes Vitals/I&O/Wt Last Vital Signs Temp 97.6 F 01/06/24 12:28 Pulse 65 01/06/24 12:28 Resp 23 H 01/06/24 12:28 BP 164/64 01/06/24 12:28 Pulse Ox 99 01/06/24 12:28 O2 Del Method Room Air 01/06/24 12:28 O2 Flow Rate 2 01/04/24 08:35 FiO2 32 01/03/24 22:56 01/06/24 01/06/24 01/06/24 06:59 14:59 22:59 Intake Total 120 / 700 520 / 520 Output Total 800 / 1150 Balance -680 / -450 520 / 520 Weight last 48 hrs Weight 42.32 kg Weight 42.184 kg Physical Exam Narrative: General: No acute distress, AO x3 HEENT: PERRLA, pupils bilaterally equal and reactive, pallors not present Chest: Normal vesicular breath sounds, no added sounds, equal good air entry bilaterally CVS: S1-S2 regular, no murmurs, no tachycardia, no gallops, no rubs Abdomen: Soft, nontender, no organomegaly, bowel sounds present Neuro: No focal deficits, no facial deformity, AO x3, power 5/5 in all limbs Data 01/06/24 04:22 01/06/24 04:22 Micro: Microbiology 01/03/24 20:57 Gram Stain - Final Sputum - Expectorated Sputum Sputum Culture - Final Pseudomonas aeruginosa P aerugino [facility] RX --------- ------ * Amikacin <=16 S * Aztreonam <=4 S * Cefepime <=8 S * Ciprofloxacin >2 R * Gentamicin <=2 S * Imipenem <=1 S * Levofloxacin >4 R * Piperacillin/Tazobactam <=16 S 01/05/24 20:26 Legionella Urinary Antigen - Final Urine,Voided Bacterial Antigens - Final A&P Assessment and plan (1) Hypoxia: (2) Diastolic congestive heart failure: Qualifiers: Heart failure chronicity: chronic Qualified Code(s): I50.32 - Chronic diastolic (congestive) heart failure (3) Aortic stenosis: Qualifiers: Cardiac valve disease etiology: nonrheumatic Qualified Code(s): I35.0 - Nonrheumatic aortic (valve) stenosis (4) Mitral regurgitation: (5) Atrial fibrillation: Qualifiers: Atrial fibrillation type: paroxysmal Qualified Code(s): I48.0 - Paroxysmal atrial fibrillation (6) Community acquired pneumonia: Plan #Acute on chronic diastolic CHF exacerbation #Right upper lobe pneumonia #Atrial fibrillation?sinus rhythm at this time, stable #Chronic anticoagulation with Eliquis #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 Chronic or recurrent pleural effusions. 2. New right upper lobe infiltrates suggesting pneumonia. 3. Chronic bronchiectasis and mucous plugging. 4. Extensive atherosclerosis. 5. Other chronic findings as described. BNP 6300. ? Continue Lasix 60 IV daily ? Continue potassium 10 daily ? Continue 2.5 Eliquis twice daily for her history of A-fib ? Continue metoprolol tartrate 25 twice daily ? Patient did recently complete ciprofloxacin course 500 twice a day for possible UTI ? I will repeat UA before starting antibiotics again. Repeat UA pending. ? Patient does not have any urinary complaints at this time. ? Continue amiodarone 200 twice daily, omeprazole, trazodone ? DuoNeb every 6 hours as needed ? Continue on ceftriaxone azithromycin. Full code Prophylaxis: On Eliquis 2.5 twice daily Wean oxygen to room air Plan for today. Patient remains afebrile and hemodynamically stable, however states that she feels very poorly. She continues to have a cough with sputum production. He sputum culture preliminarily growing gram-negative rods. Review of past culture shows patient is colonized with Pseudomonas aeruginosa as seen on cultures from September 2023. Change ceftriaxone 1 g IV every 24 hours to cefepime for added pseudomonal coverage. Continue doxycycline for atypical coverage while pending sputum cultures. Discontinue Lasix 60 mg IV every 12 hours, patient appearing to be clinically dehydrated today. Changed to Lasix 40 mg p.o. daily starting tomorrow. Assess for response with these changes. Additionally check respiratory viral panel, potentially acute viral illness may be contributing to her lethargy and weakness in which case antibiotics would not be of much help and would explain persistence of her cough and spite of outpatient oral antibiotic treatment Plan for today January 06, 2024. Patient remains afebrile, hemodynamically stable. Sputum culture updated to reflect gram-negative rods to be Pseudomonas aeruginosa resistant to ciprofloxacin. She was changed to cefepime 2 g IV every 12 hours yesterday (estimated creatinine clearance~ 30), which based on susceptibility results is appropriate. Unfortunately isolate is showing resistance to ciprofloxacin and levofloxacin therefore there is no appropriate oral options to treat the patient. Plan to treat patient with IV cefepime over the next 10 days. 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 Expect delayed clearance. Sputum cultures from September 2023 were additionally positive. Discontinue doxycycline as culprit organism likely to be Pseudomonas. Continue Lasix 40 mg p.o. daily. Clinically euvolemic today. Blood pressure trending towards hypertension, will add amlodipine 5 mg daily to her regimen. Attempting to arrange IV antibiotics at discharge at [facility] which would be the closest facility to patient's home. Family is hesitant to infuse IV antibiotics at home. Attestations Medical Necessity Statement*: Continued need for IV antibiotics, appropriate disposition planning ongoing. Coding Level of Care Code Acute Code for Chg Fwd High MDM includes number and complexity of problems actively addressed during encounter, amount and/or complexity of data reviewed/ordered and described risk of complication, morbidity or mortality of management as documented Diagnoses Hypoxia R09.02 Chronic diastolic congestive heart failure I50.32 Heart failure chronicity: chronic Nonrheumatic aortic valve stenosis I35.0 Cardiac valve disease etiology: nonrheumatic Mitral regurgitation I34.0 Paroxysmal atrial fibrillation I48.0 Atrial fibrillation type: paroxysmal Community acquired pneumonia J18.9
[2024-01-06] MEDS: amlodipine 5 mg Tablet PO (18:32)
[2024-01-06] MEDS: guaiFENesin-dextromethorphan UDC 10 mL PO (18:35)
[2024-01-06] MEDS: ipratropium-albuterol 3 mL Neb INHALATION (20:02)
[2024-01-06] MEDS: trazodone 150 mg Tablet PO (20:37)
[2024-01-06] MEDS: benzonatate 100 mg Capsule PO (22:58)
[2024-01-07] VITALS (14 sets, daily range): BP systolic 137–154; BP diastolic 56–90; PULSE 62–72; RESP 16–27; TEMP 36.6–36.9; O2SAT 95–99
[2024-01-07] MEDS: cefepime 2,000 MG in sodium chloride 0.9% (plus) 50 ML 100 MG IV ×2 (05:11→17:22)
[2024-01-07] MEDS: metoprolol tartrate 25 mg Tablet PO ×2 (06:07→17:22)
[2024-01-07] MEDS: budesonide 0.5 mg/2 mL Neb INHALATION ×2 (07:56→20:24)
[2024-01-07] MEDS: apixaban 5 mg Tablet 2.5 MG PO ×2 (09:01→17:21)
[2024-01-07] MEDS: pantoprazole DR 40 mg Tablet PO (09:02)
[2024-01-07] MEDS: amiodarone 200 mg Tablet PO ×2 (09:02→17:22)
[2024-01-07] MEDS: FUROsemide 40 mg Tablet PO (09:02)
[2024-01-07] MEDS: ferrous sulfate EC 325 mg Tablet PO ×2 (09:02→17:22)
[2024-01-07] MEDS: amlodipine 5 mg Tablet PO (09:02)
[2024-01-07] MEDS: benzonatate 100 mg Capsule PO ×2 (13:29→20:32)
--- NOTE | 2024-01-07 13:46 | P.PN_ITS ---
Subjective 2 Subjective: No new complaints today. Has intermittent bouts of cough. Currently on room air. Medications: Reviewed: Yes Vitals/I&O/Wt Last Vital Signs Temp 98.2 F 01/07/24 11:17 Pulse 70 01/07/24 11:17 Resp 27 H 01/07/24 11:17 BP 137/56 01/07/24 11:17 Pulse Ox 98 01/07/24 11:17 O2 Del Method Room Air 01/07/24 07:58 O2 Flow Rate 3 01/06/24 22:56 FiO2 32 01/06/24 22:56 01/06/24 01/07/24 01/07/24 22:59 06:59 14:59 Intake Total 270 / 790 50 / 840 120 / 120 Output Total 400 / 400 550 / 950 Balance -130 / 390 -500 / -110 120 / 120 Weight last 48 hrs Weight 42.411 kg Weight 42.32 kg Physical Exam 2 Narrative: General: No acute distress, AO x3 HEENT: PERRLA, pupils bilaterally equal and reactive, pallors not present Chest: Normal vesicular breath sounds, no added sounds, equal good air entry bilaterally CVS: S1-S2 regular, no murmurs, no tachycardia, no gallops, no rubs Abdomen: Soft, nontender, no organomegaly, bowel sounds present Neuro: No focal deficits, no facial deformity, AO x3, power 5/5 in all limbs Data 01/06/24 04:22 01/06/24 04:22 Micro: Microbiology 01/03/24 20:57 Gram Stain - Final Sputum - Expectorated Sputum Sputum Culture - Final Pseudomonas aeruginosa A&P Assessment and plan (1) Hypoxia: (2) Diastolic congestive heart failure: Qualifiers: Heart failure chronicity: chronic Qualified Code(s): I50.32 - Chronic diastolic (congestive) heart failure (3) Aortic stenosis: Qualifiers: Cardiac valve disease etiology: nonrheumatic Qualified Code(s): I35.0 - Nonrheumatic aortic (valve) stenosis (4) Mitral regurgitation: (5) Atrial fibrillation: Qualifiers: Atrial fibrillation type: paroxysmal Qualified Code(s): I48.0 - Paroxysmal atrial fibrillation (6) Community acquired pneumonia: Plan #Acute on chronic diastolic CHF exacerbation #Right upper lobe pneumonia #Atrial fibrillation?sinus rhythm at this time, stable #Chronic anticoagulation with Eliquis #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 Chronic or recurrent pleural effusions. 2. New right upper lobe infiltrates suggesting pneumonia. 3. Chronic bronchiectasis and mucous plugging. 4. Extensive atherosclerosis. 5. Other chronic findings as described. BNP 6300. ? Continue Lasix 60 IV daily ? Continue potassium 10 daily ? Continue 2.5 Eliquis twice daily for her history of A-fib ? Continue metoprolol tartrate 25 twice daily ? Patient did recently complete ciprofloxacin course 500 twice a day for possible UTI ? I will repeat UA before starting antibiotics again. Repeat UA pending. ? Patient does not have any urinary complaints at this time. ? Continue amiodarone 200 twice daily, omeprazole, trazodone ? DuoNeb every 6 hours as needed ? Continue on ceftriaxone azithromycin. Full code Prophylaxis: On Eliquis 2.5 twice daily Wean oxygen to room air Plan for today. Patient remains afebrile and hemodynamically stable, however states that she feels very poorly. She continues to have a cough with sputum production. He sputum culture preliminarily growing gram-negative rods. Review of past culture shows patient is colonized with Pseudomonas aeruginosa as seen on cultures from September 2023. Change ceftriaxone 1 g IV every 24 hours to cefepime for added pseudomonal coverage. Continue doxycycline for atypical coverage while pending sputum cultures. Discontinue Lasix 60 mg IV every 12 hours, patient appearing to be clinically dehydrated today. Changed to Lasix 40 mg p.o. daily starting tomorrow. Assess for response with these changes. Additionally check respiratory viral panel, potentially acute viral illness may be contributing to her lethargy and weakness in which case antibiotics would not be of much help and would explain persistence of her cough and spite of outpatient oral antibiotic treatment Plan for today January 06, 2024. Patient remains afebrile, hemodynamically stable. Sputum culture updated to reflect gram-negative rods to be Pseudomonas aeruginosa resistant to ciprofloxacin. She was changed to cefepime 2 g IV every 12 hours yesterday (estimated creatinine clearance~ 30), which based on susceptibility results is appropriate. Unfortunately isolate is showing resistance to ciprofloxacin and levofloxacin therefore there is no appropriate oral options to treat the patient. Plan to treat patient with IV cefepime over the next 10 days. 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 Expect delayed clearance. Sputum cultures from September 2023 were additionally positive. Discontinue doxycycline as culprit organism likely to be Pseudomonas. Continue Lasix 40 mg p.o. daily. Clinically euvolemic today. Blood pressure trending towards hypertension, will add amlodipine 5 mg daily to her regimen. Attempting to arrange IV antibiotics at discharge at [facility] center which would be the closest facility to patient's home. Family is hesitant to infuse IV antibiotics at home. Plan for today January 07, 2024. Afebrile, hemodynamically stable. Clinically no main major changes. Continuing cefepime, tolerating the antibiotic. Again there remain no oral options to treat this patient therefore cefepime is being continued, total treatment duration to be 10 days. Plan to complete 3 days of inpatient treatment on January 08, 2024, thereafter transitioning to outpatient infusions at [facility] twice a day for the remaining 7 days. Attestations 2 Medical Necessity Statement*: Continued need for IV antibiotics. Coding Level of Care Code Acute Code for Chg Fwd Moderate MDM includes number and complexity of problems actively addressed during encounter, amount and/or complexity of data reviewed/ordered and described risk of complication, morbidity or mortality of management as documented Diagnoses Hypoxia R09.02 Chronic diastolic congestive heart failure I50.32 Heart failure chronicity: chronic Nonrheumatic aortic valve stenosis I35.0 Cardiac valve disease etiology: nonrheumatic Mitral regurgitation I34.0 Paroxysmal atrial fibrillation I48.0 Atrial fibrillation type: paroxysmal Community acquired pneumonia J18.9
[2024-01-07] MEDS: trazodone 150 mg Tablet PO (20:32)
[2024-01-08 04:00] VITALS: BP 173/72; PULSE 68; RESP 16; TEMP 36.8; O2SAT 98
[2024-01-08] MEDS: amlodipine 5 mg Tablet PO ×2 (04:23→07:48)
[2024-01-08] MEDS: metoprolol tartrate 25 mg Tablet PO (04:23)
--- NOTE | 2024-01-08 04:31 | PC.NURSE ---
Pt blood pressure read 173/72 on automatic cuff upon arrival to floor. Physician notified and ordered morning doses of Metoprolol tartrate 25mg and Amlodipine 5mg be given early.
[2024-01-08] MEDS: cefepime 2,000 MG in sodium chloride 0.9% (plus) 50 ML 100 MG IV ×2 (05:05→15:47)
[2024-01-08 05:35] VITALS: PULSE 59
[2024-01-08 06:06] LABS: Basophils # 0.1 10^3/uL (0.0-0.1); Basophils % 0.8 %; Eosinophils # 0.2 10^3/uL (0.0-0.8); Eosinophils % 2.8 %; Hematocrit 30.9 % (36-47); Lymphocytes # 1.5 10^3/uL (0.8-4.8); Lymphocytes % 19.6 %; Mean Corpuscular HGB Conc 30.4 g/dL (30-55); Mean Corpuscular Hemoglobin 24.7 pg (27-33); Mean Corpuscular Volume 81.3 fl (85-98); Monocytes % 12.9 %; Neutrophils # 4.72 10^3/uL (1.8-7.7); Neutrophils % 63.5 %; Nucleated Red Blood Cells % 0 %; Platelet Count 236 10^3/cmm (157-399); Red Cell Distribution Width 17.2 % (12.1-15.1); White Blood Count 7.44 10^3/uL (3.29-11.43)
[2024-01-08 06:39] LABS: Alanine Aminotransferase 9 U/L (0-33); Albumin Level 3.3 g/dL (3.5-5.2); Alkaline Phosphatase 87 U/L (35-105); Anion Gap 14.1 (5-19); Aspartate Amino Transferase 15 U/L (0-32); Blood Urea Nitrogen 24 mg/dL (8-23); Calcium 8.7 mg/dL (8.5-10.5); Carbon Dioxide 26 mmol/L (22-29); Chloride 99 mmol/L (98-107); Creatinine Clr Calc Pharmacy 33.9668; Globulin 3.1 g/dL (1.3-4.6); Glucose 93 mg/dL (65-115); Osmolality Calculated 284 mOsm/kg (285-295); Potassium 4.1 mmol/L (3.5-5.1); Sodium 135 mmol/L (136-145); Total Bilirubin 0.2 mg/dL (0.15-1.2); Total Protein 6.4 g/dL (6.6-8.7)
[2024-01-08] MEDS: pantoprazole DR 40 mg Tablet PO (07:48)
[2024-01-08] MEDS: FUROsemide 40 mg Tablet PO (07:48)
[2024-01-08] MEDS: amiodarone 200 mg Tablet PO (07:49)
[2024-01-08] MEDS: apixaban 5 mg Tablet 2.5 MG PO (07:49)
[2024-01-08] MEDS: benzonatate 100 mg Capsule PO ×2 (07:49→15:47)
[2024-01-08] MEDS: ferrous sulfate EC 325 mg Tablet PO (07:50)
[2024-01-08 07:51] VITALS: PULSE 64; RESP 16; O2SAT 98
[2024-01-08] MEDS: budesonide 0.5 mg/2 mL Neb INHALATION (07:51)
[2024-01-08] MEDS: ipratropium-albuterol 3 mL Neb INHALATION (07:51)
[2024-01-08 08:00] VITALS: BP 143/66; PULSE 61; RESP 14; TEMP 36.6; O2SAT 97
[2024-01-08 08:05] VITALS: PULSE 62
--- NOTE | 2024-01-08 11:02 | PM.DCS ---
Discharge Providers Date of Admission: 01/05/24 17:30 Date of Discharge: January 08, 2024 Attending Provider at Admission: Monse Hensley MD Attending Provider at Discharge: Dede Rodney MD Primary Care Provider: Stoney Jo Diagnoses at Discharge Discharge Diagnosis (1) Hypoxia: Status: Acute (2) Diastolic congestive heart failure: Status: Acute Qualifiers: Heart failure chronicity: chronic Qualified Code(s): I50.32 - Chronic diastolic (congestive) heart failure (3) Aortic stenosis: Status: Acute Qualifiers: Cardiac valve disease etiology: nonrheumatic Qualified Code(s): I35.0 - Nonrheumatic aortic (valve) stenosis (4) Mitral regurgitation: Status: Acute (5) Atrial fibrillation: Status: Acute Qualifiers: Atrial fibrillation type: paroxysmal Qualified Code(s): I48.0 - Paroxysmal atrial fibrillation (6) Community acquired pneumonia: Status: Acute Reason for Visit Reason for Visit: sob Hospital Course Hospital Course Jes Durbin is a 88 year old female with past medical history of aortic stenosis status post TAVR, atrial fibrillation, mitral regurgitation, coronary artery disease, chronic diastolic congestive heart failure presented to the hospital for complaint of shortness of breath. She recently had TAVR done in November 19, 2023 in [place]. She has had a few admissions for A-fib RVR and CHF exacerbation since then. Most recently she had been discharged with Po ciprofloxacin on 12/12 for pneumonia. She also had a cough with expectoration on this admission.Ct chest showing New right upper lobe infiltrates suggesting pneumonia. Chronic bronchiectasis and mucous plugging. Sputum culture showed Pseudomonas aeruginosa which was resistant to fluoroquinolones. Patient was thereafter changed to cefepime 2 g IV every 12 hours with recovery of these results. 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 She is tolerating the antibiotics. No nausea vomiting diarrhea. She received 3 days of inpatient IV treatment in the hospital, transition to 7 days as outpatient at [facility]. Physical Exam Narrative: General: No acute distress, AO x3 HEENT: PERRLA, pupils bilaterally equal and reactive, pallors not present Chest: Normal vesicular breath sounds, no added sounds, equal good air entry bilaterally CVS: S1-S2 regular, no murmurs, no tachycardia, no gallops, no rubs Abdomen: Soft, nontender, no organomegaly, bowel sounds present Neuro: No focal deficits, no facial deformity, AO x3, power 5/5 in all limbs Discharge Data Studies Completed and Pending Completed Studies During Hospitalization Category Date Time Status CT chest con [id number] Routine Cat Scan 01/03/24 21:53 Completed XR chest 1V portable [id number] Stat Exams 01/03/24 13:59 Completed Radiology Impressions Chest X-Ray 01/03/24 13:59 IMPRESSION: 1. CHF with small bilateral pleural effusions 2. Focal area of nodularity in the lateral aspect of the right upper lung field. Could represent developing pneumonia. Could also represent fluid within the right matter fissure. Chest CT 01/03/24 21:53 IMPRESSION: 1. Chronic or recurrent pleural effusions. 2. New right upper lobe infiltrates suggesting pneumonia. 3. Chronic bronchiectasis and mucous plugging. 4. Extensive atherosclerosis. 5. Other chronic findings as described. Laboratory Results WBC 7.44 10^3/uL (3.29-11.43) 01/08/24 05:58 RBC 3.80 10^6/uL (3.85-5.65) L 01/08/24 05:58 Hgb 9.40 g/dL (11.27-16.99) L 01/08/24 05:58 Hct 30.9 % (36-47) L 01/08/24 05:58 MCV 81.3 fl (85-98) L 01/08/24 05:58 MCH 24.7 pg (27-33) L 01/08/24 05:58 MCHC 30.4 g/dL (30-55) 01/08/24 05:58 RDW 17.2 % (12.1-15.1) H 01/08/24 05:58 Plt Count 236 10^3/cmm (157-399) 01/08/24 05:58 MPV 9.0 fL (7.4-10.4) 01/08/24 05:58 Neut % (Auto) 63.5 % 01/08/24 05:58 Lymph % (Auto) 19.6 % 01/08/24 05:58 [place] % (Auto) 12.9 % 01/08/24 05:58 Eos % (Auto) 2.8 % 01/08/24 05:58 Baso % (Auto) 0.8 % 01/08/24 05:58 Neut # (Auto) 4.72 10^3/uL (1.8-7.7) 01/08/24 05:58 Lymph # (Auto) 1.5 10^3/uL (0.8-4.8) 01/08/24 05:58 [place] # (Auto) 1.0 10^3/uL (0.2-0.9) H 01/08/24 05:58 Eos # (Auto) 0.2 10^3/uL (0.0-0.8) 01/08/24 05:58 Baso # (Auto) 0.1 10^3/uL (0.0-0.1) 01/08/24 05:58 Nucleated RBC % (auto) 0 % 01/08/24 05:58 Nucleated RBCs # 0.0 /100WBC 01/08/24 05:58 Sodium 135 mmol/L (136-145) L 01/08/24 05:58 Potassium 4.1 mmol/L (3.5-5.1) 01/08/24 05:58 Chloride 99 mmol/L (98-107) 01/08/24 05:58 Carbon Dioxide 26 mmol/L (22-29) 01/08/24 05:58 Anion Gap 14.1 (5-19) 01/08/24 05:58 BUN 24 mg/dL (8-23) H 01/08/24 05:58 Creatinine 0.5 mg/dL (0.5-0.9) 01/08/24 05:58 GFR Calculation Not Reportable 01/08/24 05:58 Glucose 93 mg/dL (65-115) 01/08/24 05:58 Calculated Osmolality 284 mOsm/kg (285-295) L 01/08/24 05:58 Calcium 8.7 mg/dL (8.5-10.5) 01/08/24 05:58 Magnesium 2.0 mg/dL (1.7-2.3) 01/04/24 03:24 Total Bilirubin 0.2 mg/dL (0.15-1.2) 01/08/24 05:58 AST 15 U/L (0-32) 01/08/24 05:58 ALT 9 U/L (0-33) 01/08/24 05:58 Alkaline Phosphatase 87 U/L (35-105) 01/08/24 05:58 Troponin T Baseline 54 ng/L (0-10) H 01/03/24 14:14 Troponin T 120 Minute 53.53 ng/L (0-10) H 01/03/24 17:06 Delta Troponin T -0.47 ABS# (0-10) L 01/03/24 17:06 Troponin T Hi Sens 6Hr 55.31 ng/L (0-10) H 01/03/24 19:57 Troponin T Hi Sens 6Hr Delta 1.31 ng/L (0-12) 01/03/24 19:57 C-Reactive Protein 10.2 mg/L (0.0-4.9) H 01/03/24 14:14 NT-Pro-B Natriuret Pep 6348 pg/mL (0-450) H 01/03/24 14:14 Total Protein 6.4 g/dL (6.6-8.7) L 01/08/24 05:58 Albumin 3.3 g/dL (3.5-5.2) L 01/08/24 05:58 Globulin 3.1 g/dL (1.3-4.6) 01/08/24 05:58 Procalcitonin 0.08 ng/mL (0-0.5) 01/03/24 14:14 Procalcitonin 0.10 ng/mL (0-0.5) 01/03/24 14:14 Urine Color Straw (Yellow) 01/03/24 14:58 Urine Appearance Clear (CLEAR) 01/03/24 14:58 Urine pH 7 (5-7) 01/03/24 14:58 Ur Specific [place] 1.010 (1.005-1.030) 01/03/24 14:58 Urine Protein Neg (Negative) 01/03/24 14:58 Urine Glucose (UA) Norm (Normal) 01/03/24 14:58 Urine Ketones Negative (Negative) 01/03/24 14:58 Urine Blood 2+ (Negative) H 01/03/24 14:58 Urine Nitrate Negative (Negative) 01/03/24 14:58 Urine Bilirubin Neg (Negative) 01/03/24 14:58 Urine Urobilinogen Norm mg/dL (Negative) 01/03/24 14:58 Ur Leukocyte Esterase 2+ (Negative) H 01/03/24 14:58 Urine RBC 0-4 /hpf (0-2) H 01/03/24 14:58 Urine WBC 0-4 /hpf (0-5) H 01/03/24 14:58 Ur Squamous Epith Cells 5-10 /hpf (0-5) H 01/03/24 14:58 Amorphous Sediment Not Reportable 01/03/24 14:58 Urine Bacteria 1+ /hpf (NONE) H 01/03/24 14:58 Adenovirus (PCR) Not detected (NOT DETECT) 01/05/24 17:45 C. pneumoniae DNA (PCR) Not detected (NOT DETECT) 01/05/24 17:45 Coronavirus 229E (PCR) Not detected (NOT DETECT) 01/05/24 17:45 Human Metapneumovir PCR Not detected (NOT DETECT) 01/05/24 17:45 Influenza A (H1) PCR Not detected (NOT DETECT) 01/05/24 17:45 Influ A (H1/09) PCR Not detected (NOT DETECT) 01/05/24 17:45 Influenza A (H3) PCR Not detected (NOT DETECT) 01/05/24 17:45 Influenza Type A (PCR) Not detected (NOT DETECT) 01/05/24 17:45 Influenza Type B (PCR) Not detected (NOT DETECT) 01/05/24 17:45 M. pneumoniae (PCR) Not detected (NOT DETECT) 01/05/24 17:45 Parainfluenza 1 (PCR) Not detected (NOT DETECT) 01/05/24 17:45 Parainfluenza 2 (PCR) Not detected (NOT DETECT) 01/05/24 17:45 Parainfluenza 3 (PCR) Not detected (NOT DETECT) 01/05/24 17:45 Parainfluenza 4 (PCR) Not detected (NOT DETECT) 01/05/24 17:45 RSV Type A (PCR) Not detected (NOT DETECT) 01/05/24 17:45 RSV Type B (PCR) Not detected (NOT DETECT) 01/05/24 17:45 Entero/Rhino (PCR) Not detected (NOT DETECT) 01/05/24 17:45 SARS-CoV-2 (PCR) Not detected (NOT DETECT) 01/05/24 17:45 Vitals Last Vital Signs Temp 97.8 F 01/08/24 08:00 Pulse 62 01/08/24 08:05 Resp 14 01/08/24 08:00 BP 143/66 01/08/24 08:00 Pulse Ox 97 01/08/24 08:00 O2 Del Method Room Air 01/08/24 08:00 O2 Flow Rate 3 01/06/24 22:56 FiO2 32 01/06/24 22:56 Discharge Plan Discharge Patient Disposition: Home Condition: Stable Prescriptions: New amlodipine 5 mg Tablet 5 mg PO DAILY 30 Days Qty: 30 0RF benzonatate 100 mg Capsule 100 mg PO TID 7 Days Qty: 21 0RF Continued amiodarone 200 mg tablet 200 mg PO BID Qty: 37 0RF potassium chloride 10 mEq tablet extended release 10 meq PO DAILY Qty: 30 0RF metoprolol tartrate 25 mg tablet 25 mg PO Q12H Qty: 60 0RF furosemide 40 mg tablet 60 mg PO DAILY@0800 Qty: 45 0RF ferrous sulfate 325 mg (65 mg iron) tablet,delayed release (DR/EC) 325 mg PO BIDWM Qty: 60 0RF Eliquis 2.5 mg tablet 2.5 mg PO BID Qty: 60 0RF omeprazole 40 mg capsule,delayed release(DR/EC) 40 mg PO QAM trazodone 150 mg tablet 150 mg PO QPM albuterol sulfate [ProAir HFA] 90 mcg/actuation HFA aerosol inhaler 1 inh inhalation Q6H PRN (Reason: shortness of breath or wheezing) Qty: 8.5 0RF Discharge Orders: Discharge Order (Routine); Ordered 01/08/24 Ordered By: Dede Rodney Referrals: [facility] [Outside] - 01/09/24 8:00 am (You will report to main entrance and tell them you are there for an infusion. You are scheduled for 8:00 am and 8:00 pm. each day. ) Stoney Jo [Primary Care Provider] - 01/12/24 2:40 pm Discharge Diet: Usual diet Discharge Activity: Resume usual activity Patient Instructions: Heart Failure (DC), CHF Stoplight, Opioid Safety Discharge Attestations Time Spent in Discharge Care*: greater than 30 min Quality Metrics Clinical Quality Measures [ No reported AMI, CVA or VTE this stay] Coding Level of Care Code Acute Code for Chg Fwd Diagnoses Hypoxia R09.02 Chronic diastolic congestive heart failure I50.32 Heart failure chronicity: chronic Nonrheumatic aortic valve stenosis I35.0 Cardiac valve disease etiology: nonrheumatic Mitral regurgitation I34.0 Paroxysmal atrial fibrillation I48.0 Atrial fibrillation type: paroxysmal Community acquired pneumonia J18.9
[2024-01-08 11:41] VITALS: BP 159/51; PULSE 64; RESP 16; TEMP 36.6; O2SAT 98
== END 2024-01-08 16:28 | disposition home or self-care (01) | DRG 177 ==
LOC: ER 16:52 → CSU 18:17 → MEDSURG 01-08 04:00
PROVIDERS: Admitting Provider Internal Medicine; Emergency Provider Family Medicine; PCP Family Medicine; Visit Provider Student in an Organized Health Care Education/Training Program
DX: J15.1 Pneumonia due to Pseudomonas (principal); I50.33 Acute on chronic diastolic (congestive) heart failure; Z16.23 Resistance to quinolones and fluoroquinolones; J47.0 Bronchiectasis with acute lower respiratory infection; I48.0 Paroxysmal atrial fibrillation; I34.0 Nonrheumatic mitral (valve) insufficiency; I25.10 Atherosclerotic heart disease of native coronary artery without angina pectoris; E86.0 Dehydration; T17.990A Other foreign object in respiratory tract, part unspecified in causing asphyxiation, initial encounter; Z11.52 Encounter for screening for COVID-19; Z95.2 Presence of prosthetic heart valve; Z79.01 Long term (current) use of anticoagulants
CPT/HCPCS: 36415; 71045; 71250; 80048; 80053; 81001; 83735; 83880; 84145; 84484; 85025; 86140; 86403; 87070; 87077; 87086; 87186; 87205; 87449; 87486; 87581; 87633; 93005; 94640; 94664; 96376; 97110; 97161; 97530; A9270; G0378; J0692; J0696; J1940; J7608; J7626

== ENCOUNTER 2024-01-30 09:42 | Outpatient (CLI) | payer MEDICARE, SELFPAY ==
--- NOTE | 2024-01-30 09:47 | USCV_ITS ---
LilajamaicamleiJes Age: 89 Gender: F : 1935 Exam Date: 01/30/2024 10:04 Ordering Phys: Sina Quach MD Technologist: CT Exam Location: [facility] [place] Indication: BP: 133 / 65 HR: 58 Rhythm: Sinus Technical Quality: Adequate MEASUREMENTS (Male / Female) Normal Values 2D ECHO LVOT Diameter 1.8 cm LV Ejection Fraction MOD 2C 60.8 % LV Ejection Fraction 2C AL 60.1 % LA Diameter 4.7 cm RA Systolic Volume 4C AL 39.5 ml RA Systolic Volume 4C MOD 37.1 ml Aorta at Sinotubular Diameter 1.7 cm IVC Diameter 1.2 cm M-MODE LA Ao Ratio MM 3.2 DOPPLER AV Peak Velocity 224.0 cm/s LVOT Peak Velocity 137.0 cm/s AV Area Cont Eq vti 1.7 cm squared AV Area Cont Eq pk 1.6 cm squared MV Peak Velocity 436.3 cm/s MV Area PHT 2.0 cm squared Mitral E to A Ratio 1.5 TR Peak Velocity 300.0 cm/s TR Peak Gradient 36.0 mmHg TV Peak E Velocity 89.0 cm/s Right Atrial Pressure 3.0 mmHg Pulmonary Artery Systolic Pressu 39.0 mmHg PV Peak Velocity 102.5 cm/s FINDINGS Left Ventricle Moderate left ventricular hypertrophy. Mild diffuse hypokinesia of the left ventricle with ejection fraction of 45 to 50%.Grade III/IV diastolic dysfunction (restrictive filling pattern), severely elevated filling pressures. Right Ventricle The right ventricle is normal in size and function. Right Atrium Mildly increased right atrial size. Left Atrium Moderately increased left atrial size. Mitral Valve Moderate mitral annular calcification. Moderately severe eccentric mitral regurgitation with the regurgitant jet directed anteriorly. Prolapse of the posterior mitral leaflet. Aortic Valve The bioprosthetic valve in the aortic position appears to be well-seated. Leaflet appears to be minimally thickened. The peak velocity of 2.2 m/s the valve area was calculated to be 1.7 cm squared Tricuspid Valve Mild tricuspid valve regurgitation. Pulmonic Valve No gross abnormalities noted Pericardium No pericardial effusion. Aorta Normal ascending aorta dimension. IVC Normal inferior vena cava. CONCLUSIONS Moderate left ventricular hypertrophy. Mild diffuse hypokinesia of the left ventricle with ejection fraction of 45 to 50%.Grade III/IV diastolic dysfunction (restrictive filling pattern), severely elevated filling pressures. The bioprosthetic valve in the aortic position appears to be well-seated. Leaflet appears to be minimally thickened. The peak velocity of 2.2 m/s the valve area was calculated to be 1.7 cm squared. Moderate mitral annular calcification. Moderately severe eccentric mitral regurgitation with the regurgitant jet directed anteriorly. Prolapse of the posterior mitral leaflet. Mild tricuspid valve regurgitation. Estimated pulmonary artery peak systolic pressure 39 mmHg. There is no pericardial effusion. There are no intracardiac masses. Compared to the study from 12/01/2023, there is slight drop in the LV ejection fraction Dr Cesar Kessler MD FAC (Electronically Signed) Final Date: 30 January 2024 16:41 S
== END 2024-01-30 09:43 | disposition home or self-care (01) ==
LOC: RAD 09:42
PROVIDERS: PCP Family Medicine; Visit Provider Student in an Organized Health Care Education/Training Program
DX: I08.3 Combined rheumatic disorders of mitral, aortic and tricuspid valves (principal); Z95.2 Presence of prosthetic heart valve
CPT/HCPCS: 93306

== ENCOUNTER → 2024-02-18 12:43 | Outpatient (BNVA) | payer MEDICARE, SELFPAY | PROVIDERS: PCP Family Medicine; Visit Provider Internal Medicine | DX: I35.0 Nonrheumatic aortic (valve) stenosis (principal); I50.32 Chronic diastolic (congestive) heart failure; I48.0 Paroxysmal atrial fibrillation; I34.0 Nonrheumatic mitral (valve) insufficiency | CPT/HCPCS: 99214 ==

== ENCOUNTER 2024-07-09 12:11 | Observation (INO) | payer MEDICARE, SELFPAY ==
[2024-07-09] VITALS (13 sets, daily range): BP systolic 137–179; BP diastolic 67–127; PULSE 80–115; RESP 17–24; TEMP 36.4–36.7; O2SAT 93–99; BMI 17.6; BMI 19.5
--- NOTE | 2024-07-09 13:01 | XR_ITS ---
WS: [id number] Portable AP upright chest, 07/09/2024 Clinical Data: sob Comparison: Portable chest, 01/03/2024 Findings: There are patchy bibasilar opacities. The opacities probably represent pleural effusions, a telectasis and possible pneumonia. The heart is enlarged. There is an artificial aortic valve in the heart. The aortic arch shows calcification and tortuosity. The upper lobes show mild pulmonary vascul ar congestion. No pneumothorax is seen. There is osteoarthritis of both shoulders. There are monitor leads on the chest wall. XR/XR chest 1V portable [id number] Impression: 1. Patchy bibasilar opacities. 2. Cardiomegaly with mild pulmonary vascular congestion. 3. Atherosclerosis.
--- NOTE | 2024-07-09 13:32 | ECG_ITS ---
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
--- NOTE | 2024-07-09 13:33 | ED_ITS ---
<Statement entered by Tamir Mancini DO - 07/09/24 16:20> This patient was seen and cared for by REZA Mclauhglin. I was one of the emergency department physicians on duty at the time this patient was in the emergency department. This case was discussed with the in real-time and reviewed with the hospitalist for admission. I agree with the plan of care as outlined in his chart. I did not personally see or evaluate this patient. HPI - SOB/Dyspnea 2 General: Chief Complaint: Shortness of Breath/Dyspnea Stated Complaint: SOB Time Seen by Provider: 07/09/24 13:00 Source: patient and family Mode of arrival: wheelchair Limitations: no limitations History of Present Illness: HPI Narrative: Patient is an 89 year old female with past medical history of aortic stenosis status post TAVR, atrial fibrillation on amiodarone/metoprolol (not on anticoagulation-took herself off Eliquis), mitral regurgitation, coronary artery disease, chronic diastolic congestive heart failure (last echo 01/2024 with EF of 45-50%) here for complaints of dyspnea. She states she feels significantly winded with minimal exertion and lying flat. States she has not slept well in days because she has to prop herself up. Family states she has been seen by her PCP Dr. Jo several times recently and has been placed on antibiotics, new inhaler/Trelegy and lasix and continues to feel unwell. She did have several hospitalizations earlier this year for similar symptoms. No fevers. Does complain of post nasal drainage. MD elicited complaint: shortness of breath and cough Pertinent past history: congestive heart failure and pneumonia Onset (ago): week(s) Timing: constant Severity: moderate Exacerbating factors: lying flat and exertion Relieving factors: nothing Known history of: congestive heart failure Associated symptoms: Reports chest congestion and orthopnea; Deny abdominal pain, chest pain, dizziness, extremity pain, fever(s), hemoptysis, nausea, syncope or vomiting Related Data Home Medications Medication Instructions Recorded Confirmed omeprazole 40 mg capsule,delayed 40 mg PO QAM 08/21/23 07/09/24 release trazodone 150 mg tablet 150 mg PO QPM 08/21/23 07/09/24 albuterol sulfate 90 mcg/actuation 2 puff inhalation Q4H PRN 07/09/24 07/09/24 aerosol inhaler Shortness Of Breath Or Wheezing aspirin 81 mg tablet,delayed 81 mg PO DAILY 07/09/24 07/09/24 release calcium carbonate 600 mg-vitamin 1 tab PO QPM 07/09/24 07/09/24 D3 5 mcg (200 unit) tablet ferrous sulfate 325 mg (65 mg 325 mg PO BID 07/09/24 07/09/24 iron) tablet,delayed release fluticasone fur. 100 mcg-umeclid 1 inh inhalation BID 07/09/24 07/09/24 62.5 mcg-vilant 25 mcg inhalat.powder (Trelegy Ellipta) furosemide 20 mg tablet 20 mg PO DAILY 07/09/24 07/09/24 lactobacillus combination no.4 3 3,000 mmu cells PO QPM 07/09/24 07/09/24 billion cell capsule (Probiotic) Previous Rx's Medication Instructions Recorded potassium chloride 10 mEq 10 meq PO DAILY #90 tabs 02/12/24 tablet,extended release amiodarone 200 mg tablet 200 mg PO DAILY #90 tabs 02/16/24 metoprolol succinate 25 mg 25 mg PO DAILY #90 tabs 02/18/24 tablet,extended release 24 hr Allergies Allergy/AdvReac Type Severity Reaction Status Date / Time Penicillins Allergy Unknown Unknown Verified 07/09/24 12:21 Review of Systems 2 Const: Denies: fever(s), chills, body aches, fatigue or malaise Card: Reports: irregular heart rhythm, dyspnea on exertion and orthopnea; Denies: chest pain, edema, swelling of feet/ankles, syncope, pre-syncope, leg pain with exertion or acrocyanosis Resp: Reports: dyspnea, productive cough and chest congestion; Denies: wheezing or hemoptysis GI: Denies: abdominal pain, nausea, vomiting or diarrhea Musc: Denies: neck pain, back pain, extremity pain, extremity swelling, joint pain or joint swelling Skin/Breast: Denies: rash Neuro: Denies: headache(s), numbness in extremities, weakness in extremities, sensory changes or dizziness PFSH ED 2 PFSH: Medical History Atrial fibrillation Mitral regurgitation Coronary artery disease CHF exacerbation Diastolic congestive heart failure Aortic stenosis Surgical History S/P TAVR (transcatheter aortic valve replacement) History of coronary angiogram Social History Smoking and tobacco/nicotine status: never used tobacco/nicotine Second hand smoke exposure: No Alcohol intake: never Substance/Drug Use: never Lives independently: Yes Physical Exam 2 Const: COMMON NORMALS: no acute distress, average body habitus, patient oriented x3, no limitations, healthy appearing, alert and well nourished G ENERAL APPEARANCE: cooperative ORIENTATION/CONSCIOUSNESS: Yes awake, Yes oriented to person, Yes oriented to place and Yes oriented to time HENMT: COMMON NORMALS: normocephalic and atraumatic HEAD & SCALP: normal to inspection, normocephalic and atraumatic Neck/C-Spine: COMMON NORMALS: no JVD Chest: COMMONS NORMALS: normal inspection of the chest and normal palpation of entire chest wall Resp: COMMON NORMALS: normal respiratory effort AUSCULTATION: crackles and rhonchi Cardio: COMMON NORMALS: no JVD and regular rate RATE: regular rate and Other (ranges from 90s-110s) RHYTHM: abnormal rhythm irregularly irregular GI: COMMON NORMALS: Normal to inspection, nondistended, normoactive bowel sounds present, Soft to palpation and non-tender PALPATION: Yes Soft to palpation Extremity: COMMON NORMALS: no clubbing, cyanosis or edema, no calf tenderness and no pedal edema GENERAL: Yes normal exam except as noted Neuro: ELMER COMA SCALE: document GCS findings Ledbetter coma scale eye opening: Spontaneous Ledbetter coma scale verbal response: Orientated Elmer coma scale motor response: Obey commands Ledbetter coma scale total score: 15 COMMON NORMALS: patient oriented x3, moves all extremities, no focal motor deficits and no sensory deficits noted SENSORIUM/ORIENTATION: Yes alert, Yes oriented to person, Yes oriented to place and Yes oriented to time Skin: COMMON NORMALS: no rashes or lesions noted GENERAL SKIN EXAM: no rashes or lesions noted Course 2 Vital Signs: Vital signs: Vital Signs Temperature 98.0 F 07/09/24 12:18 Pulse Rate 85 07/09/24 15:59 Respiratory Rate 24 H 07/09/24 15:52 Blood Pressure 165/127 07/09/24 15:52 Pulse Oximetry 93 07/09/24 15:52 Oxygen Delivery Me thod Room Air 07/09/24 15:52 MDM - SOB/Dyspnea Medical Decision Making Patient is an 89-year-old female here for progressively worsening dyspnea. She appears to be fluid overloaded. She has a-fib with RVR. I get is reasonable to keep her in the hospital at this time as she has failed outpatient therapy through her PCP. Medical Records I reviewed the patient's medical records. Lab Data I reviewed the patient's lab results. 07/09/24 13:43 07/09/24 13:43 Labs/Radiology: Radiology Impressions Chest X-Ray 07/09/24 13:01 Impression: 1. Patchy bibasilar opacities. 2. Cardiomegaly with mild pulmonary vascular congestion. 3. Atherosclerosis. Chest CTA 07/09/24 14:42 IMPRESSION: 1. No pulmonary embolism. 2. Small bilateral pleural effusions, LEFT greater than RIGHT. 3. Mild pulmonary edema. 4. Marked enlargement of the LEFT heart chambers. Laboratory Results WBC 6.84 10^3/uL (3.29-11.43) 07/09/24 13:43 RBC 4.71 10^6/uL (3.85-5.65) 07/09/24 13:43 Hgb 12.10 g/dL (11.27-16.99) 07/09/24 13:43 Hct 39.9 % (36-47) 07/09/24 13:43 MCV 84.7 fl (85-98) L 07/09/24 13:43 MCH 25.7 pg (27-33) L 07/09/24 13:43 MCHC 30.3 g/dL (30-55) 07/09/24 13:43 RDW 16.3 % (12.1-15.1) H 07/09/24 13:43 Plt Count 222 10^3/cmm (157-399) 07/09/24 13:43 MPV 10.0 fL (7.4-10.4) 07/09/24 13:43 Neut % (Auto) 64.0 % 07/09/24 13:43 Lymph % (Auto) 23.4 % 07/09/24 13:43 Coles % (Auto) 10.1 % 07/09/24 13:43 Eos % (Auto) 1.2 % 07/09/24 13:43 Baso % (Auto) 1.0 % 07/09/24 13:43 Neut # (Auto) 4.38 10^3/uL (1.8-7.7) 07/09/24 13:43 Lymph # (Auto) 1.6 10^3/uL (0.8-4.8) 07/09/24 13:43 Coles # (Auto) 0.7 10^3/uL (0.2-0.9) 07/09/24 13:43 Eos # (Auto) 0.1 10^3/uL (0.0-0.8) 07/09/24 13:43 Baso # (Auto) 0.1 10^3/uL (0.0-0.1) 07/09/24 13:43 Nucleated RBC % (auto) 0 % 07/09/24 13:43 Nucleated RBCs # 0.0 /100WBC 07/09/24 13:43 Sodium 135 mmol/L (136-145) L 07/09/24 13:43 Potassium 4.1 mmol/L (3.5-5.1) 07/09/24 13:43 Chloride 99 mmol/L (98-107) 07/09/24 13:43 Carbon Dioxide 23 mmol/L (22-29) 07/09/24 13:43 Anion Gap 17.1 (5-19) 07/09/24 13:43 BUN 17 mg/dL (8-23) 07/09/24 13:43 Creatinine 0.7 mg/dL (0.5-0.9) 07/09/24 13:43 GFR Calculation Not Reportable 07/09/24 13:43 Glucose 92 mg/dL (65-115) 07/09/24 13:43 Calculated Osmolality 281 mOsm/kg (285-295) L 07/09/24 13:43 Calcium 9.9 mg/dL (8.5-10.5) 07/09/24 13:43 Total Bilirubin 0.4 mg/dL (0.15-1.2) 07/09/24 13:43 AST 28 U/L (0-32) 07/09/24 13:43 ALT 18 U/L (0-33) 07/09/24 13:43 Alkaline Phosphatase 122 U/L (35-105) H 07/09/24 13:43 NT-Pro-B Natriuret Pep 9917 pg/mL (0-450) H 07/09/24 13:43 Total Protein 7.4 g/dL (6.6-8.7) 07/09/24 13:43 Albumin 4.2 g/dL (3.5-5.2) 07/09/24 13:43 Globulin 3.2 g/dL (1.3-4.6) 07/09/24 13:43 Procalcitonin 0.07 ng/mL (0-0.5) 07/09/24 13:43 Adenovirus (PCR) Not detected (NOT DETECT) 07/09/24 13:47 C. pneumoniae DNA (PCR) Not detected (NOT DETECT) 07/09/24 13:47 Coronavirus 229E (PCR) Not detected (NOT DETECT) 07/09/24 13:47 Human Metapneumovir PCR Not detected (NOT DETECT) 07/09/24 13:47 Influenza A (H1) PCR Not detected (NOT DETECT) 07/09/24 13:47 Influ A (H1/09) PCR Not detected (NOT DETECT) 07/09/24 13:47 Influenza A (H3) PCR Not detected (NOT DETECT) 07/09/24 13:47 Influenza Type A (PCR) Not detected (NOT DETECT) 07/09/24 13:47 Influenza Type B (PCR) Not detected (NOT DETECT) 07/09/24 13:47 M. pneumoniae (PCR) Not detected (NOT DETECT) 07/09/24 13:47 Parainfluenza 1 (PCR) Not detected (NOT DETECT) 07/09/24 13:47 Parainfluenza 2 (PCR) Not detected (NOT DETECT) 07/09/24 13:47 Parainfluenza 3 (PCR) Not detected (NOT DETECT) 07/09/24 13:47 Parainfluenza 4 (PCR) Not detected (NOT DETECT) 07/09/24 13:47 RSV Type A (PCR) Not detected (NOT DETECT) 07/09/24 13:47 RSV Type B (PCR) Not detected (NOT DETECT) 07/09/24 13:47 Entero/Rhino (PCR) Not detected (NOT DETECT) 07/09/24 13:47 SARS-CoV-2 (PCR) Not detected (NOT DETECT) 07/09/24 13:47 All radiology interpretation(s) finalized by discharge Discharge Plan Discharge Patient Disposition: Admitted As Inpatient Clinical Impression: Atrial fibrillation with rapid ventricular response, Acute exacerbation of CHF (congestive heart failure) Condition: Stable Prescriptions: No Action omeprazole 40 mg capsule,delayed release(DR/EC) 40 mg PO QAM trazodone 150 mg tablet 150 mg PO QPM metoprolol succinate 25 mg tablet extended release 24 hr 25 mg PO DAILY Qty: 90 3RF potassium chloride 10 mEq tablet extended release 10 meq PO DAILY Qty: 90 3RF amiodarone 200 mg tablet 200 mg PO DAILY Qty: 90 3RF Calcium + D 600 mg-5 mcg (200 unit) Tablet 1 tab PO QPM Aspir-81 81 mg Tablet,Delayed Release (Dr/Ec) 81 mg PO DAILY albuterol sulfate 90 mcg/actuation HFA aerosol inhaler 2 puff INHALATION Q4H PRN (Reason: Shortness Of Breath Or Wheezing) Probiotic 3 billion cell Capsule 3,000 mmu cells PO QPM Rx Instructions: administer with a meal Trelegy Ellipta 100-62.5-25 mcg blister with device 1 inh INHALATION BID furosemide 20 mg tablet 20 mg PO DAILY ferrous sulfate 325 mg (65 mg iron) tablet,delayed release (DR/EC) 325 mg PO BID Referrals: Stoney Jo [Primary Care Provider] - Coding Level of Care Code ED Spearer for Zully Beard
--- NOTE | 2024-07-09 13:44 | PC.PHAR ---
Pts' guardian states pt has been taken off of Eliquis 2.5mg bid. Started aspirin 81mg daily
[2024-07-09 13:50] LABS: Basophils # 0.1 10^3/uL (0.0-0.1); Eosinophils # 0.1 10^3/uL (0.0-0.8); Eosinophils % 1.2 %; Hematocrit 39.9 % (36-47); Lymphocytes # 1.6 10^3/uL (0.8-4.8); Lymphocytes % 23.4 %; Mean Corpuscular HGB Conc 30.3 g/dL (30-55); Mean Corpuscular Hemoglobin 25.7 pg (27-33); Mean Corpuscular Volume 84.7 fl (85-98); Monocytes # 0.7 10^3/uL (0.2-0.9); Monocytes % 10.1 %; Neutrophils # 4.38 10^3/uL (1.8-7.7); Nucleated Red Blood Cells % 0 %; Platelet Count 222 10^3/cmm (157-399); Red Blood Count 4.71 10^6/uL (3.85-5.65); Red Cell Distribution Width 16.3 % (12.1-15.1); White Blood Count 6.84 10^3/uL (3.29-11.43)
[2024-07-09 14:15] LABS: NT Pro B Type Natriuretic Pept 9917 pg/mL (0-450); Procalcitonin 0.07 ng/mL (0-0.5)
[2024-07-09 14:26] LABS: Alanine Aminotransferase 18 U/L (0-33); Albumin Level 4.2 g/dL (3.5-5.2); Alkaline Phosphatase 122 U/L (35-105); Anion Gap 17.1 (5-19); Aspartate Amino Transferase 28 U/L (0-32); Blood Urea Nitrogen 17 mg/dL (8-23); Calcium 9.9 mg/dL (8.5-10.5); Carbon Dioxide 23 mmol/L (22-29); Chloride 99 mmol/L (98-107); Creatinine Clr Calc Pharmacy 32.8355; Globulin 3.2 g/dL (1.3-4.6); Glucose 92 mg/dL (65-115); Osmolality Calculated 281 mOsm/kg (285-295); Potassium 4.1 mmol/L (3.5-5.1); Sodium 135 mmol/L (136-145); Total Bilirubin 0.4 mg/dL (0.15-1.2); Total Protein 7.4 g/dL (6.6-8.7)
--- NOTE | 2024-07-09 14:42 | CT_ITS ---
WS: [id number] CT CHEST ANGIOGRAPHY WITH REFORMATS HISTORY: dyspnea TECHNIQUE: Contiguous axial images are obtained through the chest during arterial injection of intrav enous contrast. Images are reconstructed to evaluate the pulmonary arteries. MIP imaging also reviewe d. All CT scans at [facility] use at least one of these dose optimization techniques: automat ed exposure control; mA and/or kV adjustment per patient size (includes targeted exams where dose is matched to clinical indication); or iterative reconstruction. CONTRAST: Omnipaque 350; 100 mL IV. DLP: 191.76 mGy COMPARISON: Chest CT 01/03/2024 Good opacification of the pulmonary arteries. No pulmonary emboli identified. Pulmonary artery is mil dly dilated. Atherosclerosis aorta. Aortic valve stent graft is noted. Marked enlargement of the LEFT heart chambers Small layering bilateral pleural effusions, LEFT greater than RIGHT. Chronic emphysema. Hazy attenuat ion throughout both lungs is likely secondary to pulmonary edema. Compressive atelectasis LEFT lung b ase. Tricuspid regurgitation into the hepatic veins. Extensive vascular calcifications suprarenal aor ta and splenic artery. Hepatic cyst reidentified. No adrenal mass. Increase in thoracic kyphosis. CT/CT angio chest PE protcl [id number] IMPRESSION: 1. No pulmonary embolism. 2. Small bilateral pleural effusions, LEFT greater than RIGHT. 3. Mild pulmonary edema. 4. Marked enlargement of the LEFT heart chambers.
[2024-07-09] MEDS: iohexol 350 mg/mL 500 mL Btl (per mL) IV (15:10)
[2024-07-09 15:42] LABS: Adenovirus Not Detected (NOT DETECT); Chlamydia Pneumoniae Not Detected (NOT DETECT); Coronavirus 229E,HKU1,NL63,OC4 Not Detected (NOT DETECT); Human Metapneumovirus Not Detected (NOT DETECT); Human Rhinovirus/Enterovirus Not Detected (NOT DETECT); Influenza A Not Detected (NOT DETECT); Influenza A H1 Not Detected (NOT DETECT); Influenza A H1-2009 Not Detected (NOT DETECT); Influenza A H3 Not Detected (NOT DETECT); Influenza B Not Detected (NOT DETECT); Mycoplasma Pneumoniae Not Detected (NOT DETECT); Parainfluenza Virus Type 1 Not Detected (NOT DETECT); Parainfluenza Virus Type 2 Not Detected (NOT DETECT); Parainfluenza Virus Type 3 Not Detected (NOT DETECT); Parainfluenza Virus Type 4 Not Detected (NOT DETECT); Respiratory Syncytial Virus A Not Detected (NOT DETECT); Respiratory Syncytial Virus B Not Detected (NOT DETECT); SARS-COV-2 Not Detected (NOT DETECT)
[2024-07-09] MEDS: dilTIAZem 5 mg/mL SDV 5 mL 10 MG IVP (15:58)
--- NOTE | 2024-07-09 16:09 | ECG_ITS ---
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1935 Requested By: Selene Ortega Order Number: [id number] Reading MD: EMERSON LIZARRAGA Measurements Intervals [place] Rate: 107 P: 0 AL: 0 QRS: -53 QRSD: 130 T: 107 QT: 383 QTc: 512 Interpretive Statements Sinus tachycardia LEFT AXIS DEVIATION [QRS AXIS < -30] LEFT BUNDLE BRANCH BLOCK [120+ ms QRS DURATION, 80+ ms Q/S IN V1/V2, 85+ ms R IN I/aVL/V5/V6] Compared to ECG 07/09/2024 12:16:23 Ventricular premature complex(es) now present Aberrant conduction of supraventricular beat(s) now present Left-axis deviation now present Electronically Signed On 07-10-2024 00:10:27 CDT by EMERSON LIZARRAGA [id number] f
--- NOTE | 2024-07-09 16:39 | P.HP_ITS ---
Providers/Chief Complaint 2 Primary Care Provider: Stoney Jo Chief Complaint: SOB History of Present Illness Jes Durbin is a 89 year old female with history of diastolic CHF, aortic stenosis status post TAVR, present to the hospital with chief complaint of worsening shortness of breath. 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 D-dimer was high as CTA was done which did not show PE it is consistent with vascular congestion Review of Systems 2 Const: Denies: fever(s) Eyes: Denies: change in vision Card: Reports: dyspnea on exertion GI: Denies: abdominal pain Medications/Allergies Home Medications Medication Instructions Recorded Confirmed Last Taken Type omeprazole 40 mg capsule,delayed 40 mg PO QAM 08/21/23 07/09/24 07/09/24 History release trazodone 150 mg tablet 150 mg PO QPM 08/21/23 07/09/24 07/08/24 History potassium chloride 10 mEq 10 meq PO DAILY #90 tabs 02/12/24 07/09/24 07/09/24 Rx tablet,extended release amiodarone 200 mg tablet 200 mg PO DAILY #90 tabs 02/16/24 07/09/24 07/09/24 Rx metoprolol succinate 25 mg 25 mg PO DAILY #90 tabs 02/18/24 07/09/24 07/09/24 Rx tablet,extended release 24 hr albuterol sulfate 90 mcg/actuation 2 puff inhalation Q4H PRN 07/09/24 07/09/24 Unknown History aerosol inhaler Shortness Of Breath Or Wheezing aspirin 81 mg tablet,delayed 81 mg PO DAILY 07/09/24 07/09/24 07/09/24 History release calcium carbonate 600 mg-vitamin 1 tab PO QPM 07/09/24 07/09/24 07/08/24 History D3 5 mcg (200 unit) tablet ferrous sulfate 325 mg (65 mg 325 mg PO BID 07/09/24 07/09/24 07/09/24 History iron) tablet,delayed release fluticasone fur. 100 mcg-umeclid 1 inh inhalation BID 07/09/24 07/09/24 07/09/24 History 62.5 mcg-vilant 25 mcg inhalat.powder (Trelegy Ellipta) furosemide 20 mg tablet 20 mg PO DAILY 07/09/24 07/09/24 07/09/24 History lactobacillus combination no.4 3 3,000 mmu cells PO QPM 07/09/24 07/09/24 07/08/24 History billion cell capsule (Probiotic) Allergies Allergy/AdvReac Type Severity Reaction Status Date / Time Penicillins Allergy Unknown Unknown Verified 07/09/24 12:21 PFSH Acute 2 PFSH: Medical History Atrial fibrillation Mitral regurgitation Coronary artery disease CHF exacerbation Diastolic congestive heart failure Aortic stenosis Surgical History S/P TAVR (transcatheter aortic valve replacement) History of coronary angiogram Social History Smoking and tobacco/nicotine status: never used tobacco/nicotine Second hand smoke exposure: No Alcohol intake: never Substance/Drug Use: never Lives independently: Yes Vitals/I&O/Wt Last Vital Signs Temp 98.0 F 07/09/24 12:18 Pulse 83 07/09/24 16:17 Resp 24 H 07/09/24 15:52 BP 137/76 07/09/24 16:17 Pulse Ox 99 07/09/24 16:17 O2 Del Method Room Air 07/09/24 16:17 Weight last 48 hrs Weight 40.823 kg Physical Exam 2 Narrative: Clinically does not look fluid overloaded Currently on room air Hemodynamically stable A-fib without RVR GCS 15 Pleasant cooperative Lower extremity no edema Daughter at the bedside No active chest pain Data 07/09/24 13:43 07/09/24 13:43 A&P Assessment and plan (1) Diastolic congestive heart failure: Qualifiers: Heart failure chronicity: chronic Qualified Code(s): I50.32 - Chronic diastolic (congestive) heart failure (2) Atrial fibrillation: Qualifiers: Atrial fibrillation type: paroxysmal Qualified Code(s): I48.0 - Paroxysmal atrial fibrillation (3) Bronchiectasis: Plan Acute diastolic CHF exacerbation Likely bronchitis related Will add doxycycline Start IV Lasix Continue AV chema blocking agents, patient has history of TAVR Patient history of bronchiectasis with mucous plugs previous sputum culture shows Pseudomonas Considering her age she will be put on Eliquis 2.5 mg twice daily for A-fib Attestations 2 Medical Necessity Statement*: Anticipating discharge within 48 hours Diagnoses Chronic diastolic congestive heart failure I50.32 Heart failure chronicity: chronic Paroxysmal atrial fibrillation I48.0 Atrial fibrillation type: paroxysmal Bronchiectasis J47.9
[2024-07-09] MEDS: FUROsemide 10 mg/mL SDV 10mL 60 MG IVP (16:51)
[2024-07-09 17:00] LABS: Troponin(5th) Baseline 26 ng/L (0-10)
[2024-07-09 17:01] LABS: Troponin 5 2HR 24.76 ng/L (0-10); Troponin 5 2HR Delta -1.24 ABS# (0-10)
[2024-07-09 17:23] LABS: D Dimer 1.55 ug/mLFEU (0-0.59)
--- NOTE | 2024-07-09 18:11 | ECG_ITS ---
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1935 Requested By: Selene Ortega Order Number: [id number] Reading MD: EMERSON LIZARRAGA Measurements Intervals [place] Rate: 94 P: 0 UT: 0 QRS: 13 QRSD: 127 T: 126 QT: 409 QTc: 512 Interpretive Statements Sinus rythm LEFT BUNDLE BRANCH BLOCK [120+ ms QRS DURATION, 80+ ms Q/S IN V1/V2, 85+ ms R IN I/aVL/V5/V6] Compared to ECG 07/09/2024 15:10:42 Ventricular premature complex(es) no longer present Aberrant conduction of supraventricular beat(s) no longer present Left-axis deviation no longer present Electronically Signed On 07-10-2024 00:14:02 CDT by EMERSON LIZARRAGA [id number]
[2024-07-09] MEDS: ipratropium-albuterol 3 mL Neb INHALATION ×2 (18:15→23:15)
[2024-07-09] MEDS: apixaban 5 mg Tablet 2.5 MG PO (21:36)
[2024-07-09] MEDS: cefepime 2,000 MG in sodium chloride 0.9% (plus) 50 ML 100 MG IV (21:36)
--- NOTE | 2024-07-09 23:09 | ECG_ITS ---
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
[2024-07-09] MEDS: trazodone 150 mg Tablet PO (23:49)
[2024-07-10] VITALS (9 sets, daily range): BP systolic 120–156; BP diastolic 63–80; PULSE 56–111; RESP 14–18; TEMP 36.5–36.8; O2SAT 93–98
[2024-07-10 05:27] LABS: Basophils # 0.1 10^3/uL (0.0-0.1); Basophils % 1.1 %; Eosinophils # 0.2 10^3/uL (0.0-0.8); Eosinophils % 2.5 %; Hematocrit 36.5 % (36-47); Lymphocytes # 1.8 10^3/uL (0.8-4.8); Lymphocytes % 28.6 %; Mean Corpuscular HGB Conc 29.9 g/dL (30-55); Mean Corpuscular Volume 87.1 fl (85-98); Mean Platelet Volume 10.1 fL (7.4-10.4); Monocytes # 0.8 10^3/uL (0.2-0.9); Monocytes % 11.8 %; Neutrophils # 3.52 10^3/uL (1.8-7.7); Neutrophils % 55.7 %; Nucleated Red Blood Cells % 0 %; Platelet Count 155 10^3/cmm (157-399); Red Blood Count 4.19 10^6/uL (3.85-5.65); Red Cell Distribution Width 16.4 % (12.1-15.1); White Blood Count 6.33 10^3/uL (3.29-11.43)
[2024-07-10 05:45] LABS: Blood Urea Nitrogen 22 mg/dL (8-23); Calcium 9.2 mg/dL (8.5-10.5); Carbon Dioxide 25 mmol/L (22-29); Chloride 100 mmol/L (98-107); Creatinine Clr Calc Pharmacy 28.2959; Glucose 98 mg/dL (65-115); Osmolality Calculated 287 mOsm/kg (285-295); Sodium 137 mmol/L (136-145)
[2024-07-10 05:56] LABS: Anion Gap 15.8 (5-19); Potassium 3.8 mmol/L (3.5-5.1)
[2024-07-10] MEDS: ipratropium-albuterol 3 mL Neb INHALATION (07:29)
[2024-07-10] MEDS: doxycycline 100 mg Tablet PO ×2 (09:01→18:29)
[2024-07-10] MEDS: amiodarone 200 mg Tablet PO (09:01)
[2024-07-10] MEDS: sennosides-docusate Tablet 1 TAB PO (09:02)
[2024-07-10] MEDS: metoprolol tartrate 25 mg Tablet PO ×2 (09:02→20:02)
[2024-07-10] MEDS: potassium chloride ER 10 mEq Tablet PO (09:02)
[2024-07-10] MEDS: pantoprazole DR 40 mg Tablet PO (09:02)
[2024-07-10] MEDS: FUROsemide 10 mg/mL SDV 10mL 40 MG IVP (09:08)
[2024-07-10] MEDS: cefepime 2,000 MG in sodium chloride 0.9% (plus) 50 ML 100 MG IV ×2 (09:08→20:03)
[2024-07-10] MEDS: apixaban 5 mg Tablet 2.5 MG PO ×2 (09:10→20:02)
--- NOTE | 2024-07-10 09:30 | P.PN_ITS ---
Subjective 2 Subjective: Patient is doing well sitting at the bedside Stating that she gets short of breath on mild exertion Clinically looks euvolemic Looks very comfortable at the bedside eating breakfast No active chest pain Vitals/I&O/Wt Last Vital Signs Temp 98.0 F 07/10/24 08:00 Pulse 90 07/10/24 08:00 Resp 17 07/10/24 08:00 BP 156/73 07/10/24 08:00 Pulse Ox 98 07/10/24 08:00 O2 Del Method Room Air 07/10/24 08:00 07/09/24 07/10/24 07/10/24 22:59 06:59 14:59 Intake Total 50 / 50 Output Total 200 / 200 Balance 50 / 50 -200 / -150 Weight last 48 hrs Weight 42.297 kg Weight 40.823 kg Weight 40.823 kg Physical Exam 2 Narrative: Hemodynamically stable Bilateral breath sounds without any rhonchi or wheezing GCS 15 No active signs of fluid overload Clinically looks euvolemic Pleasant cooperative S1, S2 A-fib without RVR Hypertensive Data 07/10/24 04:33 07/10/24 04:33 A&P Assessment and plan (1) Diastolic congestive heart failure: Qualifiers: Heart failure chronicity: chronic Qualified Code(s): I50.32 - Chronic diastolic (congestive) heart failure (2) Aortic stenosis: Qualifiers: Cardiac valve disease etiology: nonrheumatic Qualified Code(s): I35.0 - Nonrheumatic aortic (valve) stenosis (3) Mitral regurgitation: (4) Atrial fibrillation: Qualifiers: Atrial fibrillation type: paroxysmal Qualified Code(s): I48.0 - Paroxysmal atrial fibrillation (5) Atrial fibrillation with rapid ventricular response: (6) Bronchiectasis: Plan 89-year-old female with diastolic CHF, TAVR, A-fib, was admitted for diastolic CHF exacerbation not requiring oxygen, previous sputum culture was positive for Pseudomonas I have kept her on cefepime in the hospital and doxycycline Diastolic CHF exacerbation Patient endorsing slightly feeling better Wanting to wait 1 more day before going home I will continue IV Lasix 40 mg daily Patient will need p.o. Lasix on as-needed basis at home for weight gain more than 3 pounds and dyspnea/orthopnea, family was counseled already History of aortic valve status post TAVR A-fib without RVR Continue Eliquis and AV chema blocking agent metoprolol along amiodarone Heart rate has been below 110 If heart rate stays above 110 on exertion we can increase the dose of metoprolol to 50 mg twice daily Pseudomonas positive sputum, history of bronchiectasis Her symptoms of shortness of breath are likely related to bronchiectasis, She is not requiring oxygen Has been afebrile CT chest did not show signs of PE Disposition: Home on Friday Hemodynamically stable Cardiac diet COVID-negative Full code Attestations 2 Medical Necessity Statement*: Continue medical management, discharge tomorrow Diagnoses Chronic diastolic congestive heart failure I50.32 Heart failure chronicity: chronic Nonrheumatic aortic valve stenosis I35.0 Cardiac valve disease etiology: nonrheumatic Mitral regurgitation I34.0 Paroxysmal atrial fibrillation I48.0 Atrial fibrillation type: paroxysmal Atrial fibrillation with rapid ventricular response I48.91 Bronchiectasis J47.9
[2024-07-10] MEDS: trazodone 150 mg Tablet PO (20:03)
[2024-07-11] VITALS: BP 145/67; PULSE 90; RESP 13; TEMP 36.6; O2SAT 92
[2024-07-11 02:25] VITALS: PULSE 88; RESP 16; O2SAT 98
[2024-07-11] MEDS: ipratropium-albuterol 3 mL Neb INHALATION (02:25)
[2024-07-11 03:28] LABS: Basophils # 0.1 10^3/uL (0.0-0.1); Basophils % 1.1 %; Eosinophils # 0.4 10^3/uL (0.0-0.8); Eosinophils % 4.9 %; Hematocrit 37.1 % (36-47); Lymphocytes # 2.1 10^3/uL (0.8-4.8); Lymphocytes % 29.9 %; Mean Corpuscular HGB Conc 30.7 g/dL (30-55); Mean Corpuscular Hemoglobin 25.8 pg (27-33); Mean Corpuscular Volume 83.9 fl (85-98); Mean Platelet Volume 9.9 fL (7.4-10.4); Monocytes # 0.7 10^3/uL (0.2-0.9); Monocytes % 9.8 %; Neutrophils # 3.85 10^3/uL (1.8-7.7); Nucleated Red Blood Cells % 0 %; Platelet Count 183 10^3/cmm (157-399); Red Blood Count 4.42 10^6/uL (3.85-5.65); Red Cell Distribution Width 16.5 % (12.1-15.1); White Blood Count 7.13 10^3/uL (3.29-11.43)
[2024-07-11 03:48] LABS: Anion Gap 15.4 (5-19); Blood Urea Nitrogen 26 mg/dL (8-23); Calcium 9.7 mg/dL (8.5-10.5); Carbon Dioxide 26 mmol/L (22-29); Chloride 96 mmol/L (98-107); Creatinine Clr Calc Pharmacy 31.8329; Glucose 99 mg/dL (65-115); Osmolality Calculated 281 mOsm/kg (285-295); Potassium 4.4 mmol/L (3.5-5.1); Sodium 133 mmol/L (136-145)
[2024-07-11 04:00] VITALS: BP 121/69; PULSE 89; RESP 14; TEMP 36.4; O2SAT 93
[2024-07-11 08:21] VITALS: BP 126/49; PULSE 91; RESP 19; TEMP 36.4; O2SAT 97
[2024-07-11] MEDS: FUROsemide 10 mg/mL SDV 10mL 40 MG IVP (08:42)
[2024-07-11] MEDS: pantoprazole DR 40 mg Tablet PO (08:43)
[2024-07-11] MEDS: cefepime 2,000 MG in sodium chloride 0.9% (plus) 50 ML 100 MG IV (08:43)
[2024-07-11] MEDS: doxycycline 100 mg Tablet PO (08:43)
[2024-07-11] MEDS: sennosides-docusate Tablet 1 TAB PO (08:43)
[2024-07-11] MEDS: apixaban 5 mg Tablet 2.5 MG PO (08:43)
[2024-07-11] MEDS: potassium chloride ER 10 mEq Tablet PO (08:43)
[2024-07-11] MEDS: amiodarone 200 mg Tablet PO (08:44)
[2024-07-11] MEDS: metoprolol tartrate 25 mg Tablet PO (08:44)
--- NOTE | 2024-07-11 08:45 | PM.DCS ---
Discharge Providers Date of Admission: 07/09/24 17:39 Date of Discharge: July 11, 2024 Attending Provider at Admission: Viviane Judge MD Attending Provider at Discharge: Viviane Judge MD Primary Care Provider: Stoney Jo Diagnoses at Discharge Discharge Diagnosis (1) Diastolic congestive heart failure: Status: Acute Qualifiers: Heart failure chronicity: chronic Qualified Code(s): I50.32 - Chronic diastolic (congestive) heart failure (2) Aortic stenosis: Status: Acute Qualifiers: Cardiac valve disease etiology: nonrheumatic Qualified Code(s): I35.0 - Nonrheumatic aortic (valve) stenosis (3) Mitral regurgitation: Status: Acute (4) Atrial fibrillation: Status: Acute Qualifiers: Atrial fibrillation type: paroxysmal Qualified Code(s): I48.0 - Paroxysmal atrial fibrillation (5) Atrial fibrillation with rapid ventricular response: Status: Acute (6) Bronchiectasis: Status: Acute Reason for Visit Reason for Visit: SOB Brief History: Jes Durbin is an 89-year-old female with past medical history of aortic stenosis status post TAVR, diastolic CHF and bronchiectasis. The patient presented with complaints of worsening shortness of breath. 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 In the ER her D-dimer was high but she had a negative CTA chest. Her CT did show signs of vascular congestion. She admitted to having dyspnea with lying flat. Hospital Course Hospital Course The patient was admitted with shortness of breath and was found to move with IV Lasix therapy with cefepime. The cause of her dyspnea was likely due to diastolic heart failure with fluid overload as her CT scan showed signs of vascular congestion. She will be discharged home on Lasix 40 mg to be taken on days that her weight increases by 3 pounds. We will also discharge her with cefdinir to cover any secondary infection related to her bronchiectasis. The patient will be started on Eliquis for A-fib prophylaxis. Patient will follow-up with her PCP this coming week for further evaluation. The patient is feeling well at this time and request to be discharged home. All questions were answered. She is in agreement with the current plan of care. Physical Exam Narrative: General: Alert and oriented x 3. In no acute distress. Mouth: No erythema or tonsilar enlargement. No masses noted. Neck: No thyromegaly. No lymphadenopathy. Heart: Irregular rhythm with regular rate. 1/6 systolic murmur present. Lungs: Diffuse crackles noted. No significant wheezes or rhonchi. Abdomen: Soft, non-tender. Extremities: No pitting edema. Discharge Data Studies Completed and Pending Completed Studies During Hospitalization Category Date Time Status CTA chest [CT angio chest PE protcl [id number]] Stat Cat Scan 07/09/24 14:42 Completed XR chest 1V portable [id number] Urgent Exams 07/09/24 13:01 Completed Pending at discharge Category Date Time Status Sputum Culture and Gram Stain Stat Lab 07/09/24 21:25 Results Radiology Impressions Chest X-Ray 07/09/24 13:01 Impression: 1. Patchy bibasilar opacities. 2. Cardiomegaly with mild pulmonary vascular congestion. 3. Atherosclerosis. Chest CTA 07/09/24 14:42 IMPRESSION: 1. No pulmonary embolism. 2. Small bilateral pleural effusions, LEFT greater than RIGHT. 3. Mild pulmonary edema. 4. Marked enlargement of the LEFT heart chambers. Laboratory Results WBC 7.13 10^3/uL (3.29-11.43) 07/11/24 02:41 RBC 4.42 10^6/uL (3.85-5.65) 07/11/24 02:41 Hgb 11.40 g/dL (11.27-16.99) 07/11/24 02:41 Hct 37.1 % (36-47) 07/11/24 02:41 MCV 83.9 fl (85-98) L 07/11/24 02:41 MCH 25.8 pg (27-33) L 07/11/24 02:41 MCHC 30.7 g/dL (30-55) 07/11/24 02:41 RDW 16.5 % (12.1-15.1) H 07/11/24 02:41 Plt Count 183 10^3/cmm (157-399) 07/11/24 02:41 MPV 9.9 fL (7.4-10.4) 07/11/24 02:41 Neut % (Auto) 54.0 % 07/11/24 02:41 Lymph % (Auto) 29.9 % 07/11/24 02:41 [place] % (Auto) 9.8 % 07/11/24 02:41 Eos % (Auto) 4.9 % 07/11/24 02:41 Baso % (Auto) 1.1 % 07/11/24 02:41 Neut # (Auto) 3.85 10^3/uL (1.8-7.7) 07/11/24 02:41 Lymph # (Auto) 2.1 10^3/uL (0.8-4.8) 07/11/24 02:41 [place] # (Auto) 0.7 10^3/uL (0.2-0.9) 07/11/24 02:41 Eos # (Auto) 0.4 10^3/uL (0.0-0.8) 07/11/24 02:41 Baso # (Auto) 0.1 10^3/uL (0.0-0.1) 07/11/24 02:41 Nucleated RBC % (auto) 0 % 07/11/24 02:41 Nucleated RBCs # 0.0 /100WBC 07/11/24 02:41 D-Dimer 1.55 ug/mLFEU (0-0.59) H 07/09/24 17:02 Sodium 133 mmol/L (136-145) L 07/11/24 02:41 Potassium 4.4 mmol/L (3.5-5.1) 07/11/24 02:41 Chloride 96 mmol/L (98-107) L 07/11/24 02:41 Carbon Dioxide 26 mmol/L (22-29) 07/11/24 02:41 Anion Gap 15.4 (5-19) 07/11/24 02:41 BUN 26 mg/dL (8-23) H 07/11/24 02:41 Creatinine 0.8 mg/dL (0.5-0.9) 07/11/24 02:41 GFR Calculation Not Reportable 07/11/24 02:41 Glucose 99 mg/dL (65-115) 07/11/24 02:41 Calculated Osmolality 281 mOsm/kg (285-295) L 07/11/24 02:41 Calcium 9.7 mg/dL (8.5-10.5) 07/11/24 02:41 Magnesium 2.0 mg/dL (1.7-2.3) 07/10/24 04:33 Total Bilirubin 0.4 mg/dL (0.15-1.2) 07/09/24 13:43 AST 28 U/L (0-32) 07/09/24 13:43 ALT 18 U/L (0-33) 07/09/24 13:43 Alkaline Phosphatase 122 U/L (35-105) H 07/09/24 13:43 Troponin T Baseline 26 ng/L (0-10) H 07/09/24 13:43 Troponin T 120 Minute 24.76 ng/L (0-10) H 07/09/24 16:34 Delta Troponin T -1.24 ABS# (0-10) L 07/09/24 16:34 NT-Pro-B Natriuret Pep 9917 pg/mL (0-450) H 07/09/24 13:43 Total Protein 7.4 g/dL (6.6-8.7) 07/09/24 13:43 Albumin 4.2 g/dL (3.5-5.2) 07/09/24 13:43 Globulin 3.2 g/dL (1.3-4.6) 07/09/24 13:43 Procalcitonin 0.07 ng/mL (0-0.5) 07/09/24 13:43 Adenovirus (PCR) Not detected (NOT DETECT) 07/09/24 13:47 C. pneumoniae DNA (PCR) Not detected (NOT DETECT) 07/09/24 13:47 Coronavirus 229E (PCR) Not detected (NOT DETECT) 07/09/24 13:47 Human Metapneumovir PCR Not detected (NOT DETECT) 07/09/24 13:47 Influenza A (H1) PCR Not detected (NOT DETECT) 07/09/24 13:47 Influ A (H1/09) PCR Not detected (NOT DETECT) 07/09/24 13:47 Influenza A (H3) PCR Not detected (NOT DETECT) 07/09/24 13:47 Influenza Type A (PCR) Not detected (NOT DETECT) 07/09/24 13:47 Influenza Type B (PCR) Not detected (NOT DETECT) 07/09/24 13:47 M. pneumoniae (PCR) Not detected (NOT DETECT) 07/09/24 13:47 Parainfluenza 1 (PCR) Not detected (NOT DETECT) 07/09/24 13:47 Parainfluenza 2 (PCR) Not detected (NOT DETECT) 07/09/24 13:47 Parainfluenza 3 (PCR) Not detected (NOT DETECT) 07/09/24 13:47 Parainfluenza 4 (PCR) Not detected (NOT DETECT) 07/09/24 13:47 RSV Type A (PCR) Not detected (NOT DETECT) 07/09/24 13:47 RSV Type B (PCR) Not detected (NOT DETECT) 07/09/24 13:47 Entero/Rhino (PCR) Not detected (NOT DETECT) 07/09/24 13:47 SARS-CoV-2 (PCR) Not detected (NOT DETECT) 07/09/24 13:47 Vitals Last Vital Signs Temp 97.5 F L 07/11/24 08:21 Pulse 91 07/11/24 08:21 Resp 19 H 07/11/24 08:21 BP 126/49 07/11/24 08:21 Pulse Ox 97 07/11/24 08:21 O2 Del Method Room Air 07/11/24 08:21 Discharge Plan Discharge Patient Disposition: Home Condition: Stable Prescriptions: New Eliquis 5 mg Tablet 2.5 mg PO BID@0900,2100 Qty: 60 0RF furosemide 40 mg tablet 40 mg PO QAM PRN (Reason: weight gain) Qty: 30 0RF Rx Instructions: Take one tab PO Qam as needed for weight gain of 3 lbs potassium chloride [Klor-Con 10] 10 mEq tablet extended release 10 meq PO DAILY PRN (Reason: When taking Furosemide) Qty: 30 0RF Rx Instructions: Take one tab PO daily on days that you take Furosemide cefdinir 300 mg capsule 300 mg PO BID 7 Days Qty: 14 0RF Continued omeprazole 40 mg capsule,delayed release(DR/EC) 40 mg PO QAM trazodone 150 mg tablet 150 mg PO QPM metoprolol succinate 25 mg tablet extended release 24 hr 25 mg PO DAILY Qty: 90 3RF amiodarone 200 mg tablet 200 mg PO DAILY Qty: 90 3RF Calcium + D 600 mg-5 mcg (200 unit) Tablet 1 tab PO QPM Aspir-81 81 mg Tablet,Delayed Release (Dr/Ec) 81 mg PO DAILY albuterol sulfate 90 mcg/actuation HFA aerosol inhaler 2 puff INHALATION Q4H PRN (Reason: Shortness Of Breath Or Wheezing) Probiotic 3 billion cell Capsule 3,000 mmu cells PO QPM Rx Instructions: administer with a meal Trelegy Ellipta 100-62.5-25 mcg blister with device 1 inh INHALATION BID ferrous sulfate 325 mg (65 mg iron) tablet,delayed release (DR/EC) 325 mg PO BID Discontinued potassium chloride 10 mEq tablet extended release 10 meq PO DAILY Qty: 90 3RF furosemide 20 mg tablet 20 mg PO DAILY Discharge Orders: Discharge Order (Routine); Ordered 07/11/24 Ordered By: Cesar Pradhan Referrals: Stoney Jo [Primary Care Provider] - 4-7 days Discharge Diet: Usual diet Discharge Activity: Increase activity as tolerated Patient Instructions: Opioid Safety Discharge Attestations Time Spent in Discharge Care*: greater than 30 min Quality Metrics Clinical Quality Measures [ No reported AMI, CVA or VTE this stay] Coding Level of Care Code Acute Code for Chg Fwd Diagnoses Chronic diastolic congestive heart failure I50.32 Heart failure chronicity: chronic Nonrheumatic aortic valve stenosis I35.0 Cardiac valve disease etiology: nonrheumatic Mitral regurgitation I34.0 Paroxysmal atrial fibrillation I48.0 Atrial fibrillation type: paroxysmal Atrial fibrillation with rapid ventricular response I48.91 Bronchiectasis J47.9
[2024-07-11 08:47] VITALS: BP 134/66
[2024-07-11 09:40] VITALS: PULSE 91; RESP 18; O2SAT 97
== END 2024-07-11 11:45 | disposition home or self-care (01) ==
LOC: ER 16:29 → MEDSURG 17:40
PROVIDERS: Admitting Provider Internal Medicine; Emergency Provider Physician Assistant; PCP Family Medicine; Visit Provider Family Medicine
DX: J47.9 Bronchiectasis, uncomplicated (principal); I50.32 Chronic diastolic (congestive) heart failure; I35.0 Nonrheumatic aortic (valve) stenosis; I34.0 Nonrheumatic mitral (valve) insufficiency; I48.0 Paroxysmal atrial fibrillation; J90 Pleural effusion, not elsewhere classified; Z79.82 Long term (current) use of aspirin
CPT/HCPCS: 36415; 71045; 71275; 80048; 80053; 83735; 83880; 84145; 84484; 85025; 85378; 87070; 87077; 87186; 87205; 87486; 87581; 87633; 93005; 94640; 94760; 96365; 96375; 96376; 99285; G0378; J0692; J1940; J3490

== ENCOUNTER → 2024-07-22 10:45 | Outpatient (BNVA) | payer MEDICARE, SELFPAY | PROVIDERS: PCP Family Medicine; Visit Provider Nurse Practitioner Family | DX: I50.32 Chronic diastolic (congestive) heart failure (principal) | CPT/HCPCS: 99213 ==

== ENCOUNTER → 2024-08-10 10:30 | Outpatient (BNVA) | payer MEDICARE, SELFPAY | PROVIDERS: PCP Family Medicine; Visit Provider Student in an Organized Health Care Education/Training Program | DX: J47.9 Bronchiectasis, uncomplicated (principal); J15.1 Pneumonia due to Pseudomonas; Z22.39 Carrier of other specified bacterial diseases | CPT/HCPCS: 99204 ==